=== PATIENT | female | born 1930 | race Caucasian/White ===

== ENCOUNTER → 2018-07-23 | Outpatient (CLI) | payer MEDICARE ==
--- NOTE | 2018-07-23 15:04 | Diagnostic Imaging Report ---
EXAM: Renal Ultrasound INDICATION: UTI COMPARISON: None TECHNIQUE: Transverse and longitudinal images of the kidneys and bladder were obtained. FINDINGS: Right Kidney: Length: Measures up to 10.2 cm Appearance: Normal echogenicity. Collecting system: No hydronephrosis Stones: None Cyst/Mass: None Left Kidney: Length: Measures up to 10.6 cm Appearance: Normal echogenicity. Collecting system: No hydronephrosis Stones: None Cyst/Mass: None Bladder: Unremarkable in appearance. Bilateral ureteral jets are seen. IMPRESSION: Unremarkable bilateral renal ultrasound. Signed by: Dr. Geo Albert MD on 07/23/2018 3:01 PM
--- NOTE | 2018-07-23 15:32 | Diagnostic Imaging Report ---
Exam: [facility] - Two Views Clinical History: UTI Comparison: Same day bilateral renal ultrasound. Findings: Bowel gas partially obscures visualization of the bilateral kidneys. No evidence of stone overlying the urinary system. Nonobstructive bowel gas pattern with moderate retained stool. No acute bony abnormality. 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 Impression: No acute radiographic abnormality. No radiographic evidence of urinary stone. Signed by: Dr. Geo Albert MD on 07/23/2018 3:29 PM
== END ==
LOC: US 13:53
PROVIDERS: ATTEND Urology
DX: N39.0 Urinary tract infection, site not specified (principal)
CPT/HCPCS: 74018; 76770

== ENCOUNTER 2019-01-19 15:08 | Emergency (ER) | payer MEDICARE ==
[~2019-01-19] VITALS: Ht 170.2 cm; Wt 63.5 kg
--- OUTSIDE RECORDS SUMMARY | 2019-01-19 15:12 | XMS REPORT | Continuity of Care Document ---
Author Author [facility] Interface Address Unknown Phone Unavailable Problems Problem Status Onset Date Classification Date Reported Comments Source AMS/HYPONATREMIA Active 04/01/2018 [facility] URINARY SYMPTOMS Active 04/01/2018 [facility] Auditory hallucinations 03/24/2018 03/27/2018 [facility] Acute lower UTI 03/24/2018 03/27/2018 [facility] AMS Active 03/24/2018 [facility] CHF EXACERBATION Active 04/17/2017 [facility] WEAKNESS/SOB Active 04/17/2017 [facility] CVA Active 05/30/2014 [facility] FALL Active 05/30/2014 [facility] STROKE Active 05/30/2014 [facility] Atrial fibrillation Active Problem 04/05/2018 [facility] [place] Bradycardia, severe sinus Active Problem 04/05/2018 [facility] [place] Pacemaker Active Problem 04/05/2018 [facility] CVA (<span ID="[id number]</span>) Resolved Problem 04/05/2018 [facility] Hemiparesis, right Active Problem 04/05/2018 [facility] [place] HTN (<span ID="[id number]">Confirmed</span>) Active Problem 04/05/2018 [facility] [place] Implantation of cardiac pacemaker Active Problem 04/05/2018 [facility] [place] 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 [facility] [place] SSS (<span ID="[id number]">Confirmed</span>) Active Problem 04/05/2018 [facility] [place] Temporary cardiac pacemaker procedure Active Problem 04/05/2018 [facility] [place] CVA Active [facility] HEART FAILURE, UNSPECIFIED Active [facility] ALTERED MENTAL STATUS, UNSPECIFIED Active [facility] HYPO-OSMOLALITY AND HYPONATREMIA Active [facility] Medications Medication Details Route Status Patient Instructions Ordering Provider Order Date Source Vitamin B 12 1,000 microgram, 2 tab, Route: PO, Drug form: TAB, Daily, Dosing Weight 77.273, kg, Start date: 04/03/18 14:00:00 CDT, Duration: 30 day, Stop date: 05/03/18 9:00:00 CDTNotes: (Same As: Vitamin B12) No Longer Active 04/03/2018 [facility] Levofloxacin 500 MG Oral Tablet [Levaquin] 500 mg=1 tab, PO, Q24H, X 7 day, # 7 tab, 0 Refill(s), Pharmacy: [facility] [id number] Active 04/02/2018 [facility] bumetanide 1 mg oral tablet 1 mg=1 tab, PO, Daily, # 30 tab, 0 Refill(s), other Active 04/02/2018 [facility] cyanocobalamin 1000 mcg with salcaprozate sodium oral tablet 1,000 microgram, PO, Daily, # 30 tab, 0 Refill(s), Pharmacy: [facility] [id number] Active 04/02/2018 [facility] Aspirin Enteric Coated 81 mg, 1 tab, Route: PO, Drug form: ECTAB, Daily, Dosing Weight 77.273, kg, Start date: 04/02/18 9:00:00 CDT, Duration: 30 day, Stop date: 05/01/18 9:00:00 CDTNotes: Do not crush or chew. (Same As: Ecotrin) Inactive 04/02/2018 [facility] valsartan 320 mg, Route: PO, Drug form: TAB, Bedtime, Dosing Weight 77.273, kg, Start date: 04/01/18 21:00:00 CDT, Duration: 30 day, Stop date: 04/30/18 21:00:00 CDT Inactive 04/02/2018 [facility] Amlodipine 10 mg, 2 tab, Route: PO, Drug form: TAB, Bedtime, Dosing Weight 77.273, kg, Start date: 04/01/18 21:00:00 CDT, Duration: 30 day, Stop date: 04/30/18 21:00:00 CDTNotes: (Same as: Norvasc) No Longer Active 04/02/2018 [facility] Diflucan 150 mg, 3 tab, Route: PO, Drug form: TAB, ONCE, Dosing Weight 77.273, kg, Start date: 04/01/18 20:09:00 CDT, Stop date: 04/01/18 20:09:00 CDT, ABX Indication: Other (specify in Comments)Notes: (Same as: Diflucan) Inactive 04/02/2018 [facility] cefepime 1 gm, Route: IVPB, [id number], Dosing Weight 77.273, kg, (CrCl >/=50 ml/min), Start date: 04/01/18 20:00:00 CDT, Stop date: 04/10/18 15:00:00 CDT, ABX Indication: Urinary Tract InfectionNotes: (Same As: Maxipime) MEDICATION WASTE Product Size: 1000 mg Product Wasted: ___ mg No Longer Active 04/02/2018 [facility] Hydralazine 10 mg, 0.5 mL, Route: IVP, Drug form: INJ, Q4H, Dosing Weight 77.273, kg, PRN Hypertension, Start date: 04/01/18 19:16:00 CDT, Duration: 30 day, Stop date: 05/01/18 19:15:00 CDTNotes: (Same as: Tobias cárdenas) Push over 5 minutes No Longer Active 04/02/2018 [facility] Melatonin 3 mg, 1 tab, Route: PO, Drug form: TAB, Bedtime, Dosing Weight 77.273, kg, PRN Sleep, Start date: 04/01/18 19:16:00 CDT, Duration: 30 day, Stop date: 05/01/18 19:15:00 CDTNotes: (Same as: Melatonin) No Longer Active 04/02/2018 [facility] Bumex 1 mg, BID, 0 Refill(s) No Longer Active 04/01/2018 [facility] cephalexin 500 mg oral capsule 500 mg=1 cap, PO, QID, # 20 cap, 0 Refill(s) No Longer Active 04/01/2018 [facility] Nitrofurantoin 100 MG Oral Capsule [Macrobid] 100 mg=1 cap, PO, BID, # 14 cap, 0 Refill(s) No Longer Active 04/01/2018 [facility] valsartan 320 mg oral tablet 320 mg=1 tab, PO, Bedtime, # 30 tab, 0 Refill(s) Active 04/01/2018 [facility] spironolactone 25 mg oral tablet 25 mg=1 tab, PO, Daily, # 30 tab, 3 Refill(s) Active 04/01/2018 [facility] Ondansetron 4 mg, 2 mL, Route: IVP, Drug form: INJ, Q6H, Dosing Weight 77.273, kg, PRN Nausea & Vomiting, Start date: 04/01/18 15:21:00 CDT, Duration: 30 day, Stop date: 05/01/18 15:20:00 CDTNotes: (Same as: Hanna) MEDICATION WASTE Product Size: 4 mg Product Wasted: ___ mg No Longer Active 04/01/2018 [facility] Docusate 100 mg, 1 cap, Route: PO, Drug form: CAP, BID, Dosing Weight 77.273, kg, PRN as needed for constipation, Start date: 04/01/18 15:21:00 CDT, Duration: 30 day, Stop date: 05/01/18 15:20:00 CDTNotes: (Same as: Colace) (Do Not Crush) No Longer Active 04/01/2018 [facility] Acetaminophen 325 MG / Hydrocodone Bitartrate 5 MG Oral Tablet 1 tab, Route: PO, Drug Form: TAB, Dosing Weight 77.273, kg, Q6H, PRN Pain Score 4-6, Start date: 04/01/18 15:21:00 CDT, Duration: 30 day, Stop date: 05/01/18 15:20:00 CDTNotes: (Same as: [place] 325/5) Do not exceed 4gm/day of acetaminophen. No Longer Active 04/01/2018 [facility] Acetaminophen 650 mg, 2 tab, Route: PO, Drug form: TAB, Q6H, Dosing Weight 77.273, kg, PRN Pain 1-3/Temp > 100.4 F, Start date: 04/01/18 15:21:00 CDT, Duration: 30 day, Stop date: 05/01/18 15:20:00 CDTNotes: Do not exceed 4 gm/day. (Same as: Tylenol) No Longer Active 04/01/2018 [facility] NS 1,000 mL 1,000 mL, Rate: 75 ml/hr, Infuse over: 13.3 hr, Route: IV, Dosing Weight 77.273 kg, Total Volume: 1,000, Start date: 04/01/18 14:27:00 CDT, Duration: 30 day, Stop date: 05/01/18 14:26:00 CDT, 1.94, m2 No Longer Active 04/01/2018 [facility] Sodium Chloride 0.9% (Bolus) IV 1,000 mL, 1000 ml/hr, Infuse Over: 1 hr, Route: IV, 1,000, Drug form: INJ, ONCE, Priority: STAT, Dosing Weight 77.273 kg, Start date: 04/01/18 14:25:00 CDT, Stop date: 04/01/18 14:25:00 CDT Inactive 04/01/2018 [facility] NS (Bolus) IV 250 mL, 250 ml/hr, Infuse Over: 1 hr, Route: IV, ONCE, Priority: STAT, Dosing Weight 77.273 kg, Start date: 04/01/18 13:52:00 CDT, Stop date: 04/01/18 13:52:00 CDT Inactive 04/01/2018 [facility] cephalexin 500 mg oral capsule 500 mg=1 cap, PO, QID, X 5 day, # 20 cap, 0 Refill(s), Pharmacy: [facility] [id number] Active 03/24/2018 [facility] Ceftriaxone 1 gm, Route: IVP, ONCE, Dosing Weight 78.636, kg, Priority: STAT, Start date: 03/24/18 17:05:00 CDT, Stop date: 03/24/18 17:05:00 CDT, ABX Indication: Urinary Tract InfectionNotes: (Same As: Rocephin). Use with 100 mL NS and infuse over 30 min MEDICATION WASTE Product Size: 1000 mg Product Wasted: ___ mg Inactive 03/24/2018 [facility] Saline Flush 0.9% 10 mL, Route: IVP, Drug Form: INJ, Dosing Weight 92.5, kg, PRN, PRN Line Flush, Start date: 03/24/18 14:47:00 CDT, Duration: 30 day, Stop date: 04/23/18 14:46:00 CDTNotes: (Same as: BD Posiflush) Inactive 03/24/2018 [facility] Spironolactone 25 MG Oral Tablet [Aldactone] 25 mg=1 tab, PO, Daily, # 30 tab, 0 Refill(s), Pharmacy: [facility] [id number] Active 04/21/2017 [facility] bumetanide 1 mg oral tablet 1 mg=1 tab, PO, BID, # 60 tab, 0 Refill(s), Pharmacy: [facility] [facility] [id number] Active 04/21/2017 [facility] valsartan 320 mg oral tablet 320 mg=1 tab, PO, Daily, # 30 tab, 0 Refill(s), Pharmacy: [facility] [id number] Active 04/21/2017 [facility] Bumex 2 mg, Route: IVP, Q6H, Dosing Weight 92.5, kg, Start date: 04/21/17 0:00:00 CDT, Duration: 4 doses or times, Stop date: 04/21/17 18:00:00 CDT No Longer Active 04/21/2017 [facility] Bumex 2 mg, 8 mL, Route: IVP, Drug form: INJ, Q6H, Dosing Weight 92.5, kg, Priority: NOW, Start date: 04/20/17 18:26:00 CDT, Duration: 4 doses or times, Stop date: 04/21/17 12:00:00 CDTNotes: (Same As: Bumex) No Longer Active 04/20/2017 [facility] Bumex 2 mg, 8 mL, Route: IVP, Drug form: INJ, ONCE, Dosing Weight 92.5, kg, Priority: Routine, Start date: 04/20/17 14:30:00 CDT, Stop date: 04/20/17 14:30:00 CDTNotes: (Same As: Bumex) Inactive 04/20/2017 [facility] potassium chloride 20 mEq oral tablet, extended release 20 mEq, 1 tab, Route: PO, Drug form: ERTAB, Daily, Dosing Weight 92.5, kg, Start date: 04/20/17 9:00:00 CDT, Duration: 30 day, Stop date: 05/19/17 9:00:00 CDTNotes: (Same as: K-Dur 20) "Do Not Crush" With food and full glass of water No Longer Active 04/20/2017 [facility] Bumex 2 mg, 8 mL, Route: IVP, Drug form: INJ, Q8H, Dosing Weight 92.5, kg, Priority: NOW, Start date: 04/19/17 20:38:00 CDT, Duration: 3 doses or times, Stop date: 04/20/17 12:00:00 CDTNotes: (Same As: Bumex) No Longer Active 04/20/2017 [facility] Furosemide 40 MG Oral Tablet 40 mg, 1 tab, Route: PO, Drug form: TAB, After Lunch, Dosing Weight 92.5, kg, Start date: 04/19/17 12:30:00 CDT, Duration: 30 day, Stop date: 05/18/17 12:30:00 CDTNotes: (Same as: Lasix) May cause GI upset. Give with food or milk. Inactive 04/19/2017 [facility] Bumex 2 mg, 8 mL, Route: IVP, Drug form: INJ, Q12H, Dosing Weight 92.5, kg, Start date: 04/18/17 21:00:00 CDT, Duration: 30 day, Stop date: 05/18/17 9:00:00 CDTNotes: (Same As: Bumex) No Longer Active 04/19/2017 [facility] Diovan 320 mg, 2 tab, Route: PO, Drug form: TAB, QPM, Dosing Weight 92.5, kg, Start date: 04/18/17 17:00:00 CDT, Duration: 30 day, Stop date: 05/17/17 17:00:00 CDTNotes: Same as Diovan No Longer Active 04/18/2017 [facility] potassium chloride 20 mEq oral tablet, extended release 20 mEq, 1 tab, Route: PO, Drug form: ERTAB, TID, Dosing Weight 92.5, kg, Priority: NOW, Start date: 04/18/17 12:25:00 CDT, Duration: 30 day, Stop date: 05/18/17 9:00:00 CDTNotes: (Same as: K-Dur 20) "Do Not Crush" With food and full glass of water No Longer Active 04/18/2017 [facility] Saline Flush 0.9% 10 ml, Route: IVP, Drug Form: INJ, Dosing Weight 93.636, kg, Q12H, Start date: 04/18/17 9:00:00 CDT, Duration: 30 day, Stop date: 05/17/17 21:00:00 CDTNotes: (Same as: BD Posiflush) No Longer Active 04/18/2017 [facility] Furosemide 20 mg, 2 mL, Route: IVP, Drug form: INJ, Q12H, Dosing Weight 93.636, kg, Start date: 04/18/17 9:00:00 CDT, Duration: 30 day, Stop date: 05/17/17 21:00:00 CDTNotes: (Same as: Lasix) Inactive 04/18/2017 [facility] metoprolol extended release 50 mg, 1 tab, Route: PO, Drug form: ERTAB, Daily, Start date: 04/18/17 9:00:00 CDT, Duration: 30 day, Stop date: 05/17/17 9:00:00 CDTNotes: (Same as: Toprol XL) May split tab, but do not crush. No Longer Active 04/18/2017 [facility] Amlodipine 10 mg, 2 tab, Route: PO, Drug form: TAB, Daily, Dosing Weight 93.636, kg, Start date: 04/18/17 9:00:00 CDT, Duration: 30 day, Stop date: 05/17/17 9:00:00 CDTNotes: (Same as: Norvasc) Inactive 04/18/2017 [facility] ergocalciferol 50,000 IntlUnit, 1 cap, Route: PO, Drug form: CAP, Daily, Dosing Weight 93.636, kg, Start date: 04/18/17 9:00:00 CDT, Duration: 3 day, Stop date: 04/20/17 9:00:00 CDTNotes: (Same as: Vitamin D) "Do Not Crush" No Longer Active 04/18/2017 [facility] Zofran 4 mg, 2 mL, Route: IV, Drug form: INJ, Q4H, Dosing Weight 92.5, kg, PRN as needed for nausea/vomiting, Start date: 04/18/17 5:53:00 CDT, Duration: 30 day, Stop date: 05/18/17 5:52:00 CDTNotes: (Same as: Zofran) MEDICATION WASTE Product Size: 4 mg Product Wasted: ___ mg No Longer Active 04/18/2017 [facility] Aspirin Enteric Coated 81 mg, 1 tab, Route: PO, Drug form: ECTAB, Q24H, Dosing Weight 93.636, kg, Start date: 04/18/17 0:00:00 CDT, Duration: 30 day, Stop date: 05/17/17 0:00:00 CDTNotes: Do not crush or chew. (Same As: Ecotrin) No Longer Active 04/18/2017 [facility] Calcium Gluconate 3 gm, 30 mL, Route: IVPB, Drug form: INJ, PRN, Dosing Weight 93.636, kg, PRN Abnormal Lab Result, For NON-ICU Patients Only., Start date: 04/17/17 22:08:00 CDT, Duration: 30 day, Stop date: 05/17/17 22:07:00 CDTNotes: WASTE: F/P - Sink; E - Municipal Trash Bin No Longer Active 04/18/2017 [facility] Magnesium Sulfate 2 gm, 50 mL, Route: IVPB, Drug form: INJ, PRN, Dosing Weight 93.636, kg, PRN Abnormal Lab Result, For NON-ICU Patients Only., Start date: 04/17/17 22:08:00 CDT, Duration: 30 day, Stop date: 05/17/17 22:07:00 CDTNotes: WASTE: F/P - Sink; E - Municipal Trash Bin No Longer Active 04/18/2017 [facility] Magnesium Oxide 800 mg, 2 tab, Route: PO, Drug form: TAB, PRN, Dosing Weight 93.636, kg, PRN Abnormal Lab Result, For NON-ICU Patients Only., Start date: 04/17/17 22:08:00 CDT, Duration: 30 day, Stop date: 05/17/17 22:07:00 CDTNotes: (Same as: Mag-Ox 400) Magnesium oxide [id number] elemental magnesium Dose=____mg magnesium oxide (___mg elemental magnesium) No Longer Active 04/18/2017 [facility] sodium phosphate + D5W 250 mL 30 mmol, 10 mL, Route: IVPB, PRN, Dosing Weight 93.636, kg, PRN Abnormal Lab Result, For NON-ICU Patients Only., Start date: 04/17/17 22:08:00 CDT, Duration: 30 day, Stop date: 05/17/17 22:07:00 CDT No Longer Active 04/18/2017 [facility] potassium phosphate + sodium chloride 0.9% INJ 250 mL 30 mmol, 10 mL, Route: IVPB, PRN, Dosing Weight 93.636, kg, PRN Abnormal Lab Result, For NON-ICU Patients Only., Start date: 04/17/17 22:08:00 CDT, Duration: 30 day, Stop date: 05/17/17 22:07:00 CDTNotes: (Same as: K Phosphate.) 1 mMol phoshate has 1.47 mEq potassium Infuse over 4 hours No Longer Active 04/18/2017 [facility] potassium chloride 10 mEq, 100 mL, Route: IVPB, Drug form: INJ, PRN, Dosing Weight 93.636, kg, PRN Abnormal Lab Result, For NON-ICU Patients Only, Start date: 04/17/17 22:08:00 CDT, Duration: 30 day, Stop date: 05/17/17 22:07:00 CDTNotes: Infuse at a rate of 10 mEq/hr. (Same as: KCL) No Longer Active 04/18/2017 [facility] potassium phosphate-sodium phosphate 250 mg-280 mg-160 mg oral powder for reconstitution 2 pkt, Route: PO, Drug Form: PDR/REC, Dosing Weight 93.636, kg, PRN, PRN Abnormal Lab Result, For NON-ICU Patients Only, Start date: 04/17/17 22:08:00 CDT, Duration: 30 day, Stop date: 05/17/17 22:07:00 CDTNotes: (Same as: Phos-NaK) Each 1.5 gm pkt has 250mg phosphorous. Mix w/2.5oz water and stir. No Longer Active 04/18/2017 [facility] Saline Flush 0.9% 10 ml, Route: IVP, Drug Form: INJ, Dosing Weight 93.636, kg, PRN, PRN Line Flush, Start date: 04/17/17 22:08:00 CDT, Duration: 30 day, Stop date: 05/17/17 22:07:00 CDT Inactive 04/18/2017 [facility] Enoxaparin 40 mg, 0.4 mL, Route: SUB-Q, Drug form: INJ, [id number], Dosing Weight 93.636, kg, Start date: 04/17/17 22:00:00 CDT, Duration: 30 day, Stop date: 05/16/17 22:00:00 CDTNotes: (Same as: Lovenox) No Longer Active 04/18/2017 [facility] Nitroglycerin 0.4 MG Sublingual Tablet [Nitrostat] 0.4 mg, 1 tab, Route: SL, Drug form: TAB, Q5Min, Dosing Weight 93.636, kg, PRN Chest Pain, Start date: 04/17/17 21:50:00 CDT, Duration: 3 doses or times, Stop date: Limited # of timesNotes: (Same as:Nitroquick, Nitrostat) "Do Not Crush" Sublingual tablet No Longer Active 04/18/2017 [facility] Hydralazine 10 mg, 0.5 mL, Route: IV, Drug form: INJ, Q4H, Dosing Weight 93.636, kg, PRN Hypertension, Start date: 04/17/17 21:49:00 CDT, Duration: 30 day, Stop date: 05/17/17 21:48:00 CDTNotes: (Same as: Apresoline) Push over 5 minutes No Longer Active 04/18/2017 [facility] Lopressor 2.5 mg, 2.5 mL, Route: IVP, Drug form: INJ, Q2H, Dosing Weight 93.636, kg, PRN Tachycardia, Start date: 04/17/17 21:49:00 CDT, Duration: 30 day, Stop date: 05/17/17 21:48:00 CDTNotes: (Same as: Lopressor) Push over 2 minutes No Longer Active 04/18/2017 [facility] Lorazepam 0.5 mg, 1 tab, Route: PO, Drug form: TAB, TID, Dosing Weight 93.636, kg, PRN Anxiety, Start date: 04/17/17 21:49:00 CDT, Duration: 30 day, Stop date: 05/17/17 21:48:00 CDTNotes: (Same as: Ativan) No Longer Active 04/18/2017 [facility] Furosemide 40 MG Oral Tablet 40 mg=1 tab, PO, Daily, 0 Refill(s) No Longer Active 04/18/2017 [facility] metoprolol tartrate 50 mg oral tablet 50 mg=1 tab, PO, Daily, 0 Refill(s) Active 04/18/2017 [facility] amLODIPine 10 mg oral tablet 10 mg=1 tab, PO, Daily, 0 Refill(s) Active 04/18/2017 [facility] Aspirin Enteric Coated 81 mg oral delayed release tablet 81 mg=1 tab, PO, Daily, 0 Refill(s) Active 04/18/2017 [facility] Lasix 40 mg, 4 mL, Route: IVP, Drug form: INJ, ONCE, Dosing Weight 93.636, kg, Priority: STAT, Start date: 04/17/17 19:03:00 CDT, Stop date: 04/17/17 19:03:00 CDTNotes: (Same as: Lasix) MEDICATION WASTE Product Size: 40 mg Product Wasted: ___ mg Inactive 04/18/2017 [facility] Saline Flush 0.9% 10 mL, Route: IVP, Drug Form: INJ, Dosing Weight 93.636, kg, PRN, PRN Line Flush, Start date: 04/17/17 19:03:00 CDT, Duration: 30 day, Stop date: 05/17/17 19:02:00 CDTNotes: (Same as: BD Posiflush) No Longer Active 04/18/2017 [facility] Lactulose 667 MG/ML Oral Solution 10 gm=15 mL, PO, BID, # 300 mL, 0 Refill(s) Active 07/04/2014 [facility] amLODIPine 5 mg oral tablet 5 mg=1 tab, PO, Daily, # 30 tab, 0 Refill(s) Active 07/04/2014 [facility] Potassium Chloride 20 MEQ Extended Release Tablet 20 mEq=1 tab, PO, Daily, # 30 tab, 0 Refill(s) Active 07/04/2014 [facility] Furosemide 40 MG Oral Tablet [Lasix] 40 mg=1 tab, PO, Daily, # 30 tab, 0 Refill(s) Active 07/04/2014 [facility] ergocalciferol 50,000 intl units oral capsule 50,000 IntlUnit=1 cap, PO, qWeek, # 3 cap, 0 Refill(s) Active 07/04/2014 [facility] metoprolol tartrate 25 mg oral tablet 25 mg=1 tab, PO, [id number], # 60 tab, 0 Refill(s) Active 07/04/2014 [facility] apixaban 2.5 mg oral tablet 5 mg=2 tab, PO, BID, # 60 tab, 0 Refill(s) Active 07/04/2014 [facility] Aspirin 81 MG Enteric Coated Tablet 81 mg=1 tab, PO, Daily, # 100 tab, 0 Refill(s) Active 07/04/2014 [facility] Furosemide 40 MG Oral Tablet [Lasix] 40 mg, 1 tab, Route: PO, Drug form: TAB, Daily, Dosing Weight 94.773, kg, Start date: 07/04/14 9:00:00, Duration: 30 day, Stop date: 08/02/14 9:00:00Notes: (Same as: Lasix) May cause GI upset. Give with food or milk. Inactive 07/04/2014 [facility] Potassium Chloride 20 MEQ Extended Release Tablet 20 mEq, 1 tab, Route: PO, Drug form: ERTAB, Daily, Dosing Weight 94.773, kg, Start date: 07/03/14 9:00:00, Duration: 30 day, Stop date: 08/01/14 9:00:00Notes: (Same as: K-Dur 20) "Do Not Crush" With food and full glass of water No Longer Active 07/03/2014 [facility] Potassium Chloride 40 mEq, 2 tab, Route: PO, Drug form: ERTAB, ONCE, Dosing Weight 94.773, kg, Start date: 07/02/14 10:00:00, Stop date: 07/02/14 10:00:00Notes: (Same as: K-Dur 20) "Do Not Crush" With food and full glass of water Inactive 07/02/2014 [facility] Furosemide 40 MG Oral Tablet [Lasix] 40 mg, 1 tab, Route: PO, Drug form: TAB, BID, Dosing Weight 94.773, kg, Start date: 06/30/14 17:00:00, Duration: 30 day, Stop date: 07/30/14 9:00:00Notes: (Same as: Lasix) May cause GI upset. Give with food or milk. No Longer Active 06/30/2014 [facility] boudreaus butt paste boudreaus butt paste, 1 terell, Route: TOP, Q12H, 06/29/14 9:00:00, Duration: 30 day, Stop date: 07/28/14 21:00:00 Inactive 06/29/2014 [facility] zinc oxide topical 1 appl, Route: TOP, Q12H, Drug form: OINT, Start date: 06/29/14 9:00:00, Duration: 30 day, Stop date: 07/28/14 21:00:00 No Longer Active 06/29/2014 [facility] Furosemide 40 MG Oral Tablet [Lasix] 40 mg, 1 tab, Route: PO, Drug form: TAB, Daily, Dosing Weight 94.773, kg, Start date: 06/28/14 9:00:00, Duration: 30 day, Stop date: 07/27/14 9:00:00Notes: (Same as: Lasix) May cause GI upset. Give with food or milk. No Longer Active 06/28/2014 [facility] Furosemide 40 MG Oral Tablet 40 mg, 1 tab, Route: PO, Drug form: TAB, ONCE, Dosing Weight 94.773, kg, Start date: 06/28/14 3:40:00, Stop date: 06/28/14 3:40:00Notes: (Same as: Lasix) May cause GI upset. Give with food or milk. Inactive 06/28/2014 [facility] Cipro 500 mg, 1 tab, Route: PO, Drug form: TAB, [id number], Dosing Weight 94.773, kg, Start date: 06/21/14 18:00:00, Duration: 5 day, Stop date: 06/26/14 6:00:00Notes: May interfere w/enteral feedings - Take 1 hr before or 2 hrs after antacids, dairy pdt & minerals. On empty stomach. No Longer Active 06/21/2014 [facility] Furosemide 40 MG Oral Tablet [Lasix] 20 mg, 1 tab, Route: PO, Drug form: TAB, Daily, Dosing Weight 94.773, kg, Start date: 06/21/14 9:00:00, Stop date: 07/20/14 9:00:00Notes: (Same as: Lasix) May cause GI upset. Give with food or milk. No Longer Active 06/21/2014 [facility] Furosemide 40 MG Oral Tablet [Lasix] 40 mg, 1 tab, Route: PO, Drug form: TAB, ONCE, Dosing Weight 94.773, kg, Priority: NOW, Start date: 06/20/14 19:14:00, Stop date: 06/20/14 19:14:00Notes: (Same as: Lasix) May cause GI upset. Give with food or milk. Inactive 06/21/2014 [facility] Vitamin D 50,000 IntlUnit, 1 cap, Route: PO, Drug form: CAP, qWeek, Dosing Weight 94.773, kg, Start date: 06/19/14 15:00:00, Duration: 5 doses or times, Stop date: 07/17/14 9:00:00Notes: (Same as: Vitamin D) "Do Not Crush" No Longer Active 06/19/2014 [facility] cloNIDine 0.3 mg/24 hr transdermal film, extended release 1 patch, Route: TOP, Drug Form: ERFILM, Dosing Weight 95.455, kg, Q7D, Start date: 06/19/14 9:00:00, Duration: 30 day, Stop date: 07/17/14 9:00:00Notes: Patch delivers 0.3 mg/24 hours; Patch is applied weekly. [id number]. "Remove old patch before application of new patch" No Longer Active 06/19/2014 [facility] Clonidine Hydrochloride 0.1 MG Oral Tablet 0.1 mg, 1 tab, Route: PO, Drug form: TAB, Q12H, Dosing Weight 94.773, kg, PRN Elevated BP, Start date: 06/15/14 21:00:00, Stop date: 07/15/14 9:00:00, SBP >180Notes: (Same As: Catapres) No Longer Active 06/16/2014 [facility] metoprolol tartrate 25 mg, 1 tab, Route: PO, Drug form: TAB, [id number], Dosing Weight 94.773, kg, Start date: 06/15/14 18:00:00, Duration: 30 day, Stop date: 07/15/14 6:00:00Notes: (Same as: Lopressor) No Longer Active 06/15/2014 [facility] Norvasc 5 mg, 1 tab, Route: PO, Drug form: TAB, Daily, Dosing Weight 95.455, kg, Start date: 06/13/14 9:00:00, Duration: 30 day, Stop date: 07/12/14 9:00:00Notes: (Same as: Norvasc) No Longer Active 06/13/2014 [facility] Saline Flush 0.9% 5 ml, Route: IVP, Drug Form: INJ, Dosing Weight 94.773, kg, Q12H, Start date: 06/13/14 9:00:00, Duration: 30 day, Stop date: 07/12/14 21:00:00Notes: (Same as: BD Posiflush) No Longer Active 06/13/2014 [facility] lactulose 10 g/15 mL oral syrup 10 gm, 15 mL, Route: PO, Drug Form: SYRP, Dosing Weight 95.455, kg, BID, Start date: 06/13/14 9:00:00, Duration: 30 day, Stop date: 07/12/14 17:00:00Notes: (Same as:Chronulac) No Longer Active 06/13/2014 [facility] Compression Stockings 1 ea, Route: TOP, Dosing Weight 94.773, kg, Daily, Start date: 06/13/14 9:00:00 No Longer Active 06/13/2014 [facility] aspirin 81 mg tablet, enteric coated 81 mg, 1 tab, Route: PO, Drug form: ECTAB, Daily, Dosing Weight 95.455, kg, Start date: 06/13/14 9:00:00, Duration: 30 day, Stop date: 07/12/14 9:00:00Notes: Do not crush or chew. (Same As: Ecotrin) No Longer Active 06/13/2014 [facility] Eliquis 5 mg, 2 tab, Route: PO, Drug form: TAB, BID, Dosing Weight 95.455, kg, Start date: 06/13/14 9:00:00, Duration: 30 day, Stop date: 07/12/14 17:00:00Notes: Same as: Eliquis No Longer Active 06/13/2014 [facility] Saline Flush 0.9% 5 ml, Route: IVP, Drug Form: INJ, Dosing Weight 94.773, kg, PRN, PRN Line Flush, Start date: 06/13/14 8:18:00, Duration: 30 day, Stop date: 07/13/14 8:17:00Notes: (Same as: BD Posiflush) No Longer Active 06/13/2014 [facility] Trazodone 50 mg, 1 tab, Route: PO, Drug form: TAB, Bedtime, Dosing Weight 95.455, kg, PRN Insomnia, Start date: 06/13/14 8:18:00, Duration: 30 day, Stop date: 07/13/14 8:17:00Notes: (Same As: Desyrel) No Longer Active 06/13/2014 [facility] Acetaminophen 650 mg, 2 tab, Route: PO, Drug form: TAB, Q4H, Dosing Weight 94.773, kg, PRN Pain Score 1-3, Start date: 06/13/14 8:18:00, Duration: 30 day, Stop date: 07/13/14 8:17:00Notes: Do not exceed 4 gm/day. (Same as: Tylenol) No Longer Active 06/13/2014 [facility] Cipro 500 mg, 1 tab, Route: PO, Drug form: TAB, [id number], Dosing Weight 95.455, kg, Start date: 06/13/14 4:00:00, Duration: 30 day, Stop date: 07/12/14 16:00:00Notes: May interfere w/enteral feedings - Take 1 hr before or 2 hrs after antacids, dairy pdt & minerals. On empty stomach. No Longer Active 06/13/2014 [facility] Lopressor 25 mg, 1 tab, Route: PO, Drug form: TAB, Q6H, Dosing Weight 95.455, kg, Start date: 06/13/14 0:00:00, Duration: 30 day, Stop date: 07/12/14 18:00:00Notes: (Same as: Lopressor) No Longer Active 06/13/2014 [facility] acetaminophen-hydrocodone 325 mg-5 mg oral tablet 1 tab, Route: PO, Drug Form: TAB, Dosing Weight 95.455, kg, Q4H, PRN Pain, Start date: 06/12/14 23:30:00, Duration: 30 day, Stop date: 07/12/14 23:29:00Notes: (Same as: [place] 325/5) Do not exceed 4gm/day of acetaminophen. No Longer Active 06/13/2014 [facility] Tylenol 650 mg, 2 tab, Route: PO, Drug form: TAB, Q4H, Dosing Weight 95.455, kg, PRN Pain, Start date: 06/12/14 23:28:00, Duration: 30 day, Stop date: 07/12/14 23:27:00Notes: Do not exceed 4 gm/day. (Same as: Tylenol) No Longer Active 06/13/2014 [facility] Dulcolax Laxative 10 mg, 1 supp, Route: NC, Drug form: SUPP, Daily, Dosing Weight 95.455, kg, PRN Constipation, Start date: 06/12/14 23:28:00, Duration: 30 day, Stop date: 07/12/14 23:27:00Notes: (Same As: Dulcolax, Bisco-Lax) No Longer Active 06/13/2014 [facility] Warfarin 2 mg, 1 tab, Route: PO, Drug form: TAB, QWeekday, Dosing Weight 95.455, kg, Start date: 06/12/14 17:00:00, Duration: 30 day, Stop date: 07/11/14 17:00:00Notes: Nurse to ensure documentation of patient e ducation per anticoagulation policy. Avoid large intake of vitamin-K containing foods diet. (Same As: Coumadin) Inactive 06/12/2014 [facility] Eliquis 5 mg, 2 tab, Route: PO, Drug form: TAB, BID, Dosing Weight 95.455, kg, Start date: 06/12/14 17:00:00, Duration: 30 day, Stop date: 07/12/14 9:00:00Notes: Same as: Eliquis Inactive 06/12/2014 [facility] metoprolol tartrate 25 mg oral tablet 25 mg=1 tab, PO, Q6H, # 1 tab, 0 Refill(s), given to patient On Hold 06/12/2014 [facility] Lactulose 667 MG/ML Oral Solution 10 gm=15 mL, PO, BID, # 1 mL, 0 Refill(s), given to patient On Hold 06/12/2014 [facility] 168 HR Clonidine 0.0125 MG/HR Transdermal Patch 1 patch, TOP, Q7D, # 1 patch, 0 Refill(s), given to patient On Hold 06/12/2014 [facility] ciprofloxacin 500 mg oral tablet 500 mg=1 tab, PO, [id number], # 1 tab, 0 Refill(s), given to patient On Hold 06/12/2014 [facility] bisacodyl 10 mg rectal suppository 10 mg=1 supp, NC, Daily, Constipation, # 1 supp, 0 Refill(s), given to patient On Hold 06/12/2014 [facility] Aspirin 81 MG Enteric Coated Tablet 81 mg=1 tab, PO, Daily, # 1 tab, 0 Refill(s), given to patient On Hold 06/12/2014 [facility] apixaban 2.5 mg oral tablet 5 mg=2 tab, PO, BID, # 1 tab, 0 Refill(s), given to patient On Hold 06/12/2014 [facility] Acetaminophen 325 MG Oral Tablet 650 mg=2 tab, PO, Q4H, Pain, # 1 tab, 0 Refill(s), given to patient On Hold 06/12/2014 [facility] Acetaminophen 325 MG / Hydrocodone Bitartrate 5 MG Oral Tablet [[place] 5/325] 1 tab, PO, Q4H, Pain, # 1 tab, 0 Refill(s), given to patient On Hold 06/12/2014 [facility] Warfarin 4 mg, 2 tab, Route: PO, Drug form: TAB, Q-Sa and Head, Dosing Weight 95.455, kg, Start date: 06/10/14 17:00:00, Duration: 30 day, Stop date: 07/09/14 17:00:00Notes: Nurse to ensure documentation of patient education per anticoagulation policy. Avoid large intake of vitamin-K containing foods diet. (Same As: Coumadin) No Longer Active 06/10/2014 [facility] Warfarin 4 mg, 2 tab, Route: PO, Drug form: TAB, Q5PM, Dosing Weight 95.455, kg, Start date: 06/09/14 17:00:00, Duration: 1 doses or times, Stop date: 06/09/14 17:00:00Notes: Nurse to ensure documentation of pat ient education per anticoagulation policy. Avoid large intake of vitamin-K containing foods diet. (Same As: Coumadin) Inactive 06/09/2014 [facility] metoprolol tartrate 25 mg, 1 tab, Route: PO, Drug form: TAB, Q6H, Dosing Weight 95.455, kg, Start date: 06/09/14 12:00:00, Duration: 30 day, Stop date: 07/09/14 6:00:00Notes: (Same as: Lopressor) No Longer Active 06/09/2014 [facility] Cipro 500 mg, 1 tab, Route: PO, Drug form: TAB, [id number], Dosing Weight 95.455, kg, Start date: 06/07/14 14:00:00, Stop date: 07/06/14 14:00:00Notes: May interfere w/enteral feedings - Take 1 hr before or 2 hrs after antacids, dairy pdt & minerals. On empty stomach. No Longer Active 06/07/2014 [facility] Vancomycin 1 gm, 200 mL, Route: IVPB, Drug form: INJ, ONCE, Dosing Weight 95.455, kg, Start date: 06/07/14 12:55:00, Stop date: 06/07/14 12:55:00 No Longer Active 06/07/2014 [facility] Vitamin K1 + Sodium Chloride 0.9% IV 50 mL 10 mg, 1 mL, Route: IVPB, Drug form: INJ, ONCE, Dosing Weight 95.455, kg, Priority: STAT, Start date: 06/05/14 8:44:00, Stop date: 06/05/14 8:44:00Notes: (Same as: Aqua- [place], Vitamin K) Inactive 06/05/2014 [facility] 168 HR Clonidine 0.0125 MG/HR Transdermal Patch 1 patch, Route: TOP, Drug Form: ERFILM, Dosing Weight 95.455, kg, Q7D, Start date: 06/05/14 0:00:00, Duration: 30 day, Stop date: 07/03/14 9:00:00Notes: Patch delivers 0.3 mg/24 hours; Patch is applied weekly. [id number]. "Remove old patch before application of new patch" No Longer Active 06/05/2014 [facility] Hydralazine 20 mg, 1 mL, Route: IV, Drug form: INJ, Q2H, Dosing Weight 95.455, kg, PRN See Nurse's Notes, Start date: 06/04/14 23:51:00, Duration: 30 day, Stop date: 07/04/14 23:50:00, sbp >170Notes: (Same as: A presoline) Push over 5 minutes No Longer Active 06/05/2014 [facility] Atropine 1 mg, 10 mL, Route: IVP, Drug form: INJ, Q5Min, Dosing Weight 95.455, kg, Start date: 06/04/14 19:50:00, Duration: 3 doses or times, Stop date: 06/04/14 20:00:00 Inactive 06/05/2014 [facility] Furosemide 10 mg, 1 mL, Route: IV, Drug form: INJ, ONCE, Dosing Weight 95.455, kg, Start date: 06/04/14 18:58:00, Stop date: 06/04/14 18:58:00Notes: (Same as: Lasix) No Longer Active 06/04/2014 [facility] Terbutaline 5 mg, 1 tab, Route: PO, Drug form: TAB, Q6H, Dosing Weight 95.455, kg, PRN Bradycardia, Start date: 06/04/14 17:41:00, Duration: 30 day, Stop date: 07/04/14 17:40:00Notes: DO NOT USE IN LUTE PACKER OR APPLIER AREA (Same As: Winifred) Non-Formulary Inactive 06/04/2014 [facility] Atropine 1 mg, Route: IVP, PRN, Dosing Weight 95.455, kg, PRN Bradycardia, Start date: 06/04/14 17:15:00, Stop date: 07/04/14 17:14:00 Inactive 06/04/2014 [facility] Lactulose 667 MG/ML Oral Solution 10 gm, 15 mL, Route: PO, Drug Form: SYRP, Dosing Weight 95.455, kg, BID, Start date: 06/04/14 17:00:00, Duration: 30 day, Stop date: 07/04/14 9:00:00Notes: (Same as:Chronulac) No Longer Active 06/04/2014 [facility] Warfarin 5 mg, 1 tab, Route: PO, Drug form: TAB, Q5PM, Dosing Weight 95.455, kg, Start date: 06/03/14 17:00:00, Duration: 1 doses or times, Stop date: 06/03/14 17:00:00Notes: Nurse to ensure documentation of pat ient education per anticoagulation policy. Avoid large intake of vitamin-K containing foods diet. (Same As: Coumadin) Inactive 06/03/2014 [facility] magnesium citrate 150 ml, Route: PO, Drug Form: LIQ, Dosing Weight 95.455, kg, ONCE, Start date: 06/03/14 13:07:00, Stop date: 06/03/14 13:07:00Notes: (Same as: Citrate of Magnesia) Inactive 06/03/2014 [facility] Furosemide 40 MG Oral Tablet 80 mg, 2 tab, Route: PO, Drug form: TAB, After Lunch, Dosing Weight 95.455, kg, Start date: 06/03/14 12:30:00, Duration: 30 day, Stop date: 07/02/14 12:30:00Notes: (Same as: Lasix) May cause GI upset. Give with food or milk. No Longer Active 06/03/2014 [facility] Potassium Chloride 20 MEQ Extended Release Tablet 20 mEq, 1 tab, Route: PO, Drug form: ERTAB, BID, Dosing Weight 95.455, kg, Start date: 06/03/14 9:00:00, Duration: 30 day, Stop date: 07/02/14 17:00:00Notes: (Same as: K-Dur 20) "Do Not Crush" With food and full glass of water No Longer Active 06/03/2014 [facility] Vitamin D 50,000 IntlUnit, 1 cap, Route: PO, Drug form: CAP, Daily, Dosing Weight 95.455, kg, Start date: 06/03/14 9:00:00, Duration: 7 day, Stop date: 06/09/14 9:00:00Notes: (Same as: Vitamin D) "Do Not Crush" No Longer Active 06/03/2014 [facility] heparin, porcine 5,000 unit, 1 mL, Route: SUB-Q, Drug form: INJ, Q12H, Dosing Weight 95.455, kg, Start date: 06/02/14 21:00:00, Stop date: 06/06/14 16:00:00Notes: porcine heparin No Longer Active 06/03/2014 [facility] Potassium Chloride 20 MEQ Extended Release Tablet 20 mEq, 1 tab, Route: PO, Drug form: ERTAB, Daily, Dosing Weight 95.455, kg, Start date: 06/02/14 20:00:00, Duration: 30 day, Stop date: 07/02/14 9:00:00Notes: (Same as: K-Dur 20) "Do Not Crush" With food and full glass of water Inactive 06/03/2014 [facility] Tylenol 650 mg, 2 tab, Route: PO, Drug form: TAB, Q4H, Dosing Weight 95.455, kg, PRN Pain, Start date: 06/02/14 16:21:00, Duration: 30 day, Stop date: 07/02/14 16:20:00Notes: Do not exceed 4 gm/day. (Same as: Tylenol) No Longer Active 06/02/2014 [facility] Dulcolax Laxative 10 mg, 1 supp, Route: NC, Drug form: SUPP, Daily, Dosing Weight 95.455, kg, PRN Constipation, Start date: 06/02/14 15:25:00, Duration: 30 day, Stop date: 07/02/14 15:24:00Notes: (Same As: Dulcolax, Bisco-Lax) No Longer Active 06/02/2014 [facility] Acetaminophen 325 MG / Hydrocodone Bitartrate 5 MG Oral Tablet [[place] 5/325] 1 tab, Route: PO, Drug Form: TAB, Dosing Weight 95.455, kg, Q4H, PRN Pain, Start date: 06/02/14 0:45:00, Duration: 30 day, Stop date: 07/02/14 0:44:00Notes: (Same as: [place] 325/5) Do not exceed 4gm/day of acetaminophen. No Longer Active 06/02/2014 [facility] Hydralazine Hydrochloride 50 MG Oral Tablet 50 mg, 1 tab, Route: PO, Drug form: TAB, Q6H, Dosing Weight 95.455, kg, Start date: 06/01/14 18:00:00, Duration: 30 day, Stop date: 07/01/14 12:00:00Notes: (Same as: Apresoline) May interfere w/enteral feedings Take With Food No Longer Active 06/01/2014 [facility] Warfarin 2 mg, 1 tab, Route: PO, Drug form: TAB, QWeekday, Dosing Weight 95.455, kg, Start date: 06/01/14 17:00:00, Duration: 30 day, Stop date: 06/30/14 17:00:00Notes: Nurse to ensure documentation of patient education per anticoagulation policy. Avoid large intake of vitamin-K containing foods diet. (Same As: Coumadin) No Longer Active 06/01/2014 [facility] Propafenone 150 mg, 1 tab, Route: PO, Drug form: TAB, Q8H, Dosing Weight 95.455, kg, Start date: 06/01/14 16:00:00, Duration: 30 day, Stop date: 07/01/14 8:00:00Notes: (Same as: Rythmol) No Longer Active 06/01/2014 [facility] Metoprolol Route: IV, Drug form: INJ, Q2H, Dosing Weight 95.455, kg, PRN Elevated BP, Start date: 06/01/14 9:14:00, Duration: 30 day, Stop date: 07/01/14 9:13:00, pulse >120Notes: (Same as: Lopressor) Push over 2 minutes No Longer Active 06/01/2014 [facility] Hydralazine 10 mg, 0.5 mL, Route: IV, Drug form: INJ, Q4H, Dosing Weight 95.455, kg, PRN Elevated BP, sbp>160, Start date: 06/01/14 9:07:00, Duration: 30 day, Stop date: 07/01/14 9:06:00, sbp>160Notes: (Same as: Apresoline) Push over 5 minutes No Longer Active 06/01/2014 [facility] Amlodipine 5 mg, 1 tab, Route: PO, Drug form: TAB, Daily, Dosing Weight 95.455, kg, Start date: 06/01/14 9:00:00, Duration: 30 day, Stop date: 06/30/14 9:00:00Notes: (Same as: Norvasc) No Longer Active 06/01/2014 [facility] Furosemide 80 mg, 2 tab, Route: PO, Drug form: TAB, Daily, Dosing Weight 95.455, kg, Start date: 06/01/14 9:00:00, Duration: 30 day, Stop date: 06/30/14 9:00:00Notes: (Same as: Lasix) May cause GI upset. Give with food or milk. No Longer Active 06/01/2014 [facility] Coumadin 2 mg, 1 tab, Route: PO, Drug form: TAB, Bedtime, Dosing Weight 95.455, kg, Start date: 05/31/14 21:00:00, Duration: 30 day, Stop date: 06/29/14 21:00:00Notes: Nurse to ensure documentation of patient education per anticoagulation policy. Avoid large intake of vitamin-K containing foods diet. (Same As: Coumadin) Inactive 06/01/2014 [facility] Aspirin / Calcium Carbonate 81 mg, 1 tab, Route: PO, Drug form: ECTAB, Daily, Dosing Weight 95.455, kg, Start date: 05/31/14 18:00:00, Duration: 30 day, Stop date: 06/30/14 9:00:00Notes: Do not crush or chew. (Same As: Ecotrin) No Longer Active 05/31/2014 [facility] Potassium Chloride 40 mEq, 2 tab, Route: PO, Drug form: ERTAB, ONCE, Dosing Weight 95.455, kg, Start date: 05/31/14 4:48:00, Stop date: 05/31/14 4:48:00Notes: (Same as: K-Dur 20) "Do Not Crush" With food and full glass of water Inactive 05/31/2014 [facility] enalaprilat 1.25 mg, 1 mL, Route: IV, Drug form: INJ, Q6H, Dosing Weight 95.455, kg, PRN Elevated BP, Start date: 05/30/14 23:05:00, Duration: 30 day, Stop date: 06/29/14 23:04:00, for SBP > 180Notes: (Same as: Vasotec-IV) No Longer Active 05/31/2014 [facility] Labetalol 5 mg, 1 mL, Route: IV, Drug form: INJ, Q2H, Dosing Weight 95.455, kg, PRN Elevated BP, Start date: 05/30/14 23:02:00, Duration: 30 day, Stop date: 06/29/14 23:01:00, For SBP > 180Notes: (Same as: Normodyne, Trandate) Push over 2 minutes Give bolus over 2-3 minutes. No Longer Active 05/31/2014 [facility] Ondansetron 4 mg, 2 mL, Route: IVP, Drug form: INJ, Q8H, Dosing Weight 95.455, kg, PRN Nausea & Vomiting, Start date: 05/30/14 20:38:00, Duration: 30 day, Stop date: 06/29/14 20:37:00Notes: (Same as: Zofran) No Longer Active 05/31/2014 [facility] warfarin 2 mg oral tablet 2 mg=1 tab, PO, QWeekday No Longer Active 05/30/2014 [facility] Furosemide 80 mg, PO, Daily No Longer Active 05/30/2014 [facility] warfarin 4 mg oral tablet 4 mg=1 tab, PO, Q-Sa and Head No Longer Active 05/30/2014 [facility] Amlodipine 5 mg, PO, Daily On Hold 05/30/2014 [facility] Allergies, Adverse Reactions, Alerts Substance Category Reaction Severity Reaction type Status Date Reported Comments Source sulfa drugs Assertion Drug allergy Active [facility] codeine Assertion Drug allergy Active [facility] morphine Assertion Drug allergy Active [facility] Demerol Assertion Drug allergy Active [facility] Immunizations Immunization Date Given Site Status Last Updated Comments Source Results Order Name Results Value Reference Range Date Interpretation Comments Source ANEMIA STUDY Vitamin B12 Lvl 205 pg/mL 254 - 1320 04/02/2018 [facility] CHEM PANEL eGFR 42 mL/min/1.73m2 04/02/2018 Result Comment: The eGFR is calculated using the CKD-EPI formula. In most young, healthy individuals the eGFR will be >90 mL/min/1.73m2. The eGFR declines with age. An eGFR of 60-89 may be normal in some populations, particularly the elderly, for whom the CKD-EPI formula has not been extensively validated. Use of the eGFR is not recommended in the following populations: Individuals with unstable creatinine concentrations, including patients and those with serious co-morbid conditions. Patients with extremes in muscle mass or diet. The data above are obtained from the National Kid[employer] Disease Education Program (NKDEP) which additionally recommends that when the eGFR is used in patients with extremes of body mass index for purposes of drug dosing, the eGFR should be multiplied by the estimated BMI. [facility] CHEM PANEL Bili Total 1.1 mg/dL 0.2 - 1.3 04/02/2018 [facility] CHEM PANEL Alk Phos 59 unit/L 39 - 136 04/02/2018 [facility] CHEM PANEL AST 16 unit/L 0 - 37 04/02/2018 [facility] CHEM PANEL ALT 12 unit/L 0 - 65 04/02/2018 [facility] CHEM PANEL A/G Ratio 1.0 0.7 - 1.6 04/02/2018 [facility] CHEM PANEL AGAP 15.1 meq/L 10.0 - 20.0 04/02/2018 [facility] CHEM PANEL Globulin 3.5 g/dL 2.7 - 4.2 04/02/2018 [facility] CHEM PANEL Albumin Lvl 3.4 g/dL 3.5 - 5.0 04/02/2018 [facility] CHEM PANEL Total Protein 6.9 g/dL 6.4 - 8.4 04/02/2018 [facility] CHEM PANEL B/C Ratio 14 6 - 25 04/02/2018 [facility] CHEM PANEL Calcium Lvl 8.5 mg/dL 8.5 - 10.5 04/02/2018 [facility] CHEM PANEL CO2 21 meq/L 24 - 32 04/02/2018 [facility] CHEM PANEL Potassium Lvl 4.1 meq/L 3.5 - 5.1 04/02/2018 [facility] CHEM PANEL Chloride Lvl 101 meq/L 95 - 109 04/02/2018 [facility] CHEM PANEL Sodium Lvl 133 meq/L 135 - 145 04/02/2018 [facility] CHEM PANEL Glucose Lvl 85 mg/dL 70 - 99 04/02/2018 [facility] CHEM PANEL BUN 17 mg/dL 7 - 22 04/02/2018 [facility] CHEM PANEL Creatinine Lvl 1.18 mg/dL 0.50 - 1.40 04/02/2018 [facility] CHEM PANEL Magnesium Lvl 2.1 mg/dL 1.8 - 2.4 04/02/2018 [facility] HEMATOLOGY Lymphocytes 22.1 % 20.0 - 40.0 04/02/2018 [facility] HEMATOLOGY Basophils 1.3 % 0.0 - 1.0 04/02/2018 [facility] HEMATOLOGY Monocytes 6.4 % 2.0 - 12.0 04/02/2018 [facility] HEMATOLOGY Segs-Bands # 4.2 K/CMM 1.5 - 8.1 04/02/2018 [facility] HEMATOLOGY Eosinophils 1.0 % 0.0 - 4.0 04/02/2018 [facility] HEMATOLOGY Monocytes # 0.4 K/CMM 0.0 - 0.8 04/02/[address] [facility] Lymphocytes # 1.4 K/CMM 1.0 - 5.5 04/02/[address] [facility] Basophils # 0.1 K/CMM 0.0 - 0.2 04/02/[address] [facility] Eosinophils # 0.1 K/CMM 0.0 - 0.5 04/02/[address] [facility] Segs 69.2 % 45.0 - 75.0 04/02/[address] [facility] Hct 47.1 % 36.0 - 48.0 04/02/[address] [facility] RDW 13.7 % 11.5 - 14.5 04/02/[address] [facility] MCV 93.3 fL 80.0 - 98.0 04/02/[address] [facility] MCH 32.0 pg 27.0 - 31.0 04/02/[address] [facility] MCHC 34.4 g/dL 32.0 - 36.0 04/02/[address] [facility] MPV 8.2 fL 7.4 - 10.4 04/02/[address] [facility] Platelet 199 K/CMM 133 - 450 04/02/[address] [facility] WBC 6.1 K/CMM 3.7 - 10.4 04/02/[address] [facility] RBC 5.05 M/CMM 4.20 - 5.40 04/02/[address] [facility] Hgb 16.2 g/dL 12.0 - 16.0 04/02/2018 [facility] Brain wo contrast CT Brain wo contrast CT CT HEAD WITHOUT CONTRAST: HISTORY: Altered mental status. PROCEDURE: Multiple axial images from the skull base to the skull vertex were obtained without contrast. Coronal and sagittal reconstructed images were performed. DLP: 1736.5 mGy-cm COMPARISON: 03/24/2018 FINDINGS: There is motion artifact. No acute hemorrhage, midline shift, extra- axial fluid collection, mass, or hydrocephalus is present. There is moderate atrophy. There are mild white matter hypodensities. No sulcal effacement to suggest acute infarct is present. The visualized mastoid air cells are clear. There is no air-fluid level in the visualized paranasal sinuses. Left maxillary mucous retention cyst is noted. Left sphenoid mucous retention cyst is noted. Distal internal carotid arterial calcifications are present IMPRESSION: 1. No acute intracranial abnormality. 2. Moderate atrophy and mild chronic microvascular ischemic changes. SL: [id number] 04/02/2018 - - Read by: Davey Morillo MD Dictated Date/time: 04/02/18 07:42 Electronically Signed by: Davey Morillo MD 04/02/18 07:44 FINAL [facility] URINE AND STOOL UA Urobilinogen <=1.0 mg/dL 0.1 - 1.0 04/01/2018 [facility] URINE AND STOOL UA Sq Epi None Seen 04/01/2018 [facility] URINE AND STOOL UA Spec Grav 1.015 <=1.030 04/01/2018 [facility] URINE AND STOOL UA Bili Negative *NA* (04/01/18 2:10 PM) Negative 04/01/2018 [facility] URINE AND STOOL UA Blood Small *ABN* (04/01/18 2:10 PM) Negative 04/01/2018 [facility] URINE AND STOOL UA pH 5.0 5.0 - 8.0 04/01/2018 [facility] URINE AND STOOL UA Protein Negative mg/dL Negative mg/dL 04/01/2018 [facility] URINE AND STOOL UA Nitrite Negative (04/01/18 2:10 PM) Negative 04/01/2018 [facility] URINE AND STOOL UA Leuk Est Negative (04/01/18 2:10 PM) Negative 04/01/2018 [facility] URINE AND STOOL UA Glucose Negative mg/dL Negative mg/dL 04/01/2018 [facility] URINE AND STOOL UA Ketones Trace mg/dL Negative mg/dL 04/01/2018 [facility] URINE AND STOOL UA Turbidity Clear (04/01/18 2:10 PM) Clear 04/01/2018 [facility] URINE AND STOOL UA Color Yellow *NA* (04/01/18 2:10 PM) Yellow 04/01/2018 [facility] URINE AND STOOL UA Hyal Cast 13 /LPF 0 - 2 04/01/2018 [facility] URINE AND STOOL UA Mucus Few /LPF None Seen /LPF 04/01/2018 [facility] URINE AND STOOL UA WBC 3 /HPF 0 - 5 04/01/2018 [facility] URINE AND STOOL UA RBC 3 /HPF 0 - 2 04/01/2018 [facility] URINE AND STOOL UA Bacteria Occasional /HPF None Seen /HPF 04/01/2018 [facility] CARDIAC ENZYMES CK MB Index 1.7 0.0 - 2.5 04/01/2018 [facility] CARDIAC ENZYMES Troponin-I null 0.00 - 0.40 04/01/2018 [facility] CARDIAC ENZYMES CK MB 1.9 ng/mL 0.5 - 3.6 04/01/2018 [facility] CARDIAC ENZYMES Total CK 110 unit/L 12 - 191 04/01/2018 [facility] CHEM PANEL eGFR 27 mL/min/1.73m2 04/01/2018 Result Comment: The eGFR is calculated using the CKD-EPI formula. In most young, healthy individuals the eGFR will be >90 mL/min/1.73m2. The eGFR declines with age. An eGFR of 60-89 may be normal in some populations, particularly the elderly, for whom the CKD-EPI formula has not been extensively validated. Use of the eGFR is not recommended in the following populations: Individuals with unstable creatinine concentrations, including patients and those with serious co-morbid conditions. Patients with extremes in muscle mass or diet. The data above are obtained from the National Kidney Disease Education Program (NKDEP) which additionally recommends that when the eGFR is used in patients with extremes of body mass index for purposes of drug dosing, the eGFR should be multiplied by the estimated BMI. [facility] CHEM PANEL Alk Phos 74 unit/L 39 - 136 04/01/2018 [facility] CHEM PANEL AST 26 unit/L 0 - 37 04/01/2018 [facility] CHEM PANEL AGAP 14.8 meq/L 10.0 - 20.0 04/01/2018 [facility] CHEM PANEL ALT 20 unit/L 0 - 65 04/01/2018 [facility] CHEM PANEL Albumin Lvl 4.4 g/dL 3.5 - 5.0 04/01/2018 [facility] CHEM PANEL Total Protein 8.5 g/dL 6.4 - 8.4 04/01/2018 [facility] CHEM PANEL A/G Ratio 1.1 0.7 - 1.6 04/01/2018 [facility] CHEM PANEL Globulin 4.1 g/dL 2.7 - 4.2 04/01/2018 [facility] CHEM PANEL B/C Ratio 11 6 - 25 04/01/2018 [facility] CHEM PANEL Bili Total 1.6 mg/dL 0.2 - 1.3 04/01/2018 [facility] CHEM PANEL Calcium Lvl 9.9 mg/dL 8.5 - 10.5 04/01/2018 [facility] CHEM PANEL CO2 24 meq/L 24 - 32 04/01/2018 [facility] CHEM PANEL Glucose Lvl 92 mg/dL 70 - 99 04/01/2018 [facility] CHEM PANEL Chloride Lvl 93 meq/L 95 - 109 04/01/2018 [facility] CHEM PANEL Sodium Lvl 127 meq/L 135 - 145 04/01/2018 [facility] CHEM PANEL BUN 18 mg/dL 7 - 22 04/01/2018 [facility] CHEM PANEL Potassium Lvl 4.8 meq/L 3.5 - 5.1 04/01/2018 [facility] CHEM PANEL Creatinine Lvl 1.71 mg/dL 0.50 - 1.40 04/01/2018 [facility] CHEM PANEL Lactic Acid Lvl 1.9 mMol/L 0.5 - 2.2 04/01/2018 [facility] Chest 1view DX Chest 1view DX PROCEDURE: CHEST SINGLE VIEW INDICATION: Confusion, delusions, hallucinations COMPARISON: 03/24/2018 FINDINGS: Pacemaker is stable. Cardiomegaly is stable. Tortuous aorta with prominent arch is unchanged. No acute consolidation or significant pleural fluid is present. No significant vascular congestion or interstitial edema is present. IMPRESSION: No acute cardiopulmonary process. SL: [id number] 04/01/2018 - - Read by: Davey Morillo MD Dictated Date/time: 04/01/18 13:03 Electronically Signed by: Davey Morillo MD 04/01/18 13:04 FINAL REPORT [facility] URINE AND STOOL UA WBC 25 /HPF 0 - 5 03/24/2018 [facility] URINE AND STOOL UA RBC 2 /HPF 0 - 2 03/24/2018 [facility] URINE AND STOOL UA Bacteria Occasional /HPF None Seen /HPF 03/24/2018 [facility] URINE AND STOOL UA Urobilinogen <=1.0 mg/dL 0.1 - 1.0 03/24/2018 [facility] URINE AND STOOL UA Nitrite Negative (03/24/18 4:45 PM) Negative 03/24/2018 [facility] URINE AND STOOL UA Blood Negative (03/24/18 4:45 PM) Negative 03/24/2018 [facility] URINE AND STOOL UA Sq Epi Occasional /LPF Few /LPF 03/24/2018 [facility] URINE AND STOOL UA Leuk Est Moderate *ABN* (03/24/18 4:45 PM) Negative 03/24/2018 [facility] URINE AND STOOL UA Color Yellow *NA* (03/24/18 4:45 PM) Yellow 03/24/2018 [facility] URINE AND STOOL UA Turbidity Clear (03/24/18 4:45 PM) Clear 03/24/2018 [facility] URINE AND STOOL UA Spec Grav 1.012 <=1.030 03/24/2018 [facility] URINE AND STOOL UA pH 6.0 5.0 - 8.0 03/24/2018 [facility] URINE AND STOOL UA Protein Negative mg/dL Negative mg/dL 03/24/2018 [facility] URINE AND STOOL UA Glucose Negative mg/dL Negative mg/dL 03/24/2018 [facility] URINE AND STOOL UA Ketones Negative mg/dL Negative mg/dL 03/24/2018 [facility] URINE AND STOOL UA Bili Negative *NA* (03/24/18 4:45 PM) Negative 03/24/2018 [facility] CARDIAC ENZYMES CK MB Index 1.5 0.0 - 2.5 03/24/2018 [facility] CARDIAC ENZYMES Troponin-I null 0.00 - 0.40 03/24/2018 [facility] CARDIAC ENZYMES CK MB 1.3 ng/mL 0.5 - 3.6 03/24/2018 [facility] CARDIAC ENZYMES Total CK 87 unit/L 12 - 191 03/24/2018 [facility] CHEM [facility] Ammonia 31.0 umol/L <=45.0 uMol/L 03/24/2018 [facility] CHEM [facility] eGFR 28 mL/min/1.73m2 03/24/2018 Result Comment: The eGFR is calculated using the CKD-EPI formula. In most young, healthy individuals the eGFR will be >90 mL/min/1.73m2. The eGFR declines with age. An eGFR of 60-89 may be normal in some populations, particularly the elderly, for whom the CKD-EPI formula has not been extensively validated. Use of the eGFR is not recommended in the following populations: Individuals with unstable creatinine concentrations, including patients and those with serious co-morbid conditions. Patients with extremes in muscle mass or diet. The data above are obtained from the National Kidney Disease Education Program (NKDEP) which additionally recommends that when the eGFR is used in patients with extremes of body mass index for purposes of drug dosing, the eGFR should be multiplied by the estimated BMI. [facility] CHEM PANEL BUN 23 mg/dL 7 - 22 03/24/2018 [facility] CHEM PANEL Glucose Lvl 93 mg/dL 70 - 99 03/24/2018 [facility] CHEM PANEL Potassium Lvl 4.8 meq/L 3.5 - 5.1 03/24/2018 [facility] CHEM PANEL Alk Phos 78 unit/L 39 - 136 03/24/2018 [facility] CHEM PANEL AST 20 unit/L 0 - 37 03/24/2018 [facility] CHEM PANEL Creatinine Lvl 1.66 mg/dL 0.50 - 1.40 03/24/2018 [facility] CHEM PANEL Sodium Lvl 136 meq/L 135 - 145 03/24/2018 [facility] CHEM PANEL Chloride Lvl 101 meq/L 95 - 109 03/24/2018 [facility] CHEM PANEL CO2 26 meq/L 24 - 32 03/24/2018 [facility] CHEM PANEL Bili Total 0.8 mg/dL 0.2 - 1.3 03/24/2018 [facility] CHEM PANEL AGAP 13.8 meq/L 10.0 - 20.0 03/24/2018 [facility] CHEM PANEL B/C Ratio 14 6 - 25 03/24/2018 [facility] CHEM PANEL A/G Ratio 1.0 0.7 - 1.6 03/24/2018 [facility] CHEM PANEL Globulin 4.0 g/dL 2.7 - 4.2 03/24/2018 [facility] CHEM PANEL Albumin Lvl 4.0 g/dL 3.5 - 5.0 03/24/2018 [facility] CHEM PANEL Total Protein 8.0 g/dL 6.4 - 8.4 03/24/2018 [facility] CHEM PANEL Calcium Lvl 9.2 mg/dL 8.5 - 10.5 03/24/2018 [facility] CHEM PANEL ALT 17 unit/L 0 - 65 03/24/2018 [facility] HEMATOLOGY Basophils # 0.1 K/CMM 0.0 - 0.2 03/24/2018 [facility] HEMATOLOGY Eosinophils 0.8 % 0.0 - 4.0 03/24/2018 [facility] HEMATOLOGY Monocytes 7.2 % 2.0 - 12.0 03/24/2018 [facility] HEMATOLOGY Basophils 1.3 % 0.0 - 1.0 03/24/2018 [facility] HEMATOLOGY Segs 65.2 % 45.0 - 75.0 03/24/2018 [facility] HEMATOLOGY Lymphocytes 25.5 % 20.0 - 40.0 03/24/2018 [facility] HEMATOLOGY Eosinophils # 0.1 K/CMM 0.0 - 0.5 03/24/2018 [facility] HEMATOLOGY Segs-Bands # 4.9 K/CMM 1.5 - 8.1 03/24/2018 [facility] HEMATOLOGY Monocytes # 0.5 K/CMM 0.0 - 0.8 03/24/[address] [facility] Lymphocytes # 1.9 K/CMM 1.0 - 5.5 03/24/[address] [facility] MPV 8.0 fL 7.4 - 10.4 03/24/[address] [facility] RDW 13.7 % 11.5 - 14.5 03/24/[address] [facility] Platelet 226 K/CMM 133 - 450 03/24/[address] [facility] Hgb 16.5 g/dL 12.0 - 16.0 03/24/[address] [facility] RBC 5.23 M/CMM 4.20 - 5.40 03/24/[address] [facility] WBC 7.5 K/CMM 3.7 - 10.4 03/24/[address] [facility] MCH 31.6 pg 27.0 - 31.0 03/24/[address] [facility] MCHC 33.9 g/dL 32.0 - 36.0 03/24/[address] [facility] Hct 48.7 % 36.0 - 48.0 03/24/[address] [facility] MCV 93.3 fL 80.0 - 98.0 03/24/2018 [facility] Brain wo contrast CT Brain wo contrast CT Study: Brain wo contrast CT 03/24/2018 2:47 PM CDT Ordering Physician: Eliceo Cross Clinical Indication: - AMS, hx CVA. 87-year-old with urinary tract infection. Comparison: June 02, 2014 TECHNIQUE: CT images are obtained from the foramen magnum to the vertex on a multidetector CT. Sagittal and coronal reformats are acquired. CT radiation dose DLP: 1434 mGy-cm. FINDINGS: Ventricles, sulci and basal cisterns are within normal limits for age. The shaver- white junction is intact. Mild patchy decreased density is present in the white matter of the cerebral hemispheres, likely reflecting chronic small vessel ischemic disease. Small cortical-based area of encephalomalacia is present in the left posterior, lateral, inferior parieto-occipital region, associated with ex vacuo dilatation of the left occipital horn. Old lacunar infarcts are present in the left caudate head and left caudate body. Another is present in the anterior limb right internal capsule. Heavy bilateral cavernous ICA and intradural vertebral artery calcifications are seen. There is no evidence for intracranial mass, mass effect or extra-axial fluid collection. There is no evidence for intracranial hemorrhage. The skull is intact. A 1.5 cm retention cyst is present in the left maxillary antrum. A 1 cm retention cyst is present in the left sphenoid sinus. Mastoid air cells are clear. The patient has undergone previous right cataract surgery. There are lucencies at the apices of multiple maxillary teeth, compatible with advanced dental caries. IMPRESSION: Chronic ischemic changes are present as described, stable as compared to the study from 2013. No acute intracranial pathology is seen. Dental caries. Mild chronic left maxillary sinusitis. SL: [id number] 03/24/2018 - - Read by: Ángela Cesar MD Dictated Date/time: 03/24/18 15:28 Electronically Signed by: Ángela Cesar MD 03/24/18 15:33 FINAL REPORT [facility] 1view DX Chest 1view DX Patient Name: GRAZYNA WREN : 1930 Age: 87 years, Female MR: [id number] Study: Chest 1view DX 03/24/2018 2:47 PM CDT Examination: Chest, portable. Indication: Altered mental status Clinical information: - AMS. Comparison: Portable chest 04/17/2017 Findings: Lines/tubes: Left chest cardiac device with lead projecting over the expected region of the right ventricle. Heart: Normal cardiac silhouette. Vessels: The pulmonary vasculature is within normal limits. Atherosclerotic calcifications of the aortic arch. Mediastinum: No mediastinal or hilar mass or lymphadenopathy. Lungs: No parenchymal mass. No focal consolidation. Pleura: No pleural effusion. No pneumothorax. Soft tissues: Normal. No axillary mass or lymphadenopathy. Bones: No acute osseous abnormality. Degenerative changes of the thoracic spine. IMPRESSION: No acute radiographic abnormality. SL: [id number] 03/24/2018 - - Read by: Meir Arrieta MD Dictated Date/time: 03/24/18 15:41 Electronically Signed by: Meir Arrieta MD 03/24/18 15:[address] [facility] Hgb 16.4 g/dL 12.0 - 16.0 04/21/[address] [facility] Hct 48.1 % 36.0 - 48.0 04/21/[address] [facility] MCV 93.8 fL 80.0 - 98.0 04/21/[address] [facility] MCH 32.0 pg 27.0 - 31.0 04/21/2017 [facility] HEMATOLOGY MCHC 34.1 g/dL 32.0 - 36.0 04/21/2017 [facility] HEMATOLOGY Platelet 189 K/CMM 133 - 450 04/21/2017 [facility] HEMATOLOGY RDW 14.1 % 11.5 - 14.5 04/21/2017 [facility] HEMATOLOGY MPV 8.6 fL 7.4 - 10.4 04/21/2017 [facility] HEMATOLOGY WBC 6.3 K/CMM 3.7 - 10.4 04/21/2017 [facility] HEMATOLOGY RBC 5.13 M/CMM 4.20 - 5.40 04/21/2017 [facility] CHEM PANEL Glucose Lvl 102 mg/dL 70 - 99 04/20/2017 [facility] CHEM PANEL BUN 21 mg/dL 7 - 22 04/20/2017 [facility] CHEM PANEL Creatinine Lvl 1.20 mg/dL 0.50 - 1.40 04/20/2017 [facility] CHEM PANEL Sodium Lvl 137 meq/L 135 - 145 04/20/2017 [facility] CHEM PANEL Calcium Lvl 8.6 mg/dL 8.5 - 10.5 04/20/2017 [facility] CHEM PANEL AGAP 14.2 meq/L 10.0 - 20.0 04/20/2017 [facility] CHEM PANEL Potassium Lvl 4.2 meq/L 3.5 - 5.1 04/20/2017 [facility] CHEM PANEL Chloride Lvl 96 meq/L 95 - 109 04/20/2017 [facility] CHEM PANEL CO2 31 meq/L 24 - 32 04/20/2017 [facility] CHEM PANEL eGFR 42 mL/min/1.73m2 04/20/2017 Result Comment: The eGFR is calculated using the CKD-EPI formula. In most young, healthy individuals the eGFR will be >90 mL/min/1.73m2. The eGFR declines with age. An eGFR of 60-89 may be normal in some populations, particularly the elderly, for whom the CKD-EPI formula has not been extensively validated. Use of the eGFR is not recommended in the following populations: Individuals with unstable creatinine concentrations, including patients and those with serious co-morbid conditions. Patients with extremes in muscle mass or diet. The data above are obtained from the National Kidney Disease Education Program (NKDEP) which additionally recommends that when the eGFR is used in patients with extremes of body mass index for purposes of drug dosing, the eGFR should be multiplied by the estimated BMI. [facility] CHEM PANEL Phosphorus 2.3 mg/dL 2.5 - 4.5 04/19/2017 [facility] CHEM PANEL Calcium Lvl 8.6 mg/dL 8.5 - 10.5 04/19/2017 [facility] CHEM PANEL Albumin Lvl 3.0 g/dL 3.5 - 5.0 04/19/2017 [facility] CHEM PANEL AGAP 11.1 meq/L 10.0 - 20.0 04/19/2017 [facility] CHEM PANEL eGFR 42 mL/min/1.73m2 04/19/2017 Result Comment: The eGFR is calculated using the CKD-EPI formula. In most young, healthy individuals the eGFR will be >90 mL/min/1.73m2. The eGFR declines with age. An eGFR of 60-89 may be normal in some populations, particularly the elderly, for whom the CKD-EPI formula has not been extensively validated. Use of the eGFR is not recommended in the following populations: Individuals with unstable creatinine concentrations, including patients and those with serious co-morbid conditions. Patients with extremes in muscle mass or diet. The data above are obtained from the National Kidney Disease Education Program (NKDEP) which additionally recommends that when the eGFR is used in patients with extremes of body mass index for purposes of drug dosing, the eGFR should be multiplied by the estimated BMI. [facility] CHEM PANEL Creatinine Lvl 1.20 mg/dL 0.50 - 1.40 04/19/2017 [facility] CHEM PANEL Potassium Lvl 4.1 meq/L 3.5 - 5.1 04/19/2017 [facility] CHEM PANEL Sodium Lvl 137 meq/L 135 - 145 04/19/2017 [facility] CHEM PANEL CO2 29 meq/L 24 - 32 04/19/2017 [facility] CHEM PANEL Chloride Lvl 101 meq/L 95 - 109 04/19/2017 [facility] CHEM PANEL BUN 21 mg/dL 7 - 22 04/19/2017 [facility] CHEM PANEL Glucose Lvl 94 mg/dL 70 - 99 04/19/2017 [facility] ELECTROLYTES AGAP 11.1 meq/L 10.0 - 20.0 04/19/2017 [facility] ELECTROLYTES Chloride Lvl 101 meq/L 95 - 109 04/19/2017 [facility] ELECTROLYTES CO2 29 meq/L 24 - 32 04/19/2017 [facility] ELECTROLYTES Calcium Lvl 8.6 mg/dL 8.5 - 10.5 04/19/2017 [facility] ELECTROLYTES Glucose Lvl 94 mg/dL 70 - 99 04/19/2017 [facility] ELECTROLYTES BUN 21 mg/dL 7 - 22 04/19/2017 [facility] ELECTROLYTES Creatinine Lvl 1.20 mg/dL 0.50 - 1.40 04/19/2017 [facility] ELECTROLYTES Sodium Lvl 137 meq/L 135 - 145 04/19/2017 [facility] ELECTROLYTES Potassium Lvl 4.1 meq/L 3.5 - 5.1 04/19/2017 [facility] ELECTROLYTES eGFR 42 mL/min/1.73m2 04/19/2017 Result Comment: The eGFR is calculated using the CKD-EPI formula. In most young, healthy individuals the eGFR will be >90 mL/min/1.73m2. The eGFR declines with age. An eGFR of 60-89 may be normal in some populations, particularly the elderly, for whom the CKD-EPI formula has not been extensively validated. Use of the eGFR is not recommended in the following populations: Individuals with unstable creatinine concentrations, including patients and those with serious co-morbid conditions. Patients with extremes in muscle mass or diet. The data above are obtained from the National Kidney Disease Education Program (NKDEP) which additionally recommends that when the eGFR is used in patients with extremes of body mass index for purposes of drug dosing, the eGFR should be multiplied by the estimated BMI. [facility] CHEM PANEL Bili Total 2.3 mg/dL 0.2 - 1.3 04/18/2017 [facility] CHEM PANEL Bili Direct 0.3 mg/dL 0.0 - 0.3 04/18/2017 [facility] CHEM PANEL Globulin 4.3 g/dL 2.7 - 4.2 04/18/2017 [facility] CHEM PANEL Alk Phos 79 unit/L 39 - 136 04/18/2017 [facility] CHEM PANEL Albumin Lvl 3.8 g/dL 3.5 - 5.0 04/18/2017 [facility] CHEM PANEL AST 30 unit/L 0 - 37 04/18/2017 [facility] CHEM PANEL Total Protein 8.1 g/dL 6.4 - 8.4 04/18/2017 [facility] CHEM PANEL Bili Indirect 2.0 mg/dL 0.0 - 1.0 04/18/2017 [facility] CHEM PANEL A/G Ratio 0.9 0.7 - 1.6 04/18/2017 [facility] CHEM PANEL ALT 45 unit/L 0 - 65 04/18/2017 [facility] CARDIAC ENZYMES Troponin-I 0.04 ng/mL 0.00 - 0.40 04/18/2017 [facility] CARDIAC ENZYMES Troponin-I 0.03 ng/mL 0.00 - 0.40 04/18/2017 [facility] CARDIAC ENZYMES Total CK 112 unit/L 12 - 191 04/18/2017 [facility] CARDIAC ENZYMES Total CK 110 unit/L 12 - 191 04/18/2017 [facility] CARDIAC ENZYMES CK MB Index 2.6 0.0 - 2.5 04/18/2017 [facility] CARDIAC ENZYMES CK MB 2.9 ng/mL 0.5 - 3.6 04/18/2017 [facility] CARDIAC ENZYMES CK MB Index 2.8 0.0 - 2.5 04/18/2017 [facility] CARDIAC ENZYMES CK MB 3.1 ng/mL 0.5 - 3.6 04/18/2017 [facility] CHEM PANEL Uric Acid 6.0 mg/dL 2.5 - 7.0 04/18/2017 [facility] CHEM PANEL Vitamin D, 25-OH, Total 10.7 ng/mL 30.0 - 100.0 04/18/2017 [facility] CHEM PANEL Phosphorus 3.1 mg/dL 2.5 - 4.5 04/18/2017 [facility] CHEM PANEL Magnesium Lvl 2.1 mg/dL 1.8 - 2.4 04/18/2017 [facility] IMMUNOLOGY Prealbumin 19.6 mg/dL 18.0 - 45.0 04/18/2017 [facility] LIPIDS VLDL 12 04/18/2017 [facility] LIPIDS LDL (Calculated) 55 mg/dL <=99 mg/dL 04/18/2017 [facility] LIPIDS Trig 59 mg/dL <=149 mg/dL 04/18/2017 [facility] LIPIDS Chol 129 mg/dL <=199 mg/dL 04/18/2017 [facility] LIPIDS HDL 62 mg/dL >=61 mg/dL 04/18/2017 [facility] LIPIDS CHD Risk 2.08 3.90 - 5.80 04/18/2017 [facility] SPECIAL CHEMISTRY Hgb A1C 5.6 % <=5.6 % 04/18/2017 [facility] URINE AND STOOL UA Color Ltyellow 04/18/2017 [facility] URINE AND STOOL UA Urobilinogen <=1.0 mg/dL 0.1 - 1.0 04/18/2017 [facility] URINE AND STOOL UA RBC 5 /HPF 0 - 2 04/18/2017 [facility] URINE AND STOOL UA Bacteria Occasional /HPF None Seen /HPF 04/18/2017 [facility] URINE AND STOOL UA Leuk Est Moderate *ABN* (04/17/17 8:28 PM) Negative 04/18/2017 [facility] URINE AND STOOL UA Sq Epi Occasional /LPF Few /LPF 04/18/2017 [facility] URINE AND STOOL UA WBC 22 /HPF 0 - 5 04/18/2017 [facility] URINE AND STOOL UA Blood Small *ABN* (04/17/17 8:28 PM) Negative 04/18/2017 [facility] URINE AND STOOL UA Nitrite Negative (04/17/17 8:28 PM) Negative 04/18/2017 [facility] URINE AND STOOL UA Ketones Negative mg/dL Negative mg/dL 04/18/2017 [facility] URINE AND STOOL UA Bili Negative *NA* (04/17/17 8:28 PM) Negative 04/18/2017 [facility] URINE AND STOOL UA pH 7.0 5.0 - 8.0 04/18/2017 [facility] URINE AND STOOL UA Protein 30 mg/dL Negative mg/dL 04/18/2017 [facility] URINE AND STOOL UA Glucose Negative mg/dL Negative mg/dL 04/18/2017 [facility] URINE AND STOOL UA Turbidity Clear (04/17/17 8:28 PM) Clear 04/18/2017 [facility] URINE AND STOOL UA Spec Grav 1.008 <=1.030 04/18/2017 [facility] CARDIAC ENZYMES Troponin-I 0.03 ng/mL 0.00 - 0.40 04/18/2017 [facility] CARDIAC ENZYMES CK MB 2.4 ng/mL 0.5 - 3.6 04/18/2017 [facility] CARDIAC ENZYMES BNP 1325 pg/mL <=100 pg/mL 04/18/2017 [facility] CARDIAC ENZYMES Total CK 162 unit/L 12 - 191 04/18/2017 [facility] CARDIAC ENZYMES CK MB Index 1.5 0.0 - 2.5 04/18/2017 [facility] CHEM PANEL B/C Ratio 15 6 - 25 04/18/2017 [facility] CHEM PANEL Total Protein 8.7 g/dL 6.4 - 8.4 04/18/2017 [facility] CHEM PANEL Albumin Lvl 3.9 g/dL 3.5 - 5.0 04/18/2017 [facility] CHEM PANEL Globulin 4.8 g/dL 2.7 - 4.2 04/18/2017 [facility] CHEM PANEL A/G Ratio 0.8 0.7 - 1.6 04/18/2017 [facility] CHEM PANEL AST 57 unit/L 0 - 37 04/18/2017 [facility] CHEM PANEL ALT 59 unit/L 0 - 65 04/18/2017 [facility] CHEM PANEL Bili Total 1.9 mg/dL 0.2 - 1.3 04/18/2017 [facility] CHEM PANEL Alk Phos 88 unit/L 39 - 136 04/18/2017 [facility] HEMATOLOGY PTT 30.7 s 22.9 - 35.8 04/18/2017 [facility] HEMATOLOGY PT 14.9 s 12.0 - 14.7 04/18/2017 [facility] HEMATOLOGY INR 1.15 0.85 - 1.17 04/18/[address] [facility] Platelet 195 K/CMM 133 - 450 04/18/[address] [facility] RDW 14.4 % 11.5 - 14.5 04/18/[address] [facility] MCHC 33.4 g/dL 32.0 - 36.0 04/18/[address] [facility] MCH 31.5 pg 27.0 - 31.0 04/18/[address] [facility] MPV 9.1 fL 7.4 - 10.4 04/18/[address] [facility] RBC 5.22 M/CMM 4.20 - 5.40 04/18/[address] [facility] WBC 11.4 K/CMM 3.7 - 10.4 04/18/[address] [facility] Hgb 16.5 g/dL 12.0 - 16.0 04/18/[address] [facility] MCV 94.5 fL 80.0 - 98.0 04/18/[address] [facility] Hct 49.3 % 36.0 - 48.0 04/18/[address] [facility] Monocytes # 0.5 K/CMM 0.0 - 0.8 04/18/[address] [facility] Segs 85.3 % 45.0 - 75.0 04/18/[address] [facility] Lymphocytes 10.0 % 20.0 - 40.0 04/18/[address] [facility] Monocytes 4.2 % 2.0 - 12.0 04/18/[address] [facility] Basophils 0.4 % 0.0 - 1.0 04/18/[address] [facility] Lymphocytes # 1.1 K/CMM 1.0 - 5.5 04/18/[address] [facility] Segs-Bands # 9.7 K/CMM 1.5 - 8.1 04/18/2017 [facility] HEMATOLOGY Eosinophils 0.1 % 0.0 - 4.0 04/18/2017 [facility] Chest Pulmonary Embolism CTA Chest Pulmonary Embolism CTA CTA PULMONARY ARTERIES AND ROUTINE CT CHEST HISTORY: ; CT DLP: 963.39mGycm, -- 100CC OMNI 350 - SOB---from home, started with sob at 0400 and increased work of breathing. pt states sob while sitting. PMHX pacemaker, CHF, CVA; TECHNIQUE: Thin collimation axial images of the pulmonary arteries and routine CT chest with IV contrast. Coronal and sagittal reformatted images were utilized. 3-D reconstructions were obtained. COMPARISON: Chest radiography dated 04/17/2017 FINDINGS: No pulmonary embolism. Mild patchy groundglass opacity throughout the lungs suggestive of mild pulmonary edema. Pneumonia considered less likely. Small bilateral layering pleural effusions. No suspicious pulmonary nodule. No pneumothorax. No mediastinal mass or fluid collection. Mild AP window mediastinal adenopathy measuring 10 x 16 mm axial cross section. Moderate subcarinal adenopathy measuring 23 x 33 mm in axial cross section. No hilar adenopathy. Heart size within normal limits. Single lead transvenous cardiac pacemaker in place in expected positioning. No pericardial effusion. Visualized portion of the upper abdominal contents demonstrates reflux of contrast into the hepatic veins compatible with right heart dysfunction. No acute osseous abnormality is seen. Chronic compression fracture of a lower thoracic vertebral body is noted. IMPRESSION: 1. No pulmonary embolism. 2. Mild diffuse patchy ground glass opacity throughout the lungs most suggestive of mild pulmonary edema. Pneumonia considered less likely. 3. Small bilateral layering pleural effusions. 4. Heart size within normal limits but there is a transvenous cardiac pacemaker and there is reflux of contrast in the hepatic veins compatible with right heart dysfunction. 5. Moderate subcarinal mediastinal adenopathy, nonspecific. SL: [id number] 04/17/2017 - - Read by: Bao Edwards MD Dictated Date/time: 04/17/17 21:38 Electronically Signed by: Bao Edwards MD 04/17/17 21:43 FINAL REPORT [facility] Chest 1view DX Chest 1view DX Study: Chest 1view DX 04/17/2017 7:03 PM CDT Patient Name: GRAZYNA WREN MR: [id number] : 1930; Age: 86 years y/o Female Ordering Physician: Ginette Castillo MD Clinical Indication: Shortness of breath. Comparison: 06/28/2014. FINDINGS LUNGS: The lungs remain hyperinflated. Increasing prominence of the central pulmonary vascularity and pulmonary interstitium is seen greater than expected for artifact from image technique suggesting findings are related to mild congestive heart failure. Additionally, small bilateral pleural effusions are noted. No pneumothorax. HEART AND MEDIASTINUM: Stable mildly enlarged heart with a single lead left pacemaker. LINES: None. OSSEOUS STRUCTURES: No fracture, dislocation, or suspicious focal osseous lesion. OTHER: None. IMPRESSION: 1. Mild cardiomegaly status post pacemaker with interval mild congestive heart failure suspected. SL: SAUL- 04/17/2017 - - Read by: Maximilian Hernandez MD Dictated Date/time: 04/17/17 19:33 Electronically Signed by: Maximilian Hernandez MD 04/17/17 19:34 FINAL REPORT [facility] Spine lumbar series DX Spine lumbar series DX EXAMINATION: Lumbar spine series 07/21/2016 DISCUSSION: The right to left direction appears to be switched between the 4th and 5th image as there is a surgical clip in the right upper quadrant in one and in the left upper quadrant in the other. There is generalized osteopenia. Moderate S-shaped rotoscoliosis of the lumbar spine spine is noted with approximately 16 degrees curvature centered at L3-L4 with possible lateral subluxation of L4 on L5. There is approximately 3 mm, grade 1 anterior listhesis of L4-L5. There is a moderate compression deformity of T11 which is partially visualized. Moderate degenerative changes are most notable in the lower lumbar spine. No evidence of pars defect on the oblique views. The pedicles and transverse processes are intact. There are moderate vascular calcifications. If clinical concern persists, consider further evaluation with CT or MRI of the lumbar spine. IMPRESSION: 1. Moderate compression deformity of the T11 vertebral body is partially visualized. This is a time indeterminate fracture. Correlate for tenderness in this region. 2. Moderate rotatory scoliosis and degenerative changes with grade 1, L4-L5 anterior listhesis. 07/21/2016 - - Read by: Clifton Lott MD Dictated Date/time: 07/21/16 16:09 Electronically Signed by: Clifton Lott MD 07/21/16 16:20 FINAL REPORT [facility] CARDIAC ENZYMES BNP 393 pg/mL <=100 pg/mL 07/03/2014 8Interpretive Data: Elevated results are in line with increasing severity of congestive heart failure. Minor elevations between 100 and 300 may be seen with Myocardial Ischemia, Sodium retaining drugs, and compensated/treated heart failure. [facility] ELECTROLYTES AGAP 11.3 meq/L 10.0 - 20.0 07/03/2014 [facility] ELECTROLYTES eGFR 47 mL/min/1.73m2 07/03/2014 1Result Comment: The eGFR is calculated using the CKD-EPI formula. In most young, healthy individuals the eGFR will be >90 mL/min/1.73m2. The eGFR declines with age. An eGFR of 60-89 may be normal in some populations, particularly the elderly, for whom the CKD-EPI formula has not been extensively validated. Use of the eGFR is not recommended in the following populations: Individuals with unstable creatinine concentrations, including patients and those with serious co-morbid conditions. Patients with extremes in muscle mass or diet. The data above are obtained from the National Kidney Disease Education Program (NKDEP) which additionally recommends that when the eGFR is used in patients with extremes of body mass index for purposes of drug dosing, the eGFR should be multiplied by the estimated BMI. [facility] ELECTROLYTES Glucose Lvl 100 mg/dL 70 - 99 07/03/2014 4Interpretive Data: Adult reference range values reflect the clinical guidelines of the [place] [employer]. [facility] ELECTROLYTES BUN 15 mg/dL 7 - 22 07/03/2014 [facility] ELECTROLYTES Creatinine Lvl 1.1 mg/dL 0.5 - 1.4 07/03/2014 [facility] ELECTROLYTES Calcium Lvl 9.3 mg/dL 8.5 - 10.5 07/03/2014 [facility] ELECTROLYTES Sodium Lvl 140 meq/L 135 - 145 07/03/2014 [facility] ELECTROLYTES Potassium Lvl 3.3 meq/L 3.5 - 5.1 07/03/2014 [facility] ELECTROLYTES CO2 32 meq/L 24 - 32 07/03/2014 [facility] ELECTROLYTES Chloride Lvl 100 meq/L 95 - 109 07/03/2014 [facility] ELECTROLYTES Sodium Lvl 139 meq/L 135 - 145 07/02/2014 [facility] ELECTROLYTES Creatinine Lvl 1.1 mg/dL 0.5 - 1.4 07/02/2014 [facility] ELECTROLYTES BUN 16 mg/dL 7 - 22 07/02/2014 [facility] ELECTROLYTES Glucose Lvl 97 mg/dL 70 - 99 07/02/2014 5Interpretive Data: Adult reference range values reflect the clinical guidelines of the [place] [employer]. [facility] ELECTROLYTES Calcium Lvl 9.2 mg/dL 8.5 - 10.5 07/02/2014 [facility] ELECTROLYTES Potassium Lvl 3.3 meq/L 3.5 - 5.1 07/02/2014 [facility] ELECTROLYTES CO2 30 meq/L 24 - 32 07/02/2014 [facility] ELECTROLYTES Chloride Lvl 102 meq/L 95 - 109 07/02/2014 [facility] ELECTROLYTES AGAP 10.3 meq/L 10.0 - 20.0 07/02/2014 [facility] ELECTROLYTES eGFR 47 mL/min/1.73m2 07/02/2014 2Result Comment: The eGFR is calculated using the CKD-EPI formula. In most young, healthy individuals the eGFR will be >90 mL/min/1.73m2. The eGFR declines with age. An eGFR of 60-89 may be normal in some populations, particularly the elderly, for whom the CKD-EPI formula has not been extensively validated. Use of the eGFR is not recommended in the following populations: Individuals with unstable creatinine concentrations, including patients and those with serious co-morbid conditions. Patients with extremes in muscle mass or diet. The data above are obtained from the National Kidney Disease Education Program (NKDEP) which additionally recommends that when the eGFR is used in patients with extremes of body mass index for purposes of drug dosing, the eGFR should be multiplied by the estimated BMI. [facility] CARDIAC ENZYMES BNP 427 pg/mL <=100 pg/mL 06/29/2014 9Interpretive Data: Elevated results are in line with increasing severity of congestive heart failure. Minor elevations between 100 and 300 may be seen with Myocardial Ischemia, Sodium retaining drugs, and compensated/treated heart failure. [facility] ELECTROLYTES AGAP 10.9 meq/L 10.0 - 20.0 06/29/2014 [facility] ELECTROLYTES eGFR 53 mL/min/1.73m2 06/29/2014 3Result Comment: The eGFR is calculated using the CKD-EPI formula. In most young, healthy individuals the eGFR will be >90 mL/min/1.73m2. The eGFR declines with age. An eGFR of 60-89 may be normal in some populations, particularly the elderly, for whom the CKD-EPI formula has not been extensively validated. Use of the eGFR is not recommended in the following populations: Individuals with unstable creatinine concentrations, including patients and those with serious co-morbid conditions. Patients with extremes in muscle mass or diet. The data above are obtained from the National Kidney Disease Education Program (NKDEP) which additionally recommends that when the eGFR is used in patients with extremes of body mass index for purposes of drug dosing, the eGFR should be multiplied by the estimated BMI. [facility] ELECTROLYTES Potassium Lvl 3.9 meq/L 3.5 - 5.1 06/29/2014 [facility] ELECTROLYTES Calcium Lvl 9.2 mg/dL 8.5 - 10.5 06/29/2014 [facility] ELECTROLYTES Chloride Lvl 102 meq/L 95 - 109 06/29/2014 [facility] ELECTROLYTES CO2 33 meq/L 24 - 32 06/29/2014 [facility] ELECTROLYTES Sodium Lvl 142 meq/L 135 - 145 06/29/2014 [facility] ELECTROLYTES Creatinine Lvl 1.0 mg/dL 0.5 - 1.4 06/29/2014 [facility] ELECTROLYTES BUN 14 mg/dL 7 - 22 06/29/2014 [facility] ELECTROLYTES Glucose Lvl 96 mg/dL 70 - 99 06/29/2014 6Interpretive Data: Adult reference range values reflect the clinical guidelines of the [place] [employer]. [facility] HEMATOLOGY Segs 55.3 % 45.0 - 75.0 06/29/2014 [facility] HEMATOLOGY Basophils 1.2 % 0.0 - 1.0 06/29/[address] [facility] Lymphocytes 33.2 % 20.0 - 40.0 06/29/2014 [facility] HEMATOLOGY Eosinophils 4.6 % 0.0 - 4.0 06/29/2014 [facility] HEMATOLOGY Monocytes 5.7 % 2.0 - 12.0 06/29/2014 [facility] HEMATOLOGY Monocytes # 0.3 K/CMM 0.0 - 0.8 06/29/2014 [facility] HEMATOLOGY Segs-Bands # 2.9 K/CMM 1.5 - 8.1 06/29/2014 [facility] HEMATOLOGY Lymphocytes # 1.7 K/CMM 1.0 - 5.5 06/29/2014 [facility] HEMATOLOGY Basophils # 0.1 K/CMM 0.0 - 0.2 06/29/2014 [facility] HEMATOLOGY Eosinophils # 0.2 K/CMM 0.0 - 0.5 06/29/[address] [facility] RDW 15.4 % 11.5 - 14.5 06/29/[address] [facility] Platelet 219 K/CMM 133 - 450 06/29/[address] [facility] MCH 30.1 pg 27.0 - 31.0 06/29/[address] [facility] MCHC 33.0 g/dL 32.0 - 36.0 06/29/[address] [facility] MPV 8.5 fL 7.4 - 10.4 06/29/[address] [facility] Hct 44.0 % 36.0 - 48.0 06/29/[address] [facility] RBC 4.82 M/CMM 4.20 - 5.40 06/29/[address] [facility] Hgb 14.5 g/dL 12.0 - 16.0 06/29/[address] [facility] WBC 5.3 K/CMM 3.7 - 10.4 06/29/[address] [facility] MCV 91.3 fL 80.0 - 98.0 06/29/2014 [facility] IMMUNOLOGY Prealbumin 18.3 mg/dL 18.0 - 45.0 06/29/2014 [facility] Chest 1view Chest 1view Examination: Chest x-ray, single view History: Abnormal chest sounds Comparison: 06/20/2014 Findings: Left-sided pacemaking device is stable. Cardiac silhouette is normal in size. Small left pleural effusion is noted and decreased since prior exam. There is no pneumothorax. The osseous structures are without focal abnormality. IMPRESSION: Small left pleural effusion. SL: 13 06/28/2014 - - Read by: Jenaro Carvajal MD Dictated Date/time: 06/28/14 11:40 Electronically Signed by: Jenaro Carvajal MD 06/28/14 11:[address] [facility] MPV 8.3 fL 7.4 - 10.4 06/27/[address] [facility] Platelet 212 K/CMM 133 - 450 06/27/[address] [facility] RDW 15.1 % 11.5 - 14.5 06/27/[address] [facility] MCHC 33.3 g/dL 32.0 - 36.0 06/27/[address] [facility] MCH 30.5 pg 27.0 - 31.0 06/27/[address] [facility] MCV 91.5 fL 80.0 - 98.0 06/27/2014 [facility] HEMATOLOGY Hct 44.0 % 36.0 - 48.0 06/27/[address] [facility] Hgb 14.6 g/dL 12.0 - 16.0 06/27/[address] [facility] RBC 4.80 M/CMM 4.20 - 5.40 06/27/[address] [facility] WBC 5.1 K/CMM 3.7 - 10.4 06/27/2014 [facility] HEMATOLOGY Segs-Bands # 2.9 K/CMM 1.5 - 8.1 06/27/2014 [facility] HEMATOLOGY Basophils 1.1 % 0.0 - 1.0 06/27/2014 [facility] HEMATOLOGY Monocytes 6.4 % 2.0 - 12.0 06/27/2014 [facility] HEMATOLOGY Eosinophils 4.7 % 0.0 - 4.0 06/27/[address] [facility] Lymphocytes 30.3 % 20.0 - 40.0 06/27/[address] [facility] Segs 57.5 % 45.0 - 75.0 06/27/[address] [facility] Basophils # 0.1 K/CMM 0.0 - 0.2 06/27/2014 [facility] HEMATOLOGY Eosinophils # 0.2 K/CMM 0.0 - 0.5 06/27/[address] [facility] Lymphocytes # 1.5 K/CMM 1.0 - 5.5 06/27/[address] [facility] Monocytes # 0.3 K/CMM 0.0 - 0.8 06/27/[address] [facility] Platelet 228 K/CMM 133 - 450 06/24/[address] [facility] Hct 44.3 % 36.0 - 48.0 06/24/[address] [facility] Hgb 14.9 g/dL 12.0 - 16.0 06/24/[address] [facility] MCHC 33.6 g/dL 32.0 - 36.0 06/24/[address] [facility] MCH 30.8 pg 27.0 - 31.0 06/24/[address] [facility] MCV 91.5 fL 80.0 - 98.0 06/24/[address] [facility] RDW 14.9 % 11.5 - 14.5 06/24/[address] [facility] MPV 8.2 fL 7.4 - 10.4 06/24/[address] [facility] RBC 4.85 M/CMM 4.20 - 5.40 06/24/2014 [facility] HEMATOLOGY WBC 5.5 K/CMM 3.7 - 10.4 06/24/2014 [facility] HEMATOLOGY Lymphocytes # 1.6 K/CMM 1.0 - 5.5 06/24/2014 [facility] HEMATOLOGY Eosinophils # 0.2 K/CMM 0.0 - 0.5 06/24/2014 [facility] HEMATOLOGY Monocytes # 0.4 K/CMM 0.0 - 0.8 06/24/2014 [facility] HEMATOLOGY Basophils # 0.1 K/CMM 0.0 - 0.2 06/24/[address] [facility] Eosinophils 4.1 % 0.0 - 4.0 06/24/[address] [facility] Monocytes 6.4 % 2.0 - 12.0 06/24/[address] [facility] Lymphocytes 29.7 % 20.0 - 40.0 06/24/[address] [facility] Segs 58.5 % 45.0 - 75.0 06/24/[address] [facility] Basophils 1.3 % 0.0 - 1.0 06/24/[address] [facility] Segs-Bands # 3.2 K/CMM 1.5 - 8.1 06/24/2014 [facility] IMMUNOLOGY Prealbumin 17.1 mg/dL 18.0 - 45.0 06/24/2014 [facility] Chest 1view Chest 1view PROCEDURE: Chest 1view REASON FOR EXAM: See Clinic Indication CLINICAL INFORMATION Abnormal chest sounds COMPARISON: 05/2014 multiple x-rays. 04/2014. Increased left lower lobe infiltrate and pleural effusion when compared to 06/08/2014. Intact pacemaker wire. Enlarged cardiac silhouette. Increased right lower lobe infiltrate with probable small effusion. No pneumothorax. SL: 13 06/20/2014 - - Read by: Bryan Preston MD Dictated Date/time: 06/20/14 16:03 Electronically Signed by: Bryan Preston MD 06/20/14 16:[address] [facility] INR 1.86 0.85 - 1.17 06/16/2014 10Interpretive Data: RECOMMENDED RANGES FOR PROTIME INR: 2.0-3.0 for most medical and surgical thromboembolic states. 2.5-3.5 for artificial heart valves and recurrent embolism. INR SHOULD BE USED ONLY FOR PATIENTS ON STABLE ANTICOAGULANT THERAPY. [facility] PT 21.9 s 12.0 - 14.7 06/16/[address] [facility] INR 1.94 0.85 - 1.17 06/15/2014 11Interpretive Data: RECOMMENDED RANGES FOR PROTIME INR: 2.0-3.0 for most medical and surgical thromboembolic states. 2.5-3.5 for artificial heart valves and recurrent embolism. INR SHOULD BE USED ONLY FOR PATIENTS ON STABLE ANTICOAGULANT THERAPY. [facility] PT 22.6 s 12.0 - 14.7 06/15/2014 [facility] Wrist complete ( min.3 views) Wrist complete ( min.3 views) RIGHT WRIST, 3 views HISTORY: Right wrist pain and swelling. TECHNIQUE: Frontal, lateral, and oblique radiographs of the right wrist were obtained. FINDINGS: The joint spaces are well maintained. There is no evidence of fracture, dislocation, or other osteoarticular abnormality. There are no significant degenerative changes. There is a small triangular shaped dystrophic calcification adjacent to the distal ulna. CONCLUSION: 1. Negative right wrist. 2. Small dystrophic calcification adjacent to the distal ulna. SL: 13 Candido Dawn M.D. 06/14/2014 - - Read by: Candido Dawn MD Dictated Date/time: 06/14/14 15:18 Electronically Signed by: Candido Dawn MD 06/14/14 15:20 FINAL REPORT [facility] CHEM PANEL Vitamin D, 25-OH, Total 17 ng/mL 30 - 100 06/14/2014 7Interpretive Data: Reference range is based on recommendations in the Endocrine Society Clinical Practice Guideline (J Clin Endocrinol Metab 2011;96:0132-0529) [facility] CHEM PANEL Albumin Lvl 2.7 g/dL 3.5 - 5.0 06/14/2014 [facility] CHEM PANEL Phosphorus 4.0 mg/dL 2.5 - 4.5 06/14/2014 [facility] CHEM PANEL Magnesium Lvl 2.4 mg/dL 1.8 - 2.4 06/14/[address] [facility] PTT 32.5 s 22.9 - 35.8 06/14/2014 13Interpretive Data: Heparin Therapeutic Range: 57 - [address] [facility] PT 20.9 s 12.0 - 14.7 06/14/[address] [facility] INR 1.76 0.85 - 1.17 06/14/2014 12Interpretive Data: RECOMMENDED RANGES FOR PROTIME INR: 2.0-3.0 for most medical and surgical thromboembolic states. 2.5-3.5 for artificial heart valves and recurrent embolism. INR SHOULD BE USED ONLY FOR PATIENTS ON STABLE ANTICOAGULANT THERAPY. [facility] IMMUNOLOGY Prealbumin 11.1 mg/dL 18.0 - 45.0 06/14/2014 [facility] SPECIAL CHEMISTRY Hgb A1C 6.0 % <=5.6 % 06/14/2014 [facility] THYROID PANEL TSH 1.550 uIU/mL 0.360 - 3.740 06/14/2014 [facility] THYROID PANEL T4 Free 1.30 ng/dL 0.76 - 1.46 06/14/2014 [facility] HEMATOLOGY INR 1.33 0.85 - 1.17 06/12/2014 10Interpretive Data: RECOMMENDED RANGES FOR PROTIME INR: 2.0-3.0 for most medical and surgical thromboembolic states. 2.5-3.5 for artificial heart valves and recurrent embolism. INR SHOULD BE USED ONLY FOR PATIENTS ON STABLE ANTICOAGULANT THERAPY. [facility] HEMATOLOGY PT 16.3 s 12.0 - 14.7 06/12/2014 [facility] HEMATOLOGY INR 1.22 0.85 - 1.17 06/11/2014 11Interpretive Data: RECOMMENDED RANGES FOR PROTIME INR: 2.0-3.0 for most medical and surgical thromboembolic states. 2.5-3.5 for artificial heart valves and recurrent embolism. INR SHOULD BE USED ONLY FOR PATIENTS ON STABLE ANTICOAGULANT THERAPY. [facility] HEMATOLOGY PT 15.3 s 12.0 - 14.7 06/11/2014 [facility] HEMATOLOGY PT 14.2 s 12.0 - 14.7 06/10/2014 [facility] HEMATOLOGY INR 1.11 0.85 - 1.17 06/10/2014 12Interpretive Data: RECOMMENDED RANGES FOR PROTIME INR: 2.0-3.0 for most medical and surgical thromboembolic states. 2.5-3.5 for artificial heart valves and recurrent embolism. INR SHOULD BE USED ONLY FOR PATIENTS ON STABLE ANTICOAGULANT THERAPY. [facility] CHEM PANEL Magnesium Lvl 2.5 mg/dL 1.8 - 2.4 06/08/2014 [facility] CHEM PANEL Phosphorus 3.6 mg/dL 2.5 - 4.5 06/08/2014 [facility] ELECTROLYTES AGAP 10.3 meq/L 10.0 - 20.0 06/08/2014 [facility] ELECTROLYTES Calcium Lvl 9.3 mg/dL 8.5 - 10.5 06/08/2014 [facility] ELECTROLYTES eGFR 39 mL/min/1.73m2 06/08/2014 1Result Comment: The eGFR is calculated using the CKD-EPI formula. In most young, healthy individuals the eGFR will be >90 mL/min/1.73m2. The eGFR declines with age. An eGFR of 60-89 may be normal in some populations, particularly the elderly, for whom the CKD-EPI formula has not been extensively validated. Use of the eGFR is not recommended in the following populations: Individuals with unstable creatinine concentrations, including patients and those with serious co-morbid conditions. Patients with extremes in muscle mass or diet. The data above are obtained from the National Kidney Disease Education Program (NKDEP) which additionally recommends that when the eGFR is used in patients with extremes of body mass index for purposes of drug dosing, the eGFR should be multiplied by the estimated BMI. [facility] ELECTROLYTES Sodium Lvl 135 meq/L 135 - 145 06/08/2014 [facility] ELECTROLYTES Creatinine Lvl 1.3 mg/dL 0.5 - 1.4 06/08/2014 [facility] ELECTROLYTES BUN 33 mg/dL 7 - 22 06/08/2014 [facility] ELECTROLYTES Glucose Lvl 96 mg/dL 70 - 99 06/08/2014 4Interpretive Data: Adult reference range values reflect the clinical guidelines of the [place] [employer]. [facility] ELECTROLYTES CO2 30 meq/L 24 - 32 06/08/2014 [facility] ELECTROLYTES Chloride Lvl 99 meq/L 95 - 109 06/08/2014 [facility] ELECTROLYTES Potassium Lvl 4.3 meq/L 3.5 - 5.1 06/08/2014 [facility] HEMATOLOGY Basophils # 0.1 K/CMM 0.0 - 0.2 06/08/2014 [facility] HEMATOLOGY Segs-Bands # 4.1 K/CMM 1.5 - 8.1 06/08/2014 [facility] HEMATOLOGY Lymphocytes # 1.4 K/CMM 1.0 - 5.5 06/08/2014 [facility] HEMATOLOGY Monocytes # 0.5 K/CMM 0.0 - 0.8 06/08/2014 [facility] HEMATOLOGY Basophils 0.9 % 0.0 - 1.0 06/08/2014 [facility] HEMATOLOGY Eosinophils # 0.2 K/CMM 0.0 - 0.5 06/08/2014 [facility] HEMATOLOGY Lymphocytes 22.6 % 20.0 - 40.0 06/08/2014 [facility] HEMATOLOGY Monocytes 7.7 % 2.0 - 12.0 06/08/2014 [facility] HEMATOLOGY Segs 65.4 % 45.0 - 75.0 06/08/2014 [facility] HEMATOLOGY Eosinophils 3.4 % 0.0 - 4.0 06/08/2014 [facility] HEMATOLOGY RDW 14.2 % 11.5 - 14.5 06/08/[address] [facility] MPV 8.8 fL 7.4 - 10.4 06/08/[address] [facility] Platelet 184 K/CMM 133 - 450 06/08/[address] [facility] MCHC 32.5 g/dL 32.0 - 36.0 06/08/[address] [facility] MCH 30.1 pg 27.0 - 31.0 06/08/[address] [facility] WBC 6.2 K/CMM 3.7 - 10.4 06/08/[address] [facility] RBC 4.82 M/CMM 4.20 - 5.40 06/08/[address] [facility] Hct 44.6 % 36.0 - 48.0 06/08/[address] [facility] Hgb 14.5 g/dL 12.0 - 16.0 06/08/[address] [facility] MCV 92.6 fL 80.0 - 98.0 06/08/2014 [facility] CARDIAC ENZYMES BNP 317 pg/mL <=100 pg/mL 06/08/2014 8Interpretive Data: Elevated results are in line with increasing severity of congestive heart failure. Minor elevations between 100 and 300 may be seen with Myocardial Ischemia, Sodium retaining drugs, and compensated/treated heart failure. [facility] CHEM PANEL eGFR 32 mL/min/1.73m2 06/08/2014 2Result Comment: The eGFR is calculated using the CKD-EPI formula. In most young, healthy individuals the eGFR will be >90 mL/min/1.73m2. The eGFR declines with age. An eGFR of 60-89 may be normal in some populations, particularly the elderly, for whom the CKD-EPI formula has not been extensively validated. Use of the eGFR is not recommended in the following populations: Individuals with unstable creatinine concentrations, including patients and those with serious co-morbid conditions. Patients with extremes in muscle mass or diet. The data above are obtained from the National Kidney Disease Education Program (NKDEP) which additionally recommends that when the eGFR is used in patients with extremes of body mass index for purposes of drug dosing, the eGFR should be multiplied by the estimated BMI. [facility] CHEM PANEL CO2 30 meq/L 24 - 32 06/08/2014 [facility] CHEM PANEL Potassium Lvl 4.1 meq/L 3.5 - 5.1 06/08/2014 [facility] CHEM PANEL Chloride Lvl 100 meq/L 95 - 109 06/08/2014 [facility] CHEM PANEL BUN 33 mg/dL 7 - 22 06/08/2014 [facility] CHEM PANEL Creatinine Lvl 1.5 mg/dL 0.5 - 1.4 06/08/2014 [facility] CHEM PANEL Sodium Lvl 138 meq/L 135 - 145 06/08/2014 [facility] CHEM PANEL Calcium Lvl 9.0 mg/dL 8.5 - 10.5 06/08/2014 [facility] CHEM PANEL Glucose Lvl 102 mg/dL 70 - 99 06/08/2014 5Interpretive Data: Adult reference range values reflect the clinical guidelines of the [place] [employer]. [facility] CHEM PANEL Bili Total 0.6 mg/dL 0.2 - 1.3 06/08/2014 [facility] CHEM PANEL Alk Phos 85 unit/L 39 - 136 06/08/2014 [facility] CHEM PANEL ALT 19 unit/L 0 - 65 06/08/2014 [facility] CHEM PANEL AST 16 unit/L 0 - 37 06/08/2014 [facility] CHEM PANEL Total Protein 5.8 g/dL 6.4 - 8.4 06/08/2014 [facility] CHEM PANEL Albumin Lvl 2.7 g/dL 3.5 - 5.0 06/08/2014 [facility] CHEM PANEL Globulin 3.1 g/dL 2.0 - 4.0 06/08/2014 [facility] CHEM PANEL A/G Ratio 0.9 0.7 - 1.6 06/08/2014 [facility] CHEM PANEL AGAP 12.1 meq/L 10.0 - 20.0 06/08/2014 [facility] CHEM PANEL B/C Ratio 22 6 - 25 06/08/2014 [facility] CHEM PANEL Phosphorus 3.8 mg/dL 2.5 - 4.5 06/08/2014 [facility] CHEM PANEL Magnesium Lvl 2.5 mg/dL 1.8 - 2.4 06/08/2014 [facility] HEMATOLOGY WBC 6.6 K/CMM 3.7 - 10.4 06/08/2014 [facility] HEMATOLOGY RBC 4.53 M/CMM 4.20 - 5.40 06/08/[address] [facility] Hgb 13.6 g/dL 12.0 - 16.0 06/08/[address] [facility] MCHC 32.9 g/dL 32.0 - 36.0 06/08/[address] [facility] RDW 14.3 % 11.5 - 14.5 06/08/[address] [facility] MCH 30.1 pg 27.0 - 31.0 06/08/[address] [facility] Hct 41.5 % 36.0 - 48.0 06/08/[address] [facility] MCV 91.6 fL 80.0 - 98.0 06/08/[address] [facility] MPV 8.6 fL 7.4 - 10.4 06/08/[address] [facility] Platelet 172 K/CMM 133 - 450 06/08/[address] [facility] Segs 69.6 % 45.0 - 75.0 06/08/[address] [facility] Eosinophils # 0.2 K/CMM 0.0 - 0.5 06/08/[address] [facility] Monocytes # 0.5 K/CMM 0.0 - 0.8 06/08/[address] [facility] Basophils # 0.1 K/CMM 0.0 - 0.2 06/08/[address] [facility] Lymphocytes # 1.3 K/CMM 1.0 - 5.5 06/08/[address] [facility] Lymphocytes 19.1 % 20.0 - 40.0 06/08/[address] [facility] Eosinophils 2.8 % 0.0 - 4.0 06/08/[address] [facility] Monocytes 7.5 % 2.0 - 12.0 06/08/[address] [facility] Basophils 1.0 % 0.0 - 1.0 06/08/[address] [facility] Segs-Bands # 4.6 K/CMM 1.5 - 8.1 06/08/[address] [facility] PTT 25.1 s 22.9 - 35.8 06/06/2014 13Interpretive Data: Heparin Therapeutic Range: 57 - 92 Seconds [facility] CHEM PANEL eGFR 23 mL/min/1.73m2 06/04/2014 3Result Comment: The eGFR is calculated using the CKD-EPI formula. In most young, healthy individuals the eGFR will be >90 mL/min/1.73m2. The eGFR declines with age. An eGFR of 60-89 may be normal in some populations, particularly the elderly, for whom the CKD-EPI formula has not been extensively validated. Use of the eGFR is not recommended in the following populations: Individuals with unstable creatinine concentrations, including patients and those with serious co-morbid conditions. Patients with extremes in muscle mass or diet. The data above are obtained from the National Kidney Disease Education Program (NKDEP) which additionally recommends that when the eGFR is used in patients with extremes of body mass index for purposes of drug dosing, the eGFR should be multiplied by the estimated BMI. [facility] CHEM PANEL Sodium Lvl 135 meq/L 135 - 145 06/04/2014 [facility] CHEM PANEL Calcium Lvl 9.4 mg/dL 8.5 - 10.5 06/04/2014 [facility] CHEM PANEL CO2 28 meq/L 24 - 32 06/04/2014 [facility] CHEM PANEL Potassium Lvl 5.1 meq/L 3.5 - 5.1 06/04/2014 [facility] CHEM PANEL Creatinine Lvl 2.0 mg/dL 0.5 - 1.4 06/04/2014 [facility] CHEM PANEL Chloride Lvl 98 meq/L 95 - 109 06/04/2014 [facility] CHEM PANEL Bili Total 0.6 mg/dL 0.2 - 1.3 06/04/2014 [facility] CHEM PANEL ALT 30 unit/L 0 - 65 06/04/2014 [facility] CHEM PANEL Albumin Lvl 3.4 g/dL 3.5 - 5.0 06/04/2014 [facility] CHEM PANEL Alk Phos 112 unit/L 39 - 136 06/04/2014 [facility] CHEM PANEL AST 35 unit/L 0 - 37 06/04/2014 [facility] CHEM PANEL Total Protein 7.3 g/dL 6.4 - 8.4 06/04/2014 [facility] CHEM PANEL Glucose Lvl 162 mg/dL 70 - 99 06/04/2014 6Interpretive Data: Adult reference range values reflect the clinical guidelines of the [place] [employer]. [facility] CHEM PANEL BUN 32 mg/dL 7 - 22 06/04/2014 [facility] CHEM PANEL B/C Ratio 16 6 - 25 06/04/2014 [facility] CHEM PANEL AGAP 14.1 meq/L 10.0 - 20.0 06/04/2014 [facility] CHEM PANEL Globulin 3.9 g/dL 2.0 - 4.0 06/04/2014 [facility] CHEM PANEL A/G Ratio 0.9 0.7 - 1.6 06/04/2014 [facility] CHEM PANEL Phosphorus 3.7 mg/dL 2.5 - 4.5 06/04/2014 [facility] CHEM PANEL Magnesium Lvl 3.0 mg/dL 1.8 - 2.4 06/04/[address] [facility] MCH 30.5 pg 27.0 - 31.0 06/04/[address] [facility] MPV 9.0 fL 7.4 - 10.4 06/04/[address] [facility] Platelet 240 K/CMM 133 - 450 06/04/[address] [facility] MCHC 33.2 g/dL 32.0 - 36.0 06/04/[address] [facility] RDW 14.7 % 11.5 - 14.5 06/04/[address] [facility] MCV 91.8 fL 81.0 - 99.0 06/04/[address] [facility] Hgb 16.0 g/dL 12.0 - 16.0 06/04/[address] [facility] Hct 48.2 % 36.0 - 48.0 06/04/[address] [facility] WBC 10.4 K/CMM 3.7 - 10.4 06/04/[address] [facility] RBC 5.25 M/CMM 4.20 - 5.40 06/04/2014 [facility] HEMATOLOGY Eosinophils # 0.2 K/CMM 0.0 - 0.5 06/04/2014 [facility] HEMATOLOGY Basophils # 0.1 K/CMM 0.0 - 0.2 06/04/[address] [facility] Monocytes # 0.9 K/CMM 0.0 - 0.8 06/04/[address] [facility] Lymphocytes 19.9 % 20.0 - 40.0 06/04/2014 [facility] HEMATOLOGY Segs 67.9 % 45.0 - 75.0 06/04/[address] [facility] Lymphocytes # 2.1 K/CMM 1.0 - 5.5 06/04/2014 [facility] HEMATOLOGY Segs-Bands # 7.1 K/CMM 1.5 - 8.1 06/04/[address] [facility] Monocytes 8.8 % 2.0 - 12.0 06/04/[address] [facility] Basophils 1.0 % 0.0 - 1.0 06/04/2014 [facility] HEMATOLOGY Eosinophils 2.4 % 0.0 - 4.0 06/04/2014 [facility] CHEM PANEL Vitamin D, 25-OH, Total 24 ng/mL 30 - 100 06/01/2014 7Interpretive Data: Reference range is based on recommendations in the Endocrine Society Clinical Practice Guideline (J Clin Endocrinol Metab 2011;96:5511-0227) [facility] CARDIAC ENZYMES CK MB Index 2.6 0.0 - 2.5 05/31/2014 [facility] CARDIAC ENZYMES Troponin-I 0.05 ng/mL 0.00 - 0.40 05/31/2014 [facility] CARDIAC ENZYMES Total CK 80 unit/L 12 - 191 05/31/2014 [facility] CARDIAC ENZYMES CK MB 2.1 ng/mL 0.5 - 3.6 05/31/2014 [facility] LIPIDS HDL 37 mg/dL >=61 mg/dL 05/31/2014 [facility] LIPIDS Trig 102 mg/dL <=149 mg/dL 05/31/2014 [facility] LIPIDS Chol 141 mg/dL <=199 mg/dL 05/31/2014 [facility] LIPIDS VLDL 20 05/31/2014 [facility] LIPIDS LDL (Calculated) 84 mg/dL <=99 mg/dL 05/31/2014 [facility] LIPIDS CHD Risk 3.81 3.90 - 5.80 05/31/2014 [facility] SPECIAL CHEMISTRY Hgb A1C 5.6 % <=5.6 % 05/31/2014 [facility] CARDIAC ENZYMES CK MB Index 2.5 0.0 - 2.5 05/31/2014 [facility] CARDIAC ENZYMES CK MB 2.0 ng/mL 0.5 - 3.6 05/31/2014 [facility] CARDIAC ENZYMES Troponin-I 0.05 ng/mL 0.00 - 0.40 05/31/2014 [facility] CARDIAC ENZYMES Total CK 79 unit/L 12 - 191 05/31/2014 [facility] CHEM PANEL A/G Ratio 0.9 0.7 - 1.6 05/31/2014 [facility] CHEM PANEL ALT 20 unit/L 0 - 65 05/31/2014 [facility] CHEM PANEL AST 17 unit/L 0 - 37 05/31/2014 [facility] CHEM PANEL Albumin Lvl 3.4 g/dL 3.5 - 5.0 05/31/2014 [facility] CHEM PANEL Total Protein 7.1 g/dL 6.4 - 8.4 05/31/2014 [facility] CHEM PANEL Globulin 3.7 g/dL 2.0 - 4.0 05/31/2014 [facility] CHEM PANEL Bili Total 0.8 mg/dL 0.2 - 1.3 05/31/2014 [facility] CHEM PANEL Alk Phos 105 unit/L 39 - 136 05/31/2014 [facility] CHEM PANEL B/C Ratio 11 6 - 25 05/31/2014 [facility] CARDIAC ENZYMES Troponin-I 0.05 ng/mL 0.00 - 0.40 05/31/2014 [facility] CARDIAC ENZYMES CK MB 2.1 ng/mL 0.5 - 3.6 05/31/2014 [facility] CARDIAC ENZYMES Total CK 74 unit/L 12 - 191 05/31/2014 [facility] CARDIAC ENZYMES CK MB Index 2.8 0.0 - 2.5 05/31/2014 [facility] CARDIAC ENZYMES BNP 480 pg/mL <=100 pg/mL 05/30/2014 9Interpretive Data: Elevated results are in line with increasing severity of congestive heart failure. Minor elevations between 100 and 300 may be seen with Myocardial Ischemia, Sodium retaining drugs, and compensated/treated heart failure. [facility] HEMATOLOGY PTT 22.8 s 22.9 - 35.8 05/30/2014 14Interpretive Data: Heparin Therapeutic Range: 57 - 92 Seconds [facility] Vital Signs Vital Sign Value Date Comments Source Temperature Oral (F) 98.5 F 04/02/2018 [facility] Heart Rate 63 04/02/2018 [facility] Systolic (mm Hg) 145 04/02/2018 [facility] Diastolic (mm Hg) 77 04/02/2018 [facility] Systolic (mm Hg) 150 04/02/2018 [facility] Diastolic (mm Hg) 84 04/02/2018 [facility] Heart Rate 64 04/02/2018 [facility] Temperature Oral (F) 98.7 F 04/02/2018 [facility] Temperature Oral (F) 98.3 F 04/02/2018 [facility] Systolic (mm Hg) 145 04/02/2018 [facility] Diastolic (mm Hg) 84 04/02/2018 [facility] Heart Rate 63 04/02/2018 [facility] Respitory Rate 16 04/01/2018 [facility] Respitory Rate 20 04/01/2018 [facility] Respitory Rate 21 04/01/2018 [facility] Weight 77.273 04/01/2018 [facility] Height 172.72 cm 04/01/2018 [facility] BMI Calculated 25.9 04/01/2018 [facility] Systolic (mm Hg) 152 03/24/2018 [facility] Diastolic (mm Hg) 99 03/24/2018 [facility] Respitory Rate 20 03/24/2018 [facility] Respitory Rate 20 03/24/2018 [facility] Respitory Rate 16 03/24/2018 [facility] Height 172.72 cm 03/24/2018 [facility] Weight 78.636 03/24/2018 [facility] BMI Calculated 26.36 03/24/2018 [facility] Systolic (mm Hg) 137 03/24/2018 [facility] Diastolic (mm Hg) 85 03/24/2018 [facility] Heart Rate 64 03/24/2018 [facility] Temperature Oral (F) 98.4 F 03/24/2018 [facility] Respitory Rate 18 04/21/2017 [facility] Heart Rate 64 04/21/2017 [facility] Systolic (mm Hg) 115 04/21/2017 [facility] Diastolic (mm Hg) 74 04/21/2017 [facility] Temperature Oral (F) 98.1 F 04/21/2017 [facility] Systolic (mm Hg) 127 04/21/2017 [facility] Diastolic (mm Hg) 80 04/21/2017 [facility] Respitory Rate 18 04/21/2017 [facility] Heart Rate 62 04/21/2017 [facility] Temperature Oral (F) 98.0 F 04/21/2017 [facility] Respitory Rate 16 04/21/2017 [facility] Temperature Oral (F) 98.3 F 04/21/2017 [facility] Heart Rate 64 04/21/2017 [facility] Systolic (mm Hg) 143 04/21/2017 [facility] Diastolic (mm Hg) 94 04/21/2017 [facility] Weight 92.5 04/18/2017 [facility] Height 172.72 cm 04/18/2017 [facility] BMI Calculated 31.01 04/18/2017 [facility] BMI Calculated 31.39 04/17/2017 [facility] Weight 93.636 04/17/2017 [facility] Height 172.72 cm 04/17/2017 [facility] Temperature Oral (F) 98.4 F 07/04/2014 [facility] Respitory Rate 18 07/04/2014 [facility] Systolic (mm Hg) 117 07/04/2014 [facility] Heart Rate 66 07/04/2014 [facility] Diastolic (mm Hg) 79 07/04/2014 [facility] Heart Rate 69 07/04/2014 [facility] Systolic (mm Hg) 131 07/04/2014 [facility] Diastolic (mm Hg) 91 07/04/2014 [facility] Heart Rate 69 07/04/2014 [facility] Systolic (mm Hg) 129 07/04/2014 [facility] Respitory Rate 16 07/04/2014 [facility] Diastolic (mm Hg) 83 07/04/2014 [facility] Temperature Oral (F) 97.8 F 07/04/2014 [facility] Temperature Oral (F) 98 F 07/03/2014 [facility] Respitory Rate 18 07/03/2014 [facility] Weight 94.773 06/13/2014 [facility] Height 172.72 cm 06/13/2014 [facility] BMI Calculated 31.77 06/13/2014 [facility] Diastolic (mm Hg) 74 06/13/2014 [facility] Systolic (mm Hg) 116 06/13/2014 [facility] Heart Rate 64 06/13/2014 [facility] Temperature Oral (F) 98.8 F 06/13/2014 [facility] Respitory Rate 18 06/13/2014 [facility] Heart Rate 64 06/13/2014 [facility] Respitory Rate 18 06/13/2014 [facility] Temperature Oral (F) 98.8 F 06/13/2014 [facility] Diastolic (mm Hg) 74 06/13/2014 [facility] Systolic (mm Hg) 116 06/13/2014 [facility] Heart Rate 79 06/12/2014 [facility] Temperature Oral (F) 98.1 F 06/12/2014 [facility] Respitory Rate 16 06/12/2014 [facility] Systolic (mm Hg) 134 06/12/2014 [facility] Diastolic (mm Hg) 90 06/12/2014 [facility] Weight 95.455 05/31/2014 [facility] BMI Calculated 32 05/31/2014 [facility] Height 172.72 cm 05/31/2014 [facility] BMI Calculated 32 05/30/2014 [facility] Height 172.72 cm 05/30/2014 [facility] Weight 95.455 05/30/2014 [facility] Encounters Location Location Details Encounter Type Encounter Number Reason For Visit Attending Provider ADM Date DC Date Status Source [facility] - [place] [facility] [id number] Vishnu Lew 05/01/2014 05/02/2014 [facility] Inpatient [id number] Oscar Wyman 05/30/2014 06/13/2014 [facility] Inpatient [facility]hab [id number] Earnest Pollack Jr 06/13/2014 07/04/2014 [facility] Outpatient Imaging - [place] Outpt Diag Services [id number] Vishnu Lew 07/21/2016 07/22/2016 [facility] Inpatient [id number] Marcin Perez 04/17/2017 04/22/2017 [facility] Emergency [id number] Richie Richard 03/24/2018 03/24/2018 [facility] Observation [id number] Marcin Mcneil 04/01/2018 04/02/2018 [facility] Procedures Procedure Code Date Perfomer Comments Source Cardiac pacemaker procedure [id number] [facility] Tonsillectomy [id number] [facility]
--- OUTSIDE RECORDS SUMMARY | 2019-01-19 15:13 | XMS REPORT | Summary of Care ---
Author Author [facility] Organization [facility] Address Unknown Phone Unavailable Encounter [facility](DEEPA) [id number] Date(s): 04/01/18 - 04/02/18 [facility] [address] [place] [address]- [phone] Discharge Disposition: Home or Self Care Attending Physician: Marcin Perez MD Admitting Physician: Marcin Perez MD Vital Signs 1 2 3 Most recent to oldest [Reference Range]: 172.72 cm (04/01/18 11:37 AM) Height 98.5 DegF (04/02/18 3:08 AM) 98.7 DegF (04/01/18 11:10 PM) 98.3 DegF (04/01/18 7:18 PM) Temperature Oral [96.4-99.1 DegF] 145/77 mmHg *HI* (04/02/18 3:08 AM) 150/84 mmHg *HI* (04/01/18 11:10 PM) 145/84 mmHg *HI* (04/01/18 7:18 PM) Blood Pressure [90-140/60-90 mmHg] 16 BRMIN (04/01/18 4:05 PM) 20 BRMIN (04/01/18 3:00 PM) 21 BRMIN *HI* (04/01/18 2:11 PM) Respiratory Rate [14-20 BRMIN] 63 bpm (04/02/18 3:08 AM) 64 bpm (04/01/18 11:10 PM) 63 bpm (04/01/18 7:18 PM) Peripheral Pulse Rate [60-100 bpm] 77.273 kg (04/01/18 11:37 AM) Weight 25.9 m2 (04/01/18 11:37 AM) Body Mass Index Problem List Condition Effective Dates Status Health Status Informant Atrial Active fibrillation(Confirm ed) Bradycardia, severe Active sinus(Confirmed) Pacemaker(Confirmed) Active CVA (cerebral Resolved vascular accident)(Confirmed) Hemiparesis, Active right(Confirmed) HTN Active (hypertension)(Confi rmed) 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) SSS (sick sinus Active syndrome)(Confirmed) Temporary cardiac Active pacemaker procedure(Confirmed) Allergies, Adverse Reactions, Alerts Substance Reaction Severity Status sulfa drugs Active codeine Active morphine Active Demerol Active Medications acetaminophen 650 mg, 2 tab, Route: PO, Drug form: TAB, Q6H, Dosing Weight 77.273, kg, PRN Dyana n 1-3/Temp > 100.4 F, Start date: 04/01/18 15:21:00 CDT, Duration: 30 day, Stop date: 05/01/18 15:20:00 CDT Notes: Do not exceed 4 gm/day. (Same as: Tylenol) Start Date: 04/01/18 Stop Date: 04/02/18 Status: Discontinued acetaminophen-hydrocodone 325 mg-5 mg oral tablet 1 tab, Route: PO, Drug Form: TAB, Dosing Weight 77.273, kg, Q6H, PRN Pain Score 4-6, Start date: 04/01/18 15:21:00 CDT, Duration: 30 day, Stop date: 05/01/18 15 :20:00 CDT Notes: (Same as: [place] 325/5) Do not exceed 4gm/day of acetaminophen. Start Date: 04/01/18 Stop Date: 04/02/18 Status: Discontinued amLODIPine 10 mg, 2 tab, Route: PO, Drug form: TAB, Bedtime, Dosing Weight 77.273, kg, Star t date: 04/01/18 21:00:00 CDT, Duration: 30 day, Stop date: 04/30/18 21:00:00 CD T Notes: (Same as: Norvasc) Start Date: 04/01/18 Stop Date: 04/02/18 Status: Discontinued Aspirin Enteric Coated 81 mg, 1 tab, Route: PO, Drug form: ECTAB, Daily, Dosing Weight 77.273, kg, Star t date: 04/02/18 9:00:00 CDT, Duration: 30 day, Stop date: 05/01/18 9:00:00 CDT Notes: Do not crush or chew.(Same As: Ecotrin) Start Date: 04/02/18 Stop Date: 04/02/18 Status: Discontinued bumetanide 1 mg oral tablet 1 mg=1 tab, PO, Daily, # 30 tab, 0 Refill(s), other Start Date: 04/02/18 Status: Ordered Bumex 1 mg, BID, 0 Refill(s) Start Date: 04/01/18 Stop Date: 04/02/18 Status: Discontinued cefepime + Sodium Chloride 0.9% IV 100 mL 1 gm, Route: IVPB, [id number], Dosing Weight 77.273, kg, (CrCl >/=50 ml/min), Start date: 04/01/18 20:00:00 CDT, Stop date: 04/10/18 15:00:00 CDT, ABX Indication: Urinary Tract Infection Notes: (Same As: Maxipime) MEDICATION WASTE Product Size: 1000 mgProduc t Wasted: ___ mg Start Date: 04/01/18 Stop Date: 04/02/18 Status: Discontinued cephalexin 500 mg oral capsule 500 mg=1 cap, PO, QID, # 20 cap, 0 Refill(s) Start Date: 04/01/18 Stop Date: 04/02/18 Status: Discontinued cyanocobalamin 1,000 microgram, 2 tab, Route: PO, Drug form: TAB, Daily, Dosing Weight 77.273, kg, Start date: 04/03/18 14:00:00 CDT, Duration: 30 day, Stop date: 05/03/18 9:0 0:00 CDT Notes: (Same As: Vitamin B12) Start Date: 04/03/18 Stop Date: 04/02/18 Status: Canceled cyanocobalamin 1000 mcg with salcaprozate sodium oral tablet 1,000 microgram, PO, Daily, # 30 tab, 0 Refill(s), Pharmacy: [facility] [id number] Start Date: 04/02/18 Stop Date: 05/02/18 Status: Ordered Diflucan 150 mg, 3 tab, Route: PO, Drug form: TAB, ONCE, Dosing Weight 77.273, kg, Start date: 04/01/18 20:09:00 CDT, Stop date: 04/01/18 20:09:00 CDT, ABX Indication: O ther (specify in Comments) Notes: (Same as: Diflucan) Start Date: 04/01/18 Stop Date: 04/01/18 Status: Completed docusate 100 mg, 1 cap, Route: PO, Drug form: CAP, BID, Dosing Weight 77.273, kg, PRN as needed for constipation, Start date: 04/01/18 15:21:00 CDT, Duration: 30 day, St op date: 05/01/18 15:20:00 CDT Notes: (Same as: Colace) (Do Not Crush) Start Date: 04/01/18 Stop Date: 04/02/18 Status: Discontinued hydrALAZINE 10 mg, 0.5 mL, Route: IVP, Drug form: INJ, Q4H, Dosing Weight 77.273, kg, PRN Hy pertension, Start date: 04/01/18 19:16:00 CDT, Duration: 30 day, Stop date: 04/18 02/03 19:15:00 CDT Notes: (Same as: Apresoline)Push over 5 minutes Start Date: 04/01/18 Stop Date: 04/02/18 Status: Discontinued Levaquin 500 mg oral tablet 500 mg=1 tab, PO, Q24H, X 7 day, # 7 tab, 0 Refill(s), Pharmacy: [facility] [id number] Start Date: 04/02/18 Stop Date: 04/09/18 Status: Ordered Macrobid 100 mg oral capsule 100 mg=1 cap, PO, BID, # 14 cap, 0 Refill(s) Start Date: 04/01/18 Stop Date: 04/02/18 Status: Discontinued melatonin 3 mg, 1 tab, Route: PO, Drug form: TAB, Bedtime, Dosing Weight 77.273, kg, PRN S leep, Start date: 04/01/18 19:16:00 CDT, Duration: 30 day, Stop date: 05/01/18 1 9:15:00 CDT Notes: (Same as: Melatonin) Start Date: 04/01/18 Stop Date: 04/02/18 Status: Discontinued NS (Bolus) IV 250 mL, 250 ml/hr, Infuse Over: 1 hr, Route: IV, ONCE, Priority: STAT, Dosing We ight 77.273 kg, Start date: 04/01/18 13:52:00 CDT, Stop date: 04/01/18 13:52:00 CDT Start Date: 04/01/18 Stop Date: 04/01/18 Status: Completed NS 1,000 mL 1,000 mL, Rate: 75 ml/hr, Infuse over: 13.3 hr, Route: IV, Dosing Weight 77.273 kg, Total Volume: 1,000, Start date: 04/01/18 14:27:00 CDT, Duration: 30 day, St op date: 05/01/18 14:26:00 CDT, 1.94, m2 Start Date: 04/01/18 Stop Date: 04/02/18 Status: Discontinued ondansetron 4 mg, 2 mL, Route: IVP, Drug form: INJ, Q6H, Dosing Weight 77.273, kg, PRN Nause a & Vomiting, Start date: 04/01/18 15:21:00 CDT, Duration: 30 day, Stop date: 05/01/18 15:20:00 CDT Notes: (Same as: Zofran) MEDICATION WASTE Product Size: 4 mgProduct Was iván: ___ mg Start Date: 04/01/18 Stop Date: 04/02/18 Status: Discontinued Sodium Chloride 0.9% (Bolus) IV 1,000 mL, 1000 ml/hr, Infuse Over: 1 hr, Route: IV, 1,000, Drug form: INJ, ONCE, Priority: STAT, Dosing Weight 77.273 kg, Start date: 04/01/18 14:25:00 CDT, Stop date: 04/01/18 14:25:00 CDT Start Date: 04/01/18 Stop Date: 04/01/18 Status: Completed spironolactone 25 mg oral tablet 25 mg=1 tab, PO, Daily, # 30 tab, 3 Refill(s) Start Date: 04/01/18 Stop Date: 05/01/18 Status: Ordered valsartan 320 mg, Route: PO, Drug form: TAB, Bedtime, Dosing Weight 77.273, kg, Start date : 04/01/18 21:00:00 CDT, Duration: 30 day, Stop date: 04/30/18 21:00:00 CDT Start Date: 04/01/18 Stop Date: 04/01/18 Status: Canceled valsartan 320 mg oral tablet 320 mg=1 tab, PO, Bedtime, # 30 tab, 0 Refill(s) Start Date: 04/01/18 Status: Ordered Results ELECTROLYTES Most recent to 1 2 oldest [Reference Range]: Sodium Lvl [135-145 133 mEq/L 127 mEq/L mEq/L] *LOW* *LOW* (04/02/18 5:49 AM) (04/01/18 12:59 PM) Potassium Lvl 4.1 mEq/L 4.8 mEq/L [3.5-5.1 mEq/L] (04/02/18 5:49 AM) (04/01/18 12:59 PM) Chloride Lvl [95-109 101 mEq/L 93 mEq/L mEq/L] (04/02/18 5:49 AM) *LOW* (04/01/18 12:59 PM) CO2 [24-32 mEq/L] 21 mEq/L 24 mEq/L *LOW* (04/01/18 12:59 PM) (04/02/18 5:49 AM) AGAP [10.0-20.0 15.1 mEq/L 14.8 mEq/L mEq/L] (04/02/18 5:49 AM) (04/01/18 12:59 PM) CHEM PANEL Most recent to 1 2 oldest [Reference Range]: Creatinine Lvl 1.18 mg/dL 1.71 mg/dL [0.50-1.40 mg/dL] (04/02/18 5:49 AM) *HI* (04/01/18 12:59 PM) eGFR 42 mL/min/1.73m2 1 27 mL/min/1.73m2 2 *NA* *NA* (04/02/18 5:49 AM) (04/01/18 12:59 PM) BUN [7-22 mg/dL] 17 mg/dL 18 mg/dL (04/02/18 5:49 AM) (04/01/18 12:59 PM) B/C Ratio [6-25] 14 11 (04/02/18 5:49 AM) (04/01/18 12:59 PM) Glucose Lvl [70-99 85 mg/dL 92 mg/dL mg/dL] (04/02/18 5:49 AM) (04/01/18 12:59 PM) Total Protein 6.9 g/dL 8.5 g/dL [6.4-8.4 g/dL] (04/02/18 5:49 AM) *HI* (04/01/18 12:59 PM) Albumin Lvl [3.5-5.0 3.4 g/dL 4.4 g/dL g/dL] *LOW* (04/01/18 12:59 PM) (04/02/18 5:49 AM) Globulin [2.7-4.2 3.5 g/dL 4.1 g/dL g/dL] (04/02/18 5:49 AM) (04/01/18 12:59 PM) A/G Ratio [0.7-1.6] 1.0 1.1 (04/02/18 5:49 AM) (04/01/18 12:59 PM) Calcium Lvl 8.5 mg/dL 9.9 mg/dL [8.5-10.5 mg/dL] (04/02/18 5:49 AM) (04/01/18 12:59 PM) Magnesium Lvl 2.1 mg/dL [1.8-2.4 mg/dL] (04/02/18 5:49 AM) ALT [0-65 unit/L] 12 unit/L 20 unit/L (04/02/18 5:49 AM) (04/01/18 12:59 PM) AST [0-37 unit/L] 16 unit/L 26 unit/L (04/02/18 5:49 AM) (04/01/18 12:59 PM) Alk Phos [39-136 59 unit/L 74 unit/L unit/L] (04/02/18 5:49 AM) (04/01/18 12:59 PM) Bili Total [0.2-1.3 1.1 mg/dL 1.6 mg/dL mg/dL] (04/02/18 5:49 AM) *HI* (04/01/18 12:59 PM) Lactic Acid Lvl 1.9 mMol/L [0.5-2.2 mMol/L] (04/01/18 12:59 PM) 1Result Comment: The eGFR is calculated using [...] from the National Kidney Disease Education Program ( NKDEP) which additionally recommends that when the eGFR is used in patients with extremes of body mass index for purposes of drug dosing, the eGFR should be mul tiplied by the estimated BMI. 2Result Comment: The eGFR is calculated using [...] from the National Kidney Disease Education Program ( NKDEP) which additionally recommends that when the eGFR is used in patients with extremes of body mass index for purposes of drug dosing, the eGFR should be mul tiplied by the estimated BMI. CARDIAC ENZYMES Most recent to 1 2 oldest [Reference Range]: Total CK [12-191 110 unit/L unit/L] (04/01/18 12:59 PM) CK MB [0.5-3.6 1.9 ng/mL ng/mL] (04/01/18 12:59 PM) CK MB Index 1.7 [0.0-2.5] (04/01/18 12:59 PM) Troponin-I <0.02 ng/mL [0.00-0.40 ng/mL] (04/01/18 12:59 PM) ANEMIA STUDY Most recent to 1 2 oldest [Reference Range]: Vitamin B12 Lvl 205 pg/mL [254-1320 pg/mL] *LOW* (04/02/18 5:49 AM) URINE AND STOOL Most recent to 1 2 oldest [Reference Range]: UA Turbidity [Clear] Clear (04/01/18 2:10 PM) UA Color [Yellow] Yellow *NA* (04/01/18 2:10 PM) UA pH [5.0-8.0] 5.0 (04/01/18 2:10 PM) UA Spec Grav 1.015 [<=1.030] (04/01/18 2:10 PM) UA Glucose [Negative Negative mg/dL mg/dL] *NA* (04/01/18 2:10 PM) UA Blood [Negative] Small *ABN* (04/01/18 2:10 PM) UA Ketones [Negative Trace mg/dL mg/dL] *ABN* (04/01/18 2:10 PM) UA Protein [Negative Negative mg/dL mg/dL] (04/01/18 2:10 PM) UA Urobilinogen <=1.0 mg/dL [0.1-1.0 mg/dL] *NA* (04/01/18 2:10 PM) UA Bili [Negative] Negative *NA* (04/01/18 2:10 PM) UA Leuk Est Negative [Negative] (04/01/18 2:10 PM) UA Nitrite Negative [Negative] (04/01/18 2:10 PM) UA WBC [0-5 /HPF] 3 /HPF (04/01/18 2:10 PM) UA RBC [0-2 /HPF] 3 /HPF *HI* (04/01/18 2:10 PM) UA Bacteria [None Occasional /HPF Seen /HPF] *NA* (04/01/18 2:10 PM) UA Sq Epi None Seen *NA* (04/01/18 2:10 PM) UA Hyal Cast [0-2 13 /LPF /LPF] *HI* (04/01/18 2:10 PM) UA Mucus [None Seen Few /LPF /LPF] *NA* (04/01/18 2:10 PM) HEMATOLOGY Most recent to 1 2 oldest [Reference Range]: WBC [3.7-10.4 K/CMM] 6.1 K/CMM (04/02/18 5:49 AM) RBC [4.20-5.40 5.05 M/CMM M/CMM] (04/02/18 5:49 AM) Hgb [12.0-16.0 g/dL] 16.2 g/dL *HI* (04/02/18 5:49 AM) Hct [36.0-48.0 %] 47.1 % (04/02/18 5:49 AM) MCV [80.0-98.0 fL] 93.3 fL (04/02/18 5:49 AM) MCH [27.0-31.0 pg] 32.0 pg *HI* (04/02/18 5:49 AM) MCHC [32.0-36.0 34.4 g/dL g/dL] (04/02/18 5:49 AM) RDW [11.5-14.5 %] 13.7 % (04/02/18 5:49 AM) MPV [7.4-10.4 fL] 8.2 fL (04/02/18 5:49 AM) Platelet [133-450 199 K/CMM K/CMM] (04/02/18 5:49 AM) Segs [45.0-75.0 %] 69.2 % (04/02/18 5:49 AM) Lymphocytes 22.1 % [20.0-40.0 %] (04/02/18 5:49 AM) Monocytes [2.0-12.0 6.4 % %] (04/02/18 5:49 AM) Eosinophils [0.0-4.0 1.0 % %] (04/02/18 5:49 AM) Basophils [0.0-1.0 1.3 % %] *HI* (04/02/18 5:49 AM) Segs-Bands # 4.2 K/CMM [1.5-8.1 K/CMM] (04/02/18 5:49 AM) Lymphocytes # 1.4 K/CMM [1.0-5.5 K/CMM] (04/02/18 5:49 AM) Monocytes # [0.0-0.8 0.4 K/CMM K/CMM] (04/02/18 5:49 AM) Eosinophils # 0.1 K/CMM [0.0-0.5 K/CMM] (04/02/18 5:49 AM) Basophils # [0.0-0.2 0.1 K/CMM K/CMM] (04/02/18 5:49 AM) Immunizations No data available for this section Procedures Procedure Date Related Diagnosis Body Site Status Cardiac pacemaker procedure Completed Tonsillectomy Completed Social History Social History Type Response Alcohol Never, 0 Drinks/Episode average. 0.00 Drinks/Episode maximum. Alcohol use interferes with work or home: No. Drinks more than intended: No. Others hurt by drinking: No. Ready to change: No. Household alcohol concerns: No. Smoking Status Never smoker; Previous treatment: None; Ready to change: No; Concerns about tobacco use in household: No; Exposure to Tobacco Smoke None; Cigarette Smoking Last 365 Days No; Reg Smoking Cessation Counseling No; Tobacco use per day: 0; Number of years: 0; Total pack years: 0; Started at age: 2.0; Stopped at age: 2; entered on: 04/01/18 Assessment and Plan Extracted from: Title: Discharge Summary * Author: Marcin Perez MD Date: 04/02/18 Discharge Information Disposition to home Condition stable Medications: See med reconciliation form Diet: Heart healthy Discharge Plan In the event of any worsening symptom patient was to come back to the ED for further evaluation Discharge summary to greater than 35 minutes Extracted from: Title: General Admission H&P * Author: Marcin Perez MD Date: 04/01/18 Impression and Plan 1. Acute metabolic encephalopathy could be due to hyponatremia, CT brain, TSH, vitamin B12, patient was alert and oriented 2 during my examination 2. Hyponatremia likely due to diuretics sodium 127, IV fluids 3. Acute kidney injury secondary to prerenal azotemia from dehydration IV fluids, a.m. labs 4. Probable UTI urine culture pending, IV cefepime 5. Hypertension stable, continue same home medication 6. Prophylaxis Lovenox 7. Fluid electrolytes nutrients IV fluids, heart healthy diet 8. Disposition inpatient
--- OUTSIDE RECORDS SUMMARY | 2019-01-19 15:13 | XMS REPORT | Summary of Care ---
Author Organization Unknown Address Unknown Phone Unavailable Encounter [facility]) [id number] Date(s): 05/01/14 - 05/01/14 [facility] Outpatient Imaging - [address] [address] [place] Discharge Disposition: Home Physician Attending: Vishnu Lew MD Reason for Visit 428.0 - CHF NOS 427.31 - ATRIAL [facility] Problem List No data available for this section Allergies, Adverse Reactions, Alerts Substance Reaction Severity Status codeine Active Demerol Active morphine Active Medications No data available for this section Medications Administered During Your Visit No data available for this section Immunizations No data available for this section
--- OUTSIDE RECORDS SUMMARY | 2019-01-19 15:13 | XMS REPORT | Summary of Care ---
Author Author [facility] Organization [facility] Address Unknown Phone Unavailable Encounter CK Waddell(DEEPA) [id number] Date(s): 04/17/17 - 04/21/17 [facility] [id number] [place] [address]- Discharge Disposition: Home or Self Care Attending Physician: Marcin Perez MD Admitting Physician: Marcin Perez MD Vital Signs 1 2 3 Most recent to oldest [Reference Range]: 172.72 cm (04/18/17 5:15 AM) 172.72 cm (04/17/17 6:38 PM) Height 91.409 kg (04/19/17 10:07 AM) Current Weight 98.1 DegF (04/21/17 3:00 PM) 98.0 DegF (04/21/17 11:00 AM) 98.3 DegF (04/21/17 7:52 AM) Temperature Oral [96.4-99.1 DegF] 115/74 mmHg (04/21/17 3:00 PM) 127/80 mmHg (04/21/17 11:00 AM) 143/94 mmHg *HI* (04/21/17 7:52 AM) Blood Pressure [90-140/60-90 mmHg] 18 BRMIN (04/21/17 3:00 PM) 18 BRMIN (04/21/17 11:00 AM) 16 BRMIN (04/21/17 8:55 AM) Respiratory Rate [14-20 BRMIN] 64 bpm (04/21/17 3:00 PM) 62 bpm (04/21/17 11:00 AM) 64 bpm (04/21/17 7:52 AM) Peripheral Pulse Rate [60-100 bpm] 92.5 kg (04/18/17 5:15 AM) 93.636 kg (04/17/17 6:38 PM) Weight 31.01 m2 (04/18/17 5:15 AM) 31.39 m2 (04/17/17 6:38 PM) Body Mass Index Problem List Condition Effective [...] Status codeine Active Demerol Active morphine Active sulfa drugs Active Medications Aldactone 25 mg oral tablet 25 mg=1 tab, PO, Daily, # 30 tab, 0 Refill(s), Pharmacy: [facility] [id number] Start Date: 04/21/17 Status: Ordered amLODIPine 10 mg, 2 tab, Route: PO, Drug form: TAB, Daily, Dosing Weight 93.636, kg, Start date: 04/18/17 9:00:00 CDT, Duration: 30 day, Stop date: 05/17/17 9:00:00 CDT Notes: (Same as: Norvasc) Start Date: 04/18/17 Stop Date: 04/18/17 Status: Discontinued amLODIPine 10 mg oral tablet 10 mg=1 tab, PO, Daily, 0 Refill(s) Start Date: 04/17/17 Status: Ordered Aspirin Enteric Coated 81 mg, 1 tab, Route: PO, Drug form: ECTAB, Q24H, Dosing Weight 93.636, kg, Start date: 04/18/17 0:00:00 CDT, Duration: 30 day, Stop date: 05/17/17 0:00:00 CDT Notes: Do not crush or chew.(Same As: Ecotrin) Start Date: 04/18/17 Stop Date: 04/21/17 Status: Discontinued Aspirin Enteric Coated 81 mg oral delayed release tablet 81 mg=1 tab, PO, Daily, 0 Refill(s) Start Date: 04/17/17 Status: Ordered bumetanide 1 mg oral tablet 1 mg=1 tab, PO, BID, # 60 tab, 0 Refill(s), Pharmacy: [facility] [id number] Start Date: 04/21/17 Status: Ordered Bumex 2 mg, 8 mL, Route: IVP, Drug form: INJ, Q12H, Dosing Weight 92.5, kg, Start date : 04/18/17 21:00:00 CDT, Duration: 30 day, Stop date: 05/18/17 9:00:00 CDT Notes: (Same As: Bumex) Start Date: 04/18/17 Stop Date: 04/19/17 Status: Discontinued Bumex 2 mg, 8 mL, Route: IVP, Drug form: INJ, ONCE, Dosing Weight 92.5, kg, Priority: Routine, Start date: 04/20/17 14:30:00 CDT, Stop date: 04/20/17 14:30:00 CDT Notes: (Same As: Bumex) Start Date: 04/20/17 Stop Date: 04/20/17 Status: Completed Bumex 2 mg, 8 mL, Route: IVP, Drug form: INJ, Q8H, Dosing Weight 92.5, kg, Priority: N OW, Start date: 04/19/17 20:38:00 CDT, Duration: 3 doses or times, Stop date: 12:00:00 CDT Notes: (Same As: Bumex) Start Date: 04/19/17 Stop Date: 04/20/17 Status: Completed Bumex 2 mg, Route: IVP, Q6H, Dosing Weight 92.5, kg, Start date: 04/21/17 0:00:00 CDT, Duration: 4 doses or times, Stop date: 04/21/17 18:00:00 CDT Start Date: 04/21/17 Stop Date: 04/20/17 Status: Canceled Bumex 2 mg, 8 mL, Route: IVP, Drug form: INJ, Q6H, Dosing Weight 92.5, kg, Priority: N OW, Start date: 04/20/17 18:26:00 CDT, Duration: 4 doses or times, Stop date: 12:00:00 CDT Notes: (Same As: Bumex) Start Date: 04/20/17 Stop Date: 04/21/17 Status: Completed calcium gluconate + sodium chloride 0.9% INJ 100 mL 2 gm, 20 mL, Route: IVPB, PRN, Dosing Weight 93.636, kg, PRN Abnormal Lab Result , For NON-ICU Patients Only., Start date: 04/17/17 22:08:00 CDT, Duration: 30 da y, Stop date: 05/17/17 22:07:00 CDT Notes: WASTE: F/P - Sink; E - Municipal Trash Bin Start Date: 04/17/17 Stop Date: 04/21/17 Status: Discontinued calcium gluconate + sodium chloride 0.9% INJ 150 mL 3 gm, 30 mL, Route: IVPB, Drug form: INJ, PRN, Dosing Weight 93.636, kg, PRN Abn ormal Lab Result, For NON-ICU Patients Only., Start date: 04/17/17 22:08:00 CDT, Duration: 30 day, Stop date: 05/17/17 22:07:00 CDT Notes: WASTE: F/P - Sink; E - Municipal Trash Bin Start Date: 04/17/17 Stop Date: 04/21/17 Status: Discontinued Diovan 320 mg, 2 tab, Route: PO, Drug form: TAB, QPM, Dosing Weight 92.5, kg, Start manoj e: 04/18/17 17:00:00 CDT, Duration: 30 day, Stop date: 05/17/17 17:00:00 CDT Notes: Same as Diovan Start Date: 04/18/17 Stop Date: 04/21/17 Status: Discontinued enoxaparin 40 mg, 0.4 mL, Route: SUB-Q, Drug form: INJ, [id number], Dosing Weight 93.636, kg, Start date: 04/17/17 22:00:00 CDT, Duration: 30 day, Stop date: 05/16/17 22:00: 00 CDT Notes: (Same as: Lovenox) Start Date: 04/17/17 Stop Date: 04/21/17 Status: Discontinued ergocalciferol 50,000 IntlUnit, 1 cap, Route: PO, Drug form: CAP, Daily, Dosing Weight 93.636, kg, Start date: 04/18/17 9:00:00 CDT, Duration: 3 day, Stop date: 04/20/17 9:00: 00 CDT Notes: (Same as: Vitamin D) "Do Not Crush" Start Date: 04/18/17 Stop Date: 04/20/17 Status: Completed furosemide 20 mg, 2 mL, Route: IVP, Drug form: INJ, Q12H, Dosing Weight 93.636, kg, Start d ate: 04/18/17 9:00:00 CDT, Duration: 30 day, Stop date: 05/17/17 21:00:00 CDT Notes: (Same as: Lasix) Start Date: 04/18/17 Stop Date: 04/18/17 Status: Discontinued furosemide 40 mg oral tablet 40 mg=1 tab, PO, Daily, 0 Refill(s) Start Date: 04/17/17 Stop Date: 04/21/17 Status: Discontinued furosemide 40 mg oral tablet 40 mg, 1 tab, Route: PO, Drug form: TAB, After Lunch, Dosing Weight 92.5, kg, St art date: 04/19/17 12:30:00 CDT, Duration: 30 day, Stop date: 05/18/17 12:30:00 CDT Notes: (Same as: Lasix) May cause GI upset. Give with food or milk. Start Date: 04/19/17 Stop Date: 04/19/17 Status: Discontinued hydrALAZINE 10 mg, 0.5 mL, Route: IV, Drug form: INJ, Q4H, Dosing Weight 93.636, kg, PRN Hyp ertension, Start date: 04/17/17 21:49:00 CDT, Duration: 30 day, Stop date: 05/17 21:48:00 CDT Notes: (Same as: Apresoline)Push over 5 minutes Start Date: 04/17/17 Stop Date: 04/21/17 Status: Discontinued Lasix 40 mg, 4 mL, Route: IVP, Drug form: INJ, ONCE, Dosing Weight 93.636, kg, Priorit y: STAT, Start date: 04/17/17 19:03:00 CDT, Stop date: 04/17/17 19:03:00 CDT Notes: (Same as: Lasix) MEDICATION WASTE Product Size: 40 mgProduct Was iván: ___ mg Start Date: 04/17/17 Stop Date: 04/17/17 Status: Completed Lopressor 2.5 mg, 2.5 mL, Route: IVP, Drug form: INJ, Q2H, Dosing Weight 93.636, kg, PRN T achycardia, Start date: 04/17/17 21:49:00 CDT, Duration: 30 day, Stop date: 04/20 21:48:00 CDT Notes: (Same as: Lopressor)Push over 2 minutes Start Date: 04/17/17 Stop Date: 04/21/17 Status: Discontinued LORazepam 0.5 mg, 1 tab, Route: PO, Drug form: TAB, TID, Dosing Weight 93.636, kg, PRN Anx iety, Start date: 04/17/17 21:49:00 CDT, Duration: 30 day, Stop date: 05/17/17 2 1:48:00 CDT Notes: (Same as: Ativan) Start Date: 04/17/17 Stop Date: 04/21/17 Status: Discontinued magnesium oxide 800 mg, 2 tab, Route: PO, Drug form: TAB, PRN, Dosing Weight 93.636, kg, PRN Abn ormal Lab Result, For NON-ICU Patients Only., Start date: 04/17/17 22:08:00 CDT, Duration: 30 day, Stop date: 05/17/17 22:07:00 CDT Notes: (Same as: Mag-Ox 400)Magnesium oxide [id number] elemental magnesiumDose= ____mg magnesium oxide (___mg elemental magnesium) Start Date: 04/17/17 Stop Date: 04/21/17 Status: Discontinued magnesium sulfate 2 gm, 50 mL, Route: IVPB, Drug form: INJ, PRN, Dosing Weight 93.636, kg, PRN Abn ormal Lab Result, For NON-ICU Patients Only., Start date: 04/17/17 22:08:00 CDT, Duration: 30 day, Stop date: 05/17/17 22:07:00 CDT Notes: WASTE: F/P - Sink; E - Municipal Trash Bin Start Date: 04/17/17 Stop Date: 04/21/17 Status: Discontinued magnesium sulfate 1 gm, 100 mL, Route: IVPB, Drug form: INJ, PRN, Dosing Weight 93.636, kg, PRN Ab normal Lab Result, For NON-ICU Patients Only., Start date: 04/17/17 22:08:00 CDT , Duration: 30 day, Stop date: 05/17/17 22:07:00 CDT Notes: WASTE: F/P - Sink; E - Municipal Trash Bin Start Date: 04/17/17 Stop Date: 04/21/17 Status: Discontinued metoprolol extended release 50 mg, 1 tab, Route: PO, Drug form: ERTAB, Daily, Start date: 04/18/17 9:00:00 C DT, Duration: 30 day, Stop date: 05/17/17 9:00:00 CDT Notes: (Same as: Toprol XL) May split tab, but do not crush. Start Date: 04/18/17 Stop Date: 04/21/17 Status: Discontinued metoprolol tartrate 50 mg oral tablet 50 mg=1 tab, PO, Daily, 0 Refill(s) Start Date: 04/17/17 Status: Ordered Nitrostat 0.4 mg sublingual tablet 0.4 mg, 1 tab, Route: SL, Drug form: TAB, Q5Min, Dosing Weight 93.636, kg, PRN C hest Pain, Start date: 04/17/17 21:50:00 CDT, Duration: 3 doses or times, Stop d ate: Limited # of times Notes: (Same as:Nitroquick, Nitrostat)"Do Not Crush" Sublingual tablet Start Date: 04/17/17 Stop Date: 04/21/17 Status: Discontinued potassium chloride 10 mEq, 100 mL, Route: IVPB, Drug form: INJ, PRN, Dosing Weight 93.636, kg, PRN Abnormal Lab Result, For NON-ICU Patients Only, Start date: 04/17/17 22:08:00 CD T, Duration: 30 day, Stop date: 05/17/17 22:07:00 CDT Notes: Infuse at a rate of 10 mEq/hr.(Same as: KCL) Start Date: 04/17/17 Stop Date: 04/21/17 Status: Discontinued potassium chloride 20 mEq, 1 tab, Route: PO, Drug form: ERTAB, PRN, Dosing Weight 93.636, kg, PRN A bnormal Lab Result, For NON-ICU Patients Only, Start date: 04/17/17 22:08:00 CDT , Duration: 30 day, Stop date: 05/17/17 22:07:00 CDT Notes: (Same as: K-Dur 20)"Do Not Crush" With food and full glass of water Start Date: 04/17/17 Stop Date: 04/21/17 Status: Discontinued potassium chloride 20 mEq, 15 mL, Route: NJ, Drug form: LIQ, PRN, Dosing Weight 93.636, kg, PRN Abn ormal Lab Result, For NON-ICU Patients Only, Start date: 04/17/17 22:08:00 CDT, Duration: 30 day, Stop date: 05/17/17 22:07:00 CDT Notes: (Same as: Potassium Chloride) Start Date: 04/17/17 Stop Date: 04/21/17 Status: Discontinued potassium chloride 20 mEq oral tablet, extended release 20 mEq, 1 tab, Route: PO, Drug form: ERTAB, TID, Dosing Weight 92.5, kg, Priorit y: NOW, Start date: 04/18/17 12:25:00 CDT, Duration: 30 day, Stop date: 05/18/17 9:00:00 CDT Notes: (Same as: K-Dur 20)"Do Not Crush" With food and full glass of water Start Date: 04/18/17 Stop Date: 04/19/17 Status: Discontinued potassium chloride 20 mEq oral tablet, extended release 20 mEq, 1 tab, Route: PO, Drug form: ERTAB, Daily, Dosing Weight 92.5, kg, Start date: 04/20/17 9:00:00 CDT, Duration: 30 day, Stop date: 05/19/17 9:00:00 CDT Notes: (Same as: K-Dur 20)"Do Not Crush" With food and full glass of water Start Date: 04/20/17 Stop Date: 04/21/17 Status: Discontinued potassium phosphate + sodium chloride 0.9% INJ 250 mL 30 mmol, 10 mL, Route: IVPB, PRN, Dosing Weight 93.636, kg, PRN Abnormal Lab Res ult, For NON-ICU Patients Only., Start date: 04/17/17 22:08:00 CDT, Duration: 30 day, Stop date: 05/17/17 22:07:00 CDT Notes: (Same as: K Phosphate.) 1 mMol phoshate has 1.47 mEq potassium Infuse o eleazar 4 hours Start Date: 04/17/17 Stop Date: 04/21/17 Status: Discontinued potassium phosphate + sodium chloride 0.9% INJ 250 mL 15 mmol, 5 mL, Route: IVPB, PRN, Dosing Weight 93.636, kg, PRN Abnormal Lab Resu lt, For NON-ICU Patients Only., Start date: 04/17/17 22:08:00 CDT, Duration: 30 day, Stop date: 05/17/17 22:07:00 CDT Notes: (Same as: K Phosphate.) 1 mMol phoshate has 1.47 mEq potassium Infuse o eleazar 4 hours Start Date: 04/17/17 Stop Date: 04/21/17 Status: Discontinued potassium phosphate-sodium phosphate 250 mg-280 mg-160 mg oral powder for recons titution 2 pkt, Route: PO, Drug Form: PDR/REC, Dosing Weight 93.636, kg, PRN, PRN Abnorma l Lab Result, For NON-ICU Patients Only, Start date: 04/17/17 22:08:00 CDT, Dura tion: 30 day, Stop date: 05/17/17 22:07:00 CDT Notes: (Same as: Phos-NaK) Each 1.5 gm pkt has 250mg phosphorous. Mix w/2.5oz w ater and stir. Start Date: 04/17/17 Stop Date: 04/21/17 Status: Discontinued Saline Flush 0.9% 10 ml, Route: IVP, Drug Form: INJ, Dosing Weight 93.636, kg, Q12H, Start date: 0 04/18/17 9:00:00 CDT, Duration: 30 day, Stop date: 05/17/17 21:00:00 CDT Notes: (Same as: BD Posiflush) Start Date: 04/18/17 Stop Date: 04/21/17 Status: Discontinued Saline Flush 0.9% 10 ml, Route: IVP, Drug Form: INJ, Dosing Weight 93.636, kg, PRN, PRN Line Flush , Start date: 04/17/17 22:08:00 CDT, Duration: 30 day, Stop date: 05/17/17 22:07 :00 CDT Start Date: 04/17/17 Stop Date: 04/17/17 Status: Deleted Saline Flush 0.9% 10 mL, Route: IVP, Drug Form: INJ, Dosing Weight 93.636, kg, PRN, PRN Line Flush , Start date: 04/17/17 19:03:00 CDT, Duration: 30 day, Stop date: 05/17/17 19:02 :00 CDT Notes: (Same as: BD Posiflush) Start Date: 04/17/17 Stop Date: 04/21/17 Status: Discontinued sodium phosphate + D5W 250 mL 30 mmol, 10 mL, Route: IVPB, PRN, Dosing Weight 93.636, kg, PRN Abnormal Lab Res ult, For NON-ICU Patients Only., Start date: 04/17/17 22:08:00 CDT, Duration: 30 day, Stop date: 05/17/17 22:07:00 CDT Start Date: 04/17/17 Stop Date: 04/21/17 Status: Discontinued sodium phosphate + D5W 250 mL 15 mmol, 5 mL, Route: IVPB, PRN, Dosing Weight 93.636, kg, PRN Abnormal Lab Resu lt, For NON-ICU Patients Only., Start date: 04/17/17 22:08:00 CDT, Duration: 30 day, Stop date: 05/17/17 22:07:00 CDT Start Date: 04/17/17 Stop Date: 04/21/17 Status: Discontinued valsartan 320 mg oral tablet 320 mg=1 tab, PO, Daily, # 30 tab, 0 Refill(s), Pharmacy: [facility] [id number] Start Date: 04/21/17 Status: Ordered Zofran 4 mg, 2 mL, Route: IV, Drug form: INJ, Q4H, Dosing Weight 92.5, kg, PRN as neede d for nausea/vomiting, Start date: 04/18/17 5:53:00 CDT, Duration: 30 day, Stop date: 05/18/17 5:52:00 CDT Notes: (Same as: Zofran) MEDICATION WASTE Product Size: 4 mgProduct Was iván: ___ mg Start Date: 04/18/17 Stop Date: 04/21/17 Status: Discontinued Results ELECTROLYTES 1 2 3 Most recent to oldest [Reference Range]: 137 mEq/L (04/20/17 9:15 AM) 137 mEq/L (04/19/17 6:12 AM) 137 mEq/L (04/19/17 6:12 AM) Sodium Lvl [135-145 mEq/L] 4.2 mEq/L (04/20/17 9:15 AM) 4.1 mEq/L (04/19/17 6:12 AM) 4.1 mEq/L (04/19/17 6:12 AM) Potassium Lvl [3.5-5.1 mEq/L] 96 mEq/L (04/20/17 9:15 AM) 101 mEq/L (04/19/17 6:12 AM) 101 mEq/L (04/19/17 6:12 AM) Chloride Lvl [95-109 mEq/L] 31 mEq/L (04/20/17 9:15 AM) 29 mEq/L (04/19/17 6:12 AM) 29 mEq/L (04/19/17 6:12 AM) CO2 [24-32 mEq/L] 14.2 mEq/L (04/20/17 9:15 AM) 11.1 mEq/L (04/19/17 6:12 AM) 11.1 mEq/L (04/19/17 6:12 AM) AGAP [10.0-20.0 mEq/L] CHEM PANEL 1 2 3 Most recent to oldest [Reference Range]: 1.20 mg/dL (04/20/17 9:15 AM) 1.20 mg/dL (04/19/17 6:12 AM) 1.20 mg/dL (04/19/17 6:12 AM) Creatinine Lvl [0.50-1.40 mg/dL] 42 mL/min/1.73m2 1 *NA* (04/20/17 9:15 AM) 42 mL/min/1.73m2 2 *NA* (04/19/17 6:12 AM) 42 mL/min/1.73m2 3 *NA* (04/19/17 6:12 AM) eGFR 21 mg/dL (04/20/17 9:15 AM) 21 mg/dL (04/19/17 6:12 AM) 21 mg/dL (04/19/17 6:12 AM) BUN [7-22 mg/dL] 15 (04/17/17 7:37 PM) B/C Ratio [6-25] 102 mg/dL *HI* (04/20/17 9:15 AM) 94 mg/dL (04/19/17 6:12 AM) 94 mg/dL (04/19/17 6:12 AM) Glucose Lvl [70-99 mg/dL] 6.0 mg/dL (04/17/17 11:20 PM) Uric Acid [2.5-7.0 mg/dL] 8.1 g/dL (04/18/17 7:03 AM) 8.7 g/dL *HI* (04/17/17 7:37 PM) Total Protein [6.4-8.4 g/dL] 3.0 g/dL *LOW* (04/19/17 6:12 AM) 3.8 g/dL (04/18/17 7:03 AM) 3.9 g/dL (04/17/17 7:37 PM) Albumin Lvl [3.5-5.0 g/dL] 4.3 g/dL *HI* (04/18/17 7:03 AM) 4.8 g/dL *HI* (04/17/17 7:37 PM) Globulin [2.7-4.2 g/dL] 0.9 (04/18/17 7:03 AM) 0.8 (04/17/17 7:37 PM) A/G Ratio [0.7-1.6] 8.6 mg/dL (04/20/17 9:15 AM) 8.6 mg/dL (04/19/17 6:12 AM) 8.6 mg/dL (04/19/17 6:12 AM) Calcium Lvl [8.5-10.5 mg/dL] 2.3 mg/dL *LOW* (04/19/17 6:12 AM) 3.1 mg/dL (04/17/17 11:20 PM) Phosphorus [2.5-4.5 mg/dL] 2.1 mg/dL (04/17/17 11:20 PM) Magnesium Lvl [1.8-2.4 mg/dL] 45 unit/L (04/18/17 7:03 AM) 59 unit/L (04/17/17 7:37 PM) ALT [0-65 unit/L] 30 unit/L (04/18/17 7:03 AM) 57 unit/L *HI* (04/17/17 7:37 PM) AST [0-37 unit/L] 79 unit/L (04/18/17 7:03 AM) 88 unit/L (04/17/17 7:37 PM) Alk Phos [39-136 unit/L] 2.3 mg/dL *HI* (04/18/17 7:03 AM) 1.9 mg/dL *HI* (04/17/17 7:37 PM) Bili Total [0.2-1.3 mg/dL] 0.3 mg/dL (04/18/17 7:03 AM) Bili Direct [0.0-0.3 mg/dL] 2.0 mg/dL *HI* (04/18/17 7:03 AM) Bili Indirect [0.0-1.0 mg/dL] 10.7 ng/mL *LOW* (04/17/17 11:20 PM) Vitamin D, 25-OH, Total [30.0-100.0 ng/mL] 1Result Comment: The eGFR is calculated using [...] be mul tiplied by the estimated BMI. 3Result Comment: The eGFR is calculated using [...] tiplied by the estimated BMI. CARDIAC ENZYMES 1 2 3 Most recent to oldest [Reference Range]: 112 unit/L (04/17/17 11:20 PM) 110 unit/L (04/17/17 11:20 PM) 162 unit/L (04/17/17 7:37 PM) Total CK [12-191 unit/L] 2.9 ng/mL (04/17/17 11:20 PM) 3.1 ng/mL (04/17/17 11:20 PM) 2.4 ng/mL (04/17/17 7:37 PM) CK MB [0.5-3.6 ng/mL] 2.6 *HI* (04/17/17 11:20 PM) 2.8 *HI* (04/17/17 11:20 PM) 1.5 (04/17/17 7:37 PM) CK MB Index [0.0-2.5] 0.04 ng/mL (04/17/17 11:20 PM) 0.03 ng/mL (04/17/17 11:20 PM) 0.03 ng/mL (04/17/17 7:37 PM) Troponin-I [0.00-0.40 ng/mL] 1325 pg/mL *HI* (04/17/17 7:37 PM) BNP [<=100 pg/mL] LIPIDS 1 2 3 Most recent to oldest [Reference Range]: 2.08 *LOW* (04/17/17 11:20 PM) CHD Risk [3.90-5.80] 129 mg/dL (04/17/17 11:20 PM) Chol [<=199 mg/dL] 59 mg/dL (04/17/17 11:20 PM) Trig [<=149 mg/dL] 62 mg/dL (04/17/17 11:20 PM) HDL [>=61 mg/dL] 55 mg/dL (04/17/17 11:20 PM) LDL (Calculated) [<=99 mg/dL] 12 *NA* (04/17/17 11:20 PM) VLDL SPECIAL CHEMISTRY 1 2 3 Most recent to oldest [Reference Range]: 5.6 % (04/17/17 11:20 PM) Hgb A1C [<=5.6 %] URINE AND STOOL 1 2 3 Most recent to oldest [Reference Range]: Clear (04/17/17 8:28 PM) UA Turbidity [Clear] Ltyellow *NA* (04/17/17 8:28 PM) UA Color 7.0 (04/17/17 8:28 PM) UA pH [5.0-8.0] 1.008 (04/17/17 8:28 PM) UA Spec Grav [<=1.030] Negative mg/dL *NA* (04/17/17 8:28 PM) UA Glucose [Negative mg/dL] Small *ABN* (04/17/17 8:28 PM) UA Blood [Negative] Negative mg/dL *NA* (04/17/17 8:28 PM) UA Ketones [Negative mg/dL] 30 mg/dL *ABN* (04/17/17 8:28 PM) UA Protein [Negative mg/dL] <=1.0 mg/dL *NA* (04/17/17 8:28 PM) UA Urobilinogen [0.1-1.0 mg/dL] Negative *NA* (04/17/17 8:28 PM) UA Bili [Negative] Moderate *ABN* (04/17/17 8:28 PM) UA Leuk Est [Negative] Negative (04/17/17 8:28 PM) UA Nitrite [Negative] 22 /HPF *HI* (04/17/17 8:28 PM) UA WBC [0-5 /HPF] 5 /HPF *HI* (04/17/17 8:28 PM) UA RBC [0-2 /HPF] Occasional /HPF *NA* (04/17/17 8:28 PM) UA Bacteria [None Seen /HPF] Occasional /LPF *NA* (04/17/17 8:28 PM) UA Sq Epi [Few /LPF] IMMUNOLOGY 1 2 3 Most recent to oldest [Reference Range]: 19.6 mg/dL (04/17/17 11:20 PM) Prealbumin [18.0-45.0 mg/dL] HEMATOLOGY 1 2 3 Most recent to oldest [Reference Range]: 6.3 K/CMM (04/21/17 7:44 AM) 11.4 K/CMM *HI* (04/17/17 7:37 PM) WBC [3.7-10.4 K/CMM] 5.13 M/CMM (04/21/17 7:44 AM) 5.22 M/CMM (04/17/17 7:37 PM) RBC [4.20-5.40 M/CMM] 16.4 g/dL *HI* (04/21/17 7:44 AM) 16.5 g/dL *HI* (04/17/17 7:37 PM) Hgb [12.0-16.0 g/dL] 48.1 % *HI* (04/21/17 7:44 AM) 49.3 % *HI* (04/17/17 7:37 PM) Hct [36.0-48.0 %] 93.8 fL (04/21/17 7:44 AM) 94.5 fL (04/17/17 7:37 PM) MCV [80.0-98.0 fL] 32.0 pg *HI* (04/21/17 7:44 AM) 31.5 pg *HI* (04/17/17 7:37 PM) MCH [27.0-31.0 pg] 34.1 g/dL (04/21/17 7:44 AM) 33.4 g/dL (04/17/17 7:37 PM) MCHC [32.0-36.0 g/dL] 14.1 % (04/21/17 7:44 AM) 14.4 % (04/17/17 7:37 PM) RDW [11.5-14.5 %] 189 K/CMM (04/21/17 7:44 AM) 195 K/CMM (04/17/17 7:37 PM) Platelet [133-450 K/CMM] 8.6 fL (04/21/17 7:44 AM) 9.1 fL (04/17/17 7:37 PM) MPV [7.4-10.4 fL] 85.3 % *HI* (04/17/17 7:37 PM) Segs [45.0-75.0 %] 10.0 % *LOW* (04/17/17 7:37 PM) Lymphocytes [20.0-40.0 %] 4.2 % (04/17/17 7:37 PM) Monocytes [2.0-12.0 %] 0.1 % (04/17/17 7:37 PM) Eosinophils [0.0-4.0 %] 0.4 % (04/17/17 7:37 PM) Basophils [0.0-1.0 %] 9.7 K/CMM *HI* (04/17/17 7:37 PM) Segs-Bands # [1.5-8.1 K/CMM] 1.1 K/CMM (04/17/17 7:37 PM) Lymphocytes # [1.0-5.5 K/CMM] 0.5 K/CMM (04/17/17 7:37 PM) Monocytes # [0.0-0.8 K/CMM] 14.9 seconds *HI* (04/17/17 7:37 PM) PT [12.0-14.7 seconds] 1.15 (04/17/17 7:37 PM) INR [0.85-1.17] 30.7 seconds (04/17/17 7:37 PM) PTT [22.9-35.8 seconds] Immunizations No data available for this section Procedures Procedure Date Related Diagnosis Body Site Cardiac pacemaker procedure Tonsillectomy Social History Social History Type Response Alcohol Never, 0 Drinks/Episode average. 0.00 Drinks/Episode maximum. Alcohol use interferes with work or home: No. Drinks more than intended: No. Others hurt by drinking: No. Ready to change: No. Household alcohol concerns: No. Smoking Status Never smoker; Tobacco use per day: 0; Number of years: 0; Total pack years: 0; Started at age: 2.0; Stopped at age: 2; Previous treatment: None; Ready to change: No; Concerns about tobacco use in household: No; Exposure to Tobacco Smoke None; Cigarette Smoking Last 365 Days No; Reg Smoking Cessation Counseling No Assessment and Plan Extracted from: Title: Discharge Summary * Author: Marcin Perez MD Date: 04/21/17 Discharge Information Disposition to home Condition stable Medications: See med reconciliation form Diet: Low-sodium diet Discharge Plan Follow-up with your primary care physician 1 week, art consultant in 2 weeks In the event of any worsening symptoms patient was a come back to the ED for further evaluation Discharge summary took greater than 35 minutes Extracted from: Title: Clinical Document Author: Marcin Perez MD Date: 04/20/17 Progress Note SUBJECTIVE: Patient is doing much better today with no other complaints. Still on nasal cannula trying to wean off of O2 Patient seen and evaluated at bedside. No overnight events. Denies chest pain, nausea, vomiting, diarrhea, headache, lightheadness, abdomen pain or dizziness. OBJECTIVE: VitalsTmp(F)[id number] 04/20 15:[id number]--- 04/20 11:[id number]--- 04/20 08:31 1496 2.5L/m 04/20 07:[id number]--- 04/20 04:[id number]/[id number]--- 24 Hr Tmax: 98.9F (37.17c) at 04/19 20:00Vital Signs are the last 5 in the past 48 hours. I&ORecordInOutBal 04/324hr Tot 978 900 78 04/224hr Tot 874 [id number] Labs (Last four charted values) WBC H 11.4(APR 17) Hgb H 16.5(APR 17) Hct H 49.3(APR 17) Plt 195(APR 17) Na 137(APR 20)137(APR 19)137(APR 19)L 134(APR 18) K 4.2(APR 20)4.1(APR 19)4.1(APR 19)L 3.4(APR 18) CO2 31(APR 20)29(APR 19)29(APR 19)27(APR 18) Cl 96(APR 20)101(APR 19)101(APR 19)L 94(APR 18) Cr 1.20(APR 20)1.20(APR 19)1.20(APR 19)1.10(APR 18) BUN 21(APR 20)21(APR 19)21(APR 19)17(APR 18) Glucose Random H 102(APR 20)94(APR 19)94(APR 19)H 106(APR 18) Mg 2.1(APR 17) Phos L 2.3(APR 19)3.1(APR 17) Ca 8.6(APR 20)8.6(APR 19)8.6(APR 19)9.0(APR 18) PT H 14.9(APR 17) INR 1.15(APR 17) PTT 30.7(APR 17) Troponin 0.04(APR 17)0.03(APR 17)0.03(APR 17) CK MB 3.1(APR 17)2.9(APR 17)2.4(APR 17) Total CK 112(APR 17)110(APR 17)162(APR 17) Medications (26) Active Scheduled: (7) aspirin 81 mg ECT 81 mg 1 tab, PO, Q24H bumetanide 2 mg, IVP, Q6H enoxaparin 40 mg/0.4 ml INJ 40 mg 0.4 mL, SUB-Q, [id number] metoprolol succinate 50 mg ERT 50 mg 1 tab, PO, Daily potassium chloride 20 mEq ERT 20 mEq 1 tab, PO, Daily sodium chloride 0.9% 10 ml flush syr BD 10 ml, IVP, Q12H valsartan 160 mg tab 320 mg 2 tab, PO, QPM Continuous: (0) PRN: (19) calcium gluconate 100mg/ml 10ml VL + sodium chloride 0.9% INJ 100 mL 2 gm 20 mL, IVPB, PRN calcium gluconate 100mg/ml 10ml VL + sodium chloride 0.9% INJ 150 mL 3 gm 30 mL, IVPB, PRN hydrALAZINE 20 mg/1 ml VL 10 mg 0.5 mL, IV, Q4H LORazepam 0.5 mg TAB 0.5 mg 1 tab, PO, TID magnesium oxide (242 mg elemental) tab 800 mg 2 tab, PO, PRN magnesium sulfate 1gm/100ml D5W premix 1 gm 100 mL, IVPB, PRN magnesium sulfate 2 gm/H20 50ml soln 2 gm 50 mL, IVPB, PRN metoprolol 5 mg/5 ml INJ 2.5 mg 2.5 mL, IVP, Q2H nitroglycerin 0.4 mg TAB 25's btl 0.4 mg 1 tab, SL, Q5Min ondansetron 4 mg/2ml INJ VL 4 mg 2 mL, IV, Q4H potassium chloride 10 mEq/100 ml PB 10 mEq 100 mL, IVPB, PRN potassium chloride 20 mEq ERT 20 mEq 1 tab, PO, PRN potassium chloride 20mEq/15ml LIQ ud 20 mEq 15 mL, NJ, PRN potassium phosphate 3mmol/1ml 15ml VL + sodium chloride 0.9% INJ 250 mL 15 mmol 5 mL, IVPB, PRN potassium phosphate 3mmol/1ml 15ml VL + sodium chloride 0.9% INJ 250 mL 30 mmol 10 mL, IVPB, PRN potassium phosphate-sodium phosphate 1.5 gm pkt 2 pkt, PO, PRN sodium chloride 0.9% 10 ml flush syr BD 10 mL, IVP, PRN sodium phosphate 3 mmol/1 ml 15 ml vial + D5W 250 mL 15 mmol 5 mL, IVPB, PRN sodium phosphate 3 mmol/1 ml 15 ml vial + D5W 250 mL 30 mmol 10 mL, IVPB, PRN PHYSICAL EXAM: General: NAD, alert and oriented x3 HEENT: normacephalic, atraumatic, PERRLA, EOMI, supple w/ good ROM, normal pharynx Pulm: CTA B/L no w/r/r/c, on nasal cannula CV: +S1, +S2 no m/r/g, RRR, good cap refill, No JVD, no carotid bruits Abd: ND, NTTP, no rebound or guarding, BS+ Skin: intact, warm and dry, no rashes, 3+ pedal edema bilateral lower extremities Musculoskeletal: 5/5 strength, normal range of motion, no swollen joints Neuro: alert and oriented x3, CN 2-12 intact Psychiatry: good judgment and insight Extremities: no edema, cyanosis or clubbing : has cassandra 2D echo: Conclusions 1) MILD LV DIASTOLIC DYSFUNCTION WITH MILD LVH 2) NORMAL LV SYSTOLIC FUNCTION WITH NORMAL WALL MOTION 3) EJECTION FRACTION 54% 4) ALL FOUR CARDIAC CHAMBERS NORMAL SIZE 5) MILDLY CALCIFIED AORTIC VALVE AND ANNULUS WITH TRACE INSUFFICIENCY 6) MILD MITRAL VALVE INSUFFICIENCY 7) MILD TRICUSPID VALVE INSUFFICIENCY 8) NO VALVULAR STENOSIS 9) MILD PA SYSTOLIC PRESSURE ELEVATION PASP 48.23 MMHG 10) DEVICE LEAD IN RIGHT HEART 11) NO PERICARDIAL EFFUSION, THROMBI, OR VEGETATIONS 12) NO SEPTAL DEFECTS. CT angios the chest: IMPRESSION: 1. No pulmonary embolism. 2. Mild [...] dysfunction. 5. Moderate subcarinal mediastinal adenopathy, nonspecific. ASSESSMENT AND PLAN: 1. Acute exacerbation of CHF with diastolic dysfunction Bumex 2 mg IV every 8 hours 3 doses, cardiology consulted clear to discharge home, monitor electrolytes, 2D echo: Report above 04/21: Increase Bumex 2 mg IV every 6 hours 4 doses, wean off of nasal cannula 2. Hypertension stable, continue same home medications 3. Acute respiratory failure/hypoxemia weaned off of high flow now on nasal cannula, continue IV diuresis 04/21: Currently on nasal cannula, weaned to off 4. Prophylaxis: Lovenox, Pepcid 5. Fluid electrolytes nutrients low-sodium diet, no IV fluids 6. PT/OT- eval and treat Deposition: Inpatient, cardiology consulted Likely discharge home tomorrow if patient is breathing well off of nasal cannula and edema is improved Extracted from: Title: Clinical Document Author: Cassandra Olea Date: 04/18/17 [facility] Cardiology Consultation Report PCP DR ALINE MCMAHAN [employer] DR NAWAF GEORGES DO1930 - 86 YRS OLD Reason for consult: DYSPNEA - POSSIBLE CHF Evaluation: HPI: 86 YR OLD PATIENT OF DR NAWAF GEORGES - LAST SEEN IN OFFICE FOR PACER ,[facility], 03/18/2017 - RECORD BROUGHT & IN CHART WAS ADMITTED FOR SOB ONSET ABOUT 4 AM DID ADMITT TO FREQUENT URINATION BUT NO FEVER, CHILLS OR BACK PAIN PSHX [facility] PACER CHECKED 03/18/17 TONSILS SOCIAL NON SMOKER NON DRINKER FMLY HX NO CAD NO DIABETES ALLERGIES MORPHINE Vital signs: HR=59 , IP=568 / 95 , RR=24 PEXAM VS NOTED GENERAL: in no apparent distress at this time. HEENT: EOMI NECK: supple, no jugular venous distention, no masses, no bruits CARDIOVASCULAR: RRR s1 and s2 present, no murmurs, rubs or gallops LUNGS: poor inspiratory effort, few rales, tachypneic GASTROINTESTINAL: soft, non-tender, non-distended positive bowel sounds in all four quadrants, no fluid wave appreciated EXTREMITIES: bilateral stable 4+ LE pitting edema. symmetric, pulses intact. NEUROLOGICAL: intact, no gross deficits noted SKIN: warm, no erythema, ecchymoses, purpura or petechiae, no jaundice, no diaphoresis CARDIAC Lab Data: LDL=55 , TroponinT=, CPK-MB=2.9 , QFC=7306 EKG: VENTRICULAR PACED 63 BPM Current Echocardiogram: PENDING A/P ACUTE CHF EXACERBATION HYPOXEMIC RESPIRATORY FAILURE AFIB H/O CVA HTN SINUS BRADYCARDIA Recommended Plan of Care: ECHO CARDIOGM NO NEED TO CHECK PACER DONE IN OFFICE 03/18/2017 (2) Therapies Recommended: DIURESE CONTINUE XARELTO FOR AFIB FLUID RESTRICT OBJECTIVE ECHO VitalsTmp(F)Tmp(C)XsagfMHPIFFjlqzIXIfU2NND5MDTQ7 04/18 09:16 66 04/18 08:0698.536.06xyav257/77---[id number]------ 04/18 04:0098.536.35geyc000/93---62--99------ 04/18 02:34 95 65%--- 04/18 00:0098.536.71gxcs395/86---65--93------ 24 Hr Tmax: 98.5F (36.94c) at 04/18 08:06Vital Signs are the last 5 in the past 48 hours. 24 Hr Tmin: 98.1F (36.72c) at 04/17 18:38Weights are the last 5 in 60 days, plus initial. DateWt(kg)Wt(lb)Ht(cm)Ht(in)MethodBMI 04/18 92.50 203.68543.72 68.00Measured 31.0 04/17 (initial) 93.64 206.00Measured 31.4 72.72 68.00Stated Most Recent Scores: 04/18/17Pain Intensity NRS (0-10)0 04/18/17Glasgow Coma Score15 04/17/17Johns Rahman Fall Score13 04/17/17Braden Score20 Lines, Tubes, and Drains: 04/17/2017 18:54 Peripheral Lines: Hand Left 20 gauge Over the needle catheter 04/17/2017 18:54 Peripheral Lines: Antecubital Right 18 gauge Over the needle catheter (no surgical procedures documented) I&ORecordInOutBal 04/124hr Tot 2 0 2 03/3024hr Tot 242 5912-5654 24hr Labs 04/18 0703 Glucose Vgd342 H BUN17 Creatinine Lvl1.10 Sodium Qbv384 L Potassium Lvl3.4 L Chloride Lvl94 L CO227 AGAP16.4 Calcium Lvl9.0 eGFR46 Total Protein8.1 Albumin Lvl3.8 Bili Total2.3 H Bili Direct0.3 Bili Indirect2.0 H Alk Phos79 AST30 ALT45 Globulin4.3 H A/G Ratio0.9 04/17 2320 Hgb A1C5.6 Total CK112 Troponin-I0.04 Total CK110 Zmxv185 Trig59 HDL62 LDL (Calculated)55 VLDL12 CHD Risk2.08 L Magnesium Lvl2.1 Phosphorus3.1 Troponin-I0.03 Uric Acid6.0 CK MB3.1 CK MB Index2.8 H CK MB2.9 CK MB Index2.6 H TSH0.821 T3 Hcmmhp35 T410.2 FTI3.7 Fkxjyntdns03.6 04/17 2028 UA ColorLtyellow UA TurbidityClear UA Spec Grav1.008 UA pH7.0 UA Otukqap83 UA GlucoseNegative UA KetonesNegative UA BiliNegative UA BloodSmall UA Urobilinogen<=1.0 UA NitriteNegative UA Leuk EstModerate UA RBC5 H UA WBC22 H UA BacteriaOccasional UA Sq EpiOccasional 04/17 193 Sodium Rkh791 L Potassium Lvl4.4 Chloride Lvl96 CO227 AGAP14.4 Glucose Ftt558 H Creatinine Lvl1.20 BUN18 B/C Ratio15 Total Protein8.7 H Albumin Lvl3.9 Globulin4.8 H A/G Ratio0.8 Calcium Lvl8.9 ALT59 AST57 H Alk Phos88 Bili Total1.9 H eGFR42 Total CK162 Troponin-I0.03 CK MB2.4 CK MB Index1.5 SPE1413 H WBC11.4 H RBC5.22 Hgb16.5 H Hct49.3 H MCV94.5 MCH31.5 H MCHC33.4 RDW14.4 Syolodcr578 MPV9.1 Segs85.3 H Monocytes4.2 Giggusnogti98.0 L Eosinophils0.1 Basophils0.4 Segs-Bands #9.7 H Lymphocytes #1.1 Monocytes #0.5 PT14.9 H INR1.15 PTT30.7 Scheduled Meds (7): amLODIPine 10 mg PO Daily [eMAR Schedule: (04/18/17) 09:00] [Future Dose: 04/19/17 09:00] aspirin (Aspirin Enteric Coated) 81 mg PO Q24H [Last Rescheduled Dt/Tm: 04/18/17 0:00:00 CDT] [eMAR Schedule: (04/18/17) 00:00] [Future Dose: 04/19/17 00:00] enoxaparin 40 mg SUB-Q [id number] [Future Dose: 04/18/17 22:00] ergocalciferol 50,000 IntlUnit PO Daily [eMAR Schedule: (04/18/17) 09:00] [Future Dose: 04/19/17 09:00] furosemide 20 mg IVP Q12H [eMAR Schedule: (04/18/17) 09:00] [Future Dose: 04/18/17 21:00] metoprolol (metoprolol extended release) 50 mg PO Daily [eMAR Schedule: (04/18/17) 09:00] [Future Dose: 04/19/17 09:00] sodium chloride (Saline Flush 0.9%) 10 ml IVP Q12H [eMAR Schedule: (04/18/17) 09:00] [Future Dose: 04/18/17 21:00] Unscheduled Meds: None PRN Meds (19): LORazepam 0.5 mg PO TID calcium gluconate + sodium chloride 0.9% INJ 100 mL 2 gm IVPB PRN 240 ml/hr calcium gluconate + sodium chloride 0.9% INJ 150 mL 3 gm IVPB PRN 360 ml/hr hydrALAZINE 10 mg IV Q4H magnesium oxide 800 mg PO PRN magnesium sulfate 1 gm IVPB PRN 100 ml/hr magnesium sulfate 2 gm IVPB PRN 25 ml/hr metoprolol (Lopressor) 2.5 mg IVP Q2H nitroglycerin (Nitrostat 0.4 mg sublingual tablet) 0.4 mg SL Q5Min ondansetron (Zofran) 4 mg IV Q4H potassium chloride 20 mEq PO PRN potassium chloride 20 mEq NJ PRN potassium chloride 10 mEq IVPB PRN 100 ml/hr potassium phosphate + sodium chloride 0.9% INJ 250 mL 15 mmol IVPB PRN 63.75 ml/hr potassium phosphate + sodium chloride 0.9% INJ 250 mL 30 mmol IVPB PRN 65 ml/hr potassium phosphate-sodium phosphate (potassium phosphate-sodium phosphate 250 mg-280 mg-160 mg oral powder for reconstitution) 2 pkt PO PRN sodium chloride (Saline Flush 0.9%) 10 mL IVP PRN sodium phosphate + D5W 250 mL 15 mmol IVPB PRN 63.75 ml/hr sodium phosphate + D5W 250 mL 30 mmol IVPB PRN 65 ml/hr One Time Meds (1): (Completed) furosemide (Lasix) 40 mg IVP ONCE Continuous Infusions: None Type of Bladder Control: Voluntary Type of Urinary Elimination: Continent
--- OUTSIDE RECORDS SUMMARY | 2019-01-19 15:14 | XMS REPORT ---
Author Author [facility] Address Unknown Phone Unavailable Care Team Providers Care Wood Grinder Name Role Phone QUINTON UY Unavailable Unavailable Problems This patient has no known problems. Allergies, Adverse Reactions, Alerts This patient has no known allergies or adverse reactions. Medications This patient has no known medications. Results Test Description Test Time Test Comments Text Results Atomic Results Result Comments ABDOMEN-1VIEW (KUB) 2018-07-23 15:26:00 [place] [address] Patient Name: GRAZYNA WREN MR #: [id number] : 1930 Age/Sex: 87/F Req #: [id number] Adm Physician: Ordered by: QUINTON YU MD Report #: [id number] Location: US Room/Bed: Procedure: [id number] DX/ABDOMEN-1VIEW (KUB) Exam Date: 07/23/18 Exam Time: 1500 REPORT STATUS: Signed Exam: KUB - Two Views Clinical History: UTI Comparison: Same day bilateral renal ultrasound. Findings: Bowel gas partially obscures visualization of the bilateral kidneys. No evidence of stone overlying the urinary system. Nonobstructive bowel gas pattern with moderate retained stool. No acute bony abnormality. 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 Impression: No acute radiographic abnormality. No radiographic evidence of urinary stone. Signed by: Dr. Maldonado Monahan MD on 07/23/2018 3:29 PM Dictated By: MALDONADO MONAHAN MD [id number] Transcribed By: SUE on 07/23/18 152 COPY TO: QUINTON YU MD RENAL RETROPERITONEAL COMP 2018-07-23 14:59:00 [place] [address] Patient Name: GRAZYNA WREN MR #: [id number] : 1930 Age/Sex: 87/F Req #: [id number] Adm Physician: Ordered by: QUINTON YU MD Report #: [id number] Location: Room/Bed: Procedure: [id number] US/US RENAL RETROPERITONEAL COMP Exam Date: Exam Time: REPORT STATUS: Signed EXAM: Renal Ultrasound INDICATION: UTI COMPARISON: None TECHNIQUE: Transverse and longitudinal images of the kidneys and bladder were obtained. FINDINGS: Right Kidney: Length: Measures up to 10.2 cm Appearance: Normal echogenicity. Collecting system: No hydronephrosis Stones: None Cyst/Mass: None Left Kidney: Length: Measures up to 10.6 cm Appearance: Normal echogenicity. Collecting system: No hydronephrosis Stones: None Cyst/Mass: None Bladder: Unremarkable in appearance. Bilateral ureteral jets are seen. IMPRESSION: Unremarkable bilateral renal ultrasound. Signed by: Dr. Maldonado Monahan MD on 07/23/2018 3:01 PM Dictated By: MALDONADO MONAHAN MD 1501 Transcribed By: SUE on 07/23/18 150 COPY TO: QUINTON YU MD
--- OUTSIDE RECORDS SUMMARY | 2019-01-19 15:14 | XMS REPORT | Summary of Care ---
Author Organization Unknown Address Unknown Phone Unavailable Encounter [facility](DEEPA) [id number] Date(s): 06/12/14 - 07/04/14 [facility] Discharge Disposition: Home Physician Attending: Earnest Azul MD Physician Admitting: Earnest Azul MD Reason for Visit STROKE Vital Signs 1 2 3 Most recent to oldest [Reference Range]: 172.72 cm (06/12/14 11:18 PM) Height 98.4 DegF (07/04/14 8:53 AM) 97.8 DegF (07/03/14 7:31 PM) 98 DegF (07/03/14 5:00 PM) Temperature Oral [96.4-99.1 DegF] 117 mmHg (07/04/14 8:53 AM) 131 mmHg (07/04/14 5:41 AM) 129 mmHg (07/03/14 7:31 PM) Systolic Blood Pressure [90-140 mmHg] 79 mmHg (07/04/14 8:53 AM) 91 mmHg *HI* (07/04/14 5:41 AM) 83 mmHg (07/03/14 7:31 PM) Diastolic Blood Pressure [60-90 mmHg] 18 BRMIN (07/04/14 8:53 AM) 16 BRMIN (07/03/14 7:31 PM) 18 BRMIN (07/03/14 5:00 PM) Respiratory Rate [14-20 BRMIN] 66 bpm (07/04/14 8:53 AM) 69 bpm (07/04/14 5:41 AM) 69 bpm (07/03/14 7:31 PM) Peripheral Pulse Rate [60-100 bpm] 94.773 kg (06/12/14 11:18 PM) Weight 31.77 m2 (06/12/14 11:18 PM) Body Mass Index Problem List Condition Effective Dates Status Health Status Informant Atrial Active fibrillation(Confirm ed) Bradycardia, severe Active sinus(Confirmed) Hemiparesis, Active right(Confirmed) HTN Active (hypertension)(Confi rmed) 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 (Same as: Tylenol) Start Date: 06/13/14 Stop Date: 07/04/14 Status: Discontinued acetaminophen-hydrocodone 325 mg-5 mg oral tablet 1 tab, Route: PO, Drug Form: TAB, Dosing Weight 95.455, kg, Q4H, PRN Pain, Start date: 06/12/14 23:30:00, Duration: 30 day, Stop date: 07/12/14 23:29:00 Notes: (Same as: [place] 325/5) Do not exceed 4gm/day of acetaminophen. Start Date: 06/12/14 Stop Date: 06/19/14 Status: Discontinued amLODIPine 5 mg oral tablet 5 mg=1 tab, PO, Daily, # 30 tab, 0 Refill(s) Start Date: 07/04/14 Status: Ordered apixaban 2.5 mg oral tablet 5 mg=2 tab, PO, BID, # 60 tab, 0 Refill(s) Start Date: 07/04/14 Status: Ordered aspirin 81 mg tablet, enteric coated 81 mg, 1 tab, Route: PO, Drug form: ECTAB, Daily, Dosing Weight 95.455, kg, Star t date: 06/13/14 9:00:00, Duration: 30 day, Stop date: 07/12/14 9:00:00 Notes: Do not crush or chew.(Same As: Ecotrin) Start Date: 06/13/14 Stop Date: 07/04/14 Status: Discontinued aspirin 81 mg tablet, enteric coated 81 mg=1 tab, PO, Daily, # 100 tab, 0 Refill(s) Start Date: 07/04/14 Status: Ordered boudreaus butt paste boudreaus butt paste, 1 terell, Route: TOP, Q12H, 06/29/14 9:00:00, Duration: 30 da y, Stop date: 07/28/14 21:00:00 Start Date: 06/29/14 Stop Date: 06/29/14 Status: Deleted Cipro 500 mg, 1 tab, Route: PO, Drug form: TAB, [id number], Dosing Weight 94.773, kg, Sta rt date: 06/21/14 18:00:00, Duration: 5 day, Stop date: 06/26/14 6:00:00 Notes: May interfere w/enteral feedings - Take 1 hr before or 2 hrs after anta cids, dairy pdt & minerals. On empty stomach. Start Date: 06/21/14 Stop Date: 06/26/14 Status: Completed Cipro 500 mg, 1 tab, Route: PO, Drug form: TAB, [id number], Dosing Weight 95.455, kg, Sta rt date: 06/13/14 4:00:00, Duration: 30 day, Stop date: 07/12/14 16:00:00 Notes: May interfere w/enteral feedings - Take 1 hr before or 2 hrs after anta cids, dairy pdt & minerals. On empty stomach. Start Date: 06/13/14 Stop Date: 06/15/14 Status: Discontinued cloNIDine 0.1 mg oral tablet 0.1 mg, 1 tab, Route: PO, Drug form: TAB, Q12H, Dosing Weight 94.773, kg, PRN El evated BP, Start date: 06/15/14 21:00:00, Stop date: 07/15/14 9:00:00, SBP >180 Notes: (Same As: Catapres) Start Date: 06/15/14 Stop Date: 06/24/14 Status: Discontinued cloNIDine 0.3 mg/24 hr transdermal film, extended release 1 patch, Route: TOP, Drug Form: ERFILM, Dosing Weight 95.455, kg, Q7D, Start manoj e: 06/19/14 9:00:00, Duration: 30 day, Stop date: 07/17/14 9:00:00 Notes: Patch delivers 0.3 mg/24 hours; Patch is applied weekly. [id number]. "Remove old patch before application of new patch" Start Date: 06/19/14 Stop Date: 06/15/14 Status: Canceled Compression Stockings 1 ea, Route: TOP, Dosing Weight 94.773, kg, Daily, Start date: 06/13/14 9:00:00 Start Date: 06/13/14 Stop Date: 06/17/14 Status: Discontinued Dulcolax Laxative 10 mg, 1 supp, Route: AK, Drug form: SUPP, Daily, Dosing Weight 95.455, kg, PRN Constipation, Start date: 06/12/14 23:28:00, Duration: 30 day, Stop date: 23:27:00 Notes: (Same As: Dulcolax, [place]-Lax) Start Date: 06/12/14 Stop Date: 07/04/14 Status: Discontinued Eliquis 5 mg, 2 tab, Route: PO, Drug form: TAB, BID, Dosing Weight 95.455, kg, Start manoj e: 06/13/14 9:00:00, Duration: 30 day, Stop date: 07/12/14 17:00:00 Notes: Same as: Eliquis Start Date: 06/13/14 Stop Date: 07/04/14 Status: Discontinued ergocalciferol 50,000 intl units oral capsule 50,000 IntlUnit=1 cap, PO, qWeek, # 3 cap, 0 Refill(s) Start Date: 07/04/14 Status: Ordered furosemide 40 mg oral tablet 40 mg, 1 tab, Route: PO, Drug form: TAB, ONCE, Dosing Weight 94.773, kg, Start d ate: 06/28/14 3:40:00, Stop date: 06/28/14 3:40:00 Notes: (Same as: Lasix) May cause GI upset. Give with food or milk. Start Date: 06/28/14 Stop Date: 06/28/14 Status: Completed lactulose 10 g/15 mL oral syrup 10 gm, 15 mL, Route: PO, Drug Form: SYRP, Dosing Weight 95.455, kg, BID, Start d ate: 06/13/14 9:00:00, Duration: 30 day, Stop date: 07/12/14 17:00:00 Notes: (Same as:Chronulac) Start Date: 06/13/14 Stop Date: 07/04/14 Status: Discontinued lactulose 10 g/15 mL oral syrup 10 gm=15 mL, PO, BID, # 300 mL, 0 Refill(s) Start Date: 07/04/14 Status: Ordered Lasix 40 mg oral tablet 40 mg, 1 tab, Route: PO, Drug form: TAB, Daily, Dosing Weight 94.773, kg, Start date: 07/04/14 9:00:00, Duration: 30 day, Stop date: 08/02/14 9:00:00 Notes: (Same as: Lasix) May cause GI upset. Give with food or milk. Start Date: 07/04/14 Stop Date: 07/04/14 Status: Discontinued Lasix 40 mg oral tablet 40 mg, 1 tab, Route: PO, Drug form: TAB, Daily, Dosing Weight 94.773, kg, Start date: 06/28/14 9:00:00, Duration: 30 day, Stop date: 07/27/14 9:00:00 Notes: (Same as: Lasix) May cause GI upset. Give with food or milk. Start Date: 06/28/14 Stop Date: 06/30/14 Status: Discontinued Lasix 40 mg oral tablet 40 mg, 1 tab, Route: PO, Drug form: TAB, ONCE, Dosing Weight 94.773, kg, Priorit y: NOW, Start date: 06/20/14 19:14:00, Stop date: 06/20/14 19:14:00 Notes: (Same as: Lasix) May cause GI upset. Give with food or milk. Start Date: 06/20/14 Stop Date: 06/20/14 Status: Completed Lasix 40 mg oral tablet 20 mg, 1 tab, Route: PO, Drug form: TAB, Daily, Dosing Weight 94.773, kg, Start date: 06/21/14 9:00:00, Stop date: 07/20/14 9:00:00 Notes: (Same as: Lasix) May cause GI upset. Give with food or milk. Start Date: 06/21/14 Stop Date: 06/28/14 Status: Discontinued Lasix 40 mg oral tablet 40 mg=1 tab, PO, Daily, # 30 tab, 0 Refill(s) Start Date: 07/04/14 Status: Ordered Lasix 40 mg oral tablet 40 mg, 1 tab, Route: PO, Drug form: TAB, BID, Dosing Weight 94.773, kg, Start da te: 06/30/14 17:00:00, Duration: 30 day, Stop date: 07/30/14 9:00:00 Notes: (Same as: Lasix) May cause GI upset. Give with food or milk. Start Date: 06/30/14 Stop Date: 07/03/14 Status: Discontinued Lopressor 25 mg, 1 tab, Route: PO, Drug form: TAB, Q6H, Dosing Weight 95.455, kg, Start da te: 06/13/14 0:00:00, Duration: 30 day, Stop date: 07/12/14 18:00:00 Notes: (Same as: Lopressor) Start Date: 06/13/14 Stop Date: 06/15/14 Status: Discontinued metoprolol tartrate 25 mg, 1 tab, Route: PO, Drug form: TAB, [id number], Dosing Weight 94.773, kg, Star t date: 06/15/14 18:00:00, Duration: 30 day, Stop date: 07/15/14 6:00:00 Notes: (Same as: Lopressor) Start Date: 06/15/14 Stop Date: 07/04/14 Status: Discontinued metoprolol tartrate 25 mg oral tablet 25 mg=1 tab, PO, [id number], # 60 tab, 0 Refill(s) Start Date: 07/04/14 Status: Ordered Norvasc 5 mg, 1 tab, Route: PO, Drug form: TAB, Daily, Dosing Weight 95.455, kg, Start d ate: 06/13/14 9:00:00, Duration: 30 day, Stop date: 07/12/14 9:00:00 Notes: (Same as: Norvasc) Start Date: 06/13/14 Stop Date: 07/04/14 Status: Discontinued potassium chloride 40 mEq, 2 tab, Route: PO, Drug form: ERTAB, ONCE, Dosing Weight 94.773, kg, Star t date: 07/02/14 10:00:00, Stop date: 07/02/14 10:00:00 Notes: (Same as: K-Dur 20)"Do Not Crush" With food and full glass of water Start Date: 07/02/14 Stop Date: 07/02/14 Status: Completed potassium chloride 20 mEq oral tablet, extended release 20 mEq, 1 tab, Route: PO, Drug form: ERTAB, Daily, Dosing Weight 94.773, kg, Sta rt date: 07/03/14 9:00:00, Duration: 30 day, Stop date: 08/01/14 9:00:00 Notes: (Same as: K-Dur 20)"Do Not Crush" With food and full glass of water Start Date: 07/03/14 Stop Date: 07/04/14 Status: Discontinued potassium chloride 20 mEq oral tablet, extended release 20 mEq=1 tab, PO, Daily, # 30 tab, 0 Refill(s) Start Date: 07/04/14 Status: Ordered Saline Flush 0.9% 5 ml, Route: IVP, Drug Form: INJ, Dosing Weight 94.773, kg, PRN, PRN Line Flush, Start date: 06/13/14 8:18:00, Duration: 30 day, Stop date: 07/13/14 8:17:00 Notes: (Same as: BD Posiflush) Start Date: 06/13/14 Stop Date: 06/21/14 Status: Discontinued Saline Flush 0.9% 5 ml, Route: IVP, Drug Form: INJ, Dosing Weight 94.773, kg, Q12H, Start date: 9:00:00, Duration: 30 day, Stop date: 07/12/14 21:00:00 Notes: (Same as: BD Posiflush) Start Date: 06/13/14 Stop Date: 06/21/14 Status: Discontinued trazodone 50 mg, 1 tab, Route: PO, Drug form: TAB, Bedtime, Dosing Weight 95.455, kg, PRN Insomnia, Start date: 06/13/14 8:18:00, Duration: 30 day, Stop date: 07/13/14 8: 17:00 Notes: (Same As: Desyrel) Start Date: 06/13/14 Stop Date: 07/04/14 Status: Discontinued Tylenol 650 mg, 2 tab, Route: PO, Drug form: TAB, Q4H, Dosing Weight 95.455, kg, PRN Dyana n, Start date: 06/12/14 23:28:00, Duration: 30 day, Stop date: 07/12/14 23:27:00 Notes: Do not exceed 4 gm/day. (Same as: Tylenol) Start Date: 06/12/14 Stop Date: 07/04/14 Status: Discontinued Vitamin D 50,000 IntlUnit, 1 cap, Route: PO, Drug form: CAP, qWeek, Dosing Weight 94.773, kg, Start date: 06/19/14 15:00:00, Duration: 5 doses or times, Stop date: 9:00:00 Notes: (Same as: Vitamin D) "Do Not Crush" Start Date: 06/19/14 Stop Date: 07/04/14 Status: Discontinued zinc oxide topical 1 appl, Route: TOP, Q12H, Drug form: OINT, Start date: 06/29/14 9:00:00, Duratio n: 30 day, Stop date: 07/28/14 21:00:00 Start Date: 06/29/14 Stop Date: 07/04/14 Status: Discontinued Results ELECTROLYTES 1 2 3 Most recent to oldest [Reference Range]: 140 mEq/L (07/03/14 6:30 AM) 139 mEq/L (07/02/14 6:20 AM) 142 mEq/L (06/29/14 6:23 AM) Sodium Lvl [135-145 mEq/L] 3.3 mEq/L *LOW* (07/03/14 6:30 AM) 3.3 mEq/L *LOW* (07/02/14 6:20 AM) 3.9 mEq/L (06/29/14 6:23 AM) Potassium Lvl [3.5-5.1 mEq/L] 100 mEq/L (07/03/14 6:30 AM) 102 mEq/L (07/02/14 6:20 AM) 102 mEq/L (06/29/14 6:23 AM) Chloride Lvl [95-109 mEq/L] 32 mEq/L (07/03/14 6:30 AM) 30 mEq/L (07/02/14 6:20 AM) 33 mEq/L *HI* (06/29/14 6:23 AM) CO2 [24-32 mEq/L] 11.3 mEq/L (07/03/14 6:30 AM) 10.3 mEq/L (07/02/14 6:20 AM) 10.9 mEq/L (06/29/14 6:23 AM) AGAP [10.0-20.0 mEq/L] CHEM PANEL 1 2 3 Most recent to oldest [Reference Range]: 1.1 mg/dL (07/03/14 6:30 AM) 1.1 mg/dL (07/02/14 6:20 AM) 1.0 mg/dL (06/29/14 6:23 AM) Creatinine Lvl [0.5-1.4 mg/dL] 47 mL/min/1.73m2 1 *NA* (07/03/14 6:30 AM) 47 mL/min/1.73m2 2 *NA* (07/02/14 6:20 AM) 53 mL/min/1.73m2 3 *NA* (06/29/14 6:23 AM) eGFR 15 mg/dL (07/03/14 6:30 AM) 16 mg/dL (07/02/14 6:20 AM) 14 mg/dL (06/29/14 6:23 AM) BUN [7-22 mg/dL] 100 mg/dL 4 *HI* (07/03/14 6:30 AM) 97 mg/dL 5 (07/02/14 6:20 AM) 96 mg/dL 6 (06/29/14 6:23 AM) Glucose Lvl [70-99 mg/dL] 2.7 g/dL *LOW* (06/14/14 3:00 AM) Albumin Lvl [3.5-5.0 g/dL] 9.3 mg/dL (07/03/14 6:30 AM) 9.2 mg/dL (07/02/14 6:20 AM) 9.2 mg/dL (06/29/14 6:23 AM) Calcium Lvl [8.5-10.5 mg/dL] 4.0 mg/dL (06/14/14 3:00 AM) Phosphorus [2.5-4.5 mg/dL] 2.4 mg/dL (06/14/14 3:00 AM) Magnesium Lvl [1.8-2.4 mg/dL] 17 ng/mL 7 *LOW* (06/14/14 3:00 AM) Vitamin D, 25-OH, Total [30-100 ng/mL] 1Result Comment: The eGFR is calculated [...] be mul tiplied by the estimated BMI. 4Interpretive Data: Adult reference range values reflect the clinical guidelines of the [place] [employer]. 5Interpretive Data: Adult reference range values reflect the clinical guidelines of the [place] [employer]. 6Interpretive Data: Adult reference range values reflect the clinical guidelines of the [place] [employer]. 7Interpretive Data: Reference range is based on recommendations in the Endocrine Society Clinical Practice Guideline (J Clin Endocrinol Metab 2011;96:4841-9593) CARDIAC ENZYMES 1 2 3 Most recent to oldest [Reference Range]: 393 pg/mL 8 *HI* (07/03/14 6:30 AM) 427 pg/mL 9 *HI* (06/29/14 6:23 AM) BNP [<=100 pg/mL] 8Interpretive Data: Elevated results are in line with increasing severity of congestive heart failure. Minor elevations between 100 and 300 may be seen with Myocardial Ischemia, Sodium retaining drugs, and compensated/treated heart failure. 9Interpretive Data: Elevated results are in line with increasing severity of congestive heart failure. Minor elevations between 100 and 300 may be seen with Myocardial Ischemia, Sodium retaining drugs, and compensated/treated heart failure. SPECIAL CHEMISTRY 1 2 3 Most recent to oldest [Reference Range]: 6.0 % *HI* (06/14/14 3:00 AM) Hgb A1C [<=5.6 %] THYROID PANEL 1 2 3 Most recent to oldest [Reference Range]: 1.30 ng/dL (06/14/14 3:00 AM) T4 Free [0.76-1.46 ng/dL] 1.550 uIU/mL (06/14/14 3:00 AM) TSH [0.360-3.740 uIU/mL] IMMUNOLOGY 1 2 3 Most recent to oldest [Reference Range]: 18.3 mg/dL (06/29/14 6:23 AM) 17.1 mg/dL *LOW* (06/24/14 4:30 AM) 11.1 mg/dL *LOW* (06/14/14 3:00 AM) Prealbumin [18.0-45.0 mg/dL] HEMATOLOGY 1 2 3 Most recent to oldest [Reference Range]: 5.3 K/CMM (06/29/14 6:23 AM) 5.1 K/CMM (06/27/14 6:27 AM) 5.5 K/CMM (06/24/14 4:30 AM) WBC [3.7-10.4 K/CMM] 4.82 M/CMM (06/29/14 6:23 AM) 4.80 M/CMM (06/27/14 6:27 AM) 4.85 M/CMM (06/24/14 4:30 AM) RBC [4.20-5.40 M/CMM] 14.5 g/dL (06/29/14 6:23 AM) 14.6 g/dL (06/27/14 6:27 AM) 14.9 g/dL (06/24/14 4:30 AM) Hgb [12.0-16.0 g/dL] 44.0 % (06/29/14 6:23 AM) 44.0 % (06/27/14 6:27 AM) 44.3 % (06/24/14 4:30 AM) Hct [36.0-48.0 %] 91.3 fL (06/29/14 6:23 AM) 91.5 fL (06/27/14 6:27 AM) 91.5 fL (06/24/14 4:30 AM) MCV [80.0-98.0 fL] 30.1 pg (06/29/14 6:23 AM) 30.5 pg (06/27/14 6:27 AM) 30.8 pg (06/24/14 4:30 AM) MCH [27.0-31.0 pg] 33.0 g/dL (06/29/14 6:23 AM) 33.3 g/dL (06/27/14 6:27 AM) 33.6 g/dL (06/24/14 4:30 AM) MCHC [32.0-36.0 g/dL] 15.4 % *HI* (06/29/14 6:23 AM) 15.1 % *HI* (06/27/14 6:27 AM) 14.9 % *HI* (06/24/14 4:30 AM) RDW [11.5-14.5 %] 219 K/CMM (06/29/14 6:23 AM) 212 K/CMM (06/27/14 6:27 AM) 228 K/CMM (06/24/14 4:30 AM) Platelet [133-450 K/CMM] 8.5 fL (06/29/14 6:23 AM) 8.3 fL (06/27/14 6:27 AM) 8.2 fL (06/24/14 4:30 AM) MPV [7.4-10.4 fL] 55.3 % (06/29/14 6:23 AM) 57.5 % (06/27/14 6:27 AM) 58.5 % (06/24/14 4:30 AM) Segs [45.0-75.0 %] 33.2 % (06/29/14 6:23 AM) 30.3 % (06/27/14 6:27 AM) 29.7 % (06/24/14 4:30 AM) Lymphocytes [20.0-40.0 %] 5.7 % (06/29/14 6:23 AM) 6.4 % (06/27/14 6:27 AM) 6.4 % (06/24/14 4:30 AM) Monocytes [2.0-12.0 %] 4.6 % *HI* (06/29/14 6:23 AM) 4.7 % *HI* (06/27/14 6:27 AM) 4.1 % *HI* (06/24/14 4:30 AM) Eosinophils [0.0-4.0 %] 1.2 % *HI* (06/29/14 6:23 AM) 1.1 % *HI* (06/27/14 6:27 AM) 1.3 % *HI* (06/24/14 4:30 AM) Basophils [0.0-1.0 %] 2.9 K/CMM (06/29/14 6:23 AM) 2.9 K/CMM (06/27/14 6:27 AM) 3.2 K/CMM (06/24/14 4:30 AM) Segs-Bands # [1.5-8.1 K/CMM] 1.7 K/CMM (06/29/14 6:23 AM) 1.5 K/CMM (06/27/14 6:27 AM) 1.6 K/CMM (06/24/14 4:30 AM) Lymphocytes # [1.0-5.5 K/CMM] 0.3 K/CMM (06/29/14 6:23 AM) 0.3 K/CMM (06/27/14 6:27 AM) 0.4 K/CMM (06/24/14 4:30 AM) Monocytes # [0.0-0.8 K/CMM] 0.2 K/CMM (06/29/14 6:23 AM) 0.2 K/CMM (06/27/14 6:27 AM) 0.2 K/CMM (06/24/14 4:30 AM) Eosinophils # [0.0-0.5 K/CMM] 0.1 K/CMM (06/29/14 6:23 AM) 0.1 K/CMM (06/27/14 6:27 AM) 0.1 K/CMM (06/24/14 4:30 AM) Basophils # [0.0-0.2 K/CMM] 21.9 seconds *HI* (06/16/14 3:00 AM) 22.6 seconds *HI* (06/15/14 3:45 AM) 20.9 seconds *HI* (06/14/14 3:00 AM) PT [12.0-14.7 seconds] 1.86 10 *HI* (06/16/14 3:00 AM) 1.94 11 *HI* (06/15/14 3:45 AM) 1.76 12 *HI* (06/14/14 3:00 AM) INR [0.85-1.17] 32.5 seconds 13 (06/14/14 3:00 AM) PTT [22.9-35.8 seconds] 10Interpretive Data: RECOMMENDED RANGES FOR PROTIME INR: 2.0-3.0 for most medical and surgical thromboembolic states. 2.5-3.5 for artificial heart valves and recurrent embolism. INR SHOULD BE USED ONLY FOR PATIENTS ON STABLE ANTICOAGULANT THERAPY. 11Interpretive Data: RECOMMENDED RANGES FOR PROTIME INR: 2.0-3.0 for most medical and surgical thromboembolic states. 2.5-3.5 for artificial heart valves and recurrent embolism. INR SHOULD BE USED ONLY FOR PATIENTS ON STABLE ANTICOAGULANT THERAPY. 12Interpretive Data: RECOMMENDED RANGES FOR PROTIME INR: 2.0-3.0 for most medical and surgical thromboembolic states. 2.5-3.5 for artificial heart valves and recurrent embolism. INR SHOULD BE USED ONLY FOR PATIENTS ON STABLE ANTICOAGULANT THERAPY. 13Interpretive Data: Heparin Therapeutic Range: 57 - 92 Seconds Medications Administered During Your Visit No data available for this section Immunizations No data available for this section Social History Social History Type Response Alcohol Use: Never, Has alcohol use interfered with work or home life? No, Do you ever drink more than intended? No, Has anyone been hurt or at risk by your drinking? No, Ready to change: No, Concerns about alcohol use in household: No Smoking Status Never smoker, Previous treatment: None, Ready to change: No, Concerns about tobacco use in household: No, Exposure to Tobacco Smoke None, Cigarette Smoking Last 365 Days No, Reg Smoking Cessation Counseling No Assessment and Plan Extracted from: Title: Clinical Document Author: Earnest Azul MD Date: 07/03/14 PHYSICAL MEDICINE AND REHABILITATION FOLLOW UP CHIEF COMPLAINT IDENTIFICATION: An 83-year-old lady being seen for ongoing rehabilitation needs after an acute stroke. INTERVAL EVENTS AND SUBJECTIVE: All interval events reviewed. Denies fevers, chills, nausea, vomiting, shortness of breath, chest pain, palpitations, headaches, dizziness. Pain is not limiting therapies. No bowel or bladder complaints. Ambulation improving, more steady. No other strength or sensation changes. Her came dwn to therapies over the weekend and was very impressed by her progress. PHYSICAL EXAMINATION: Vitals and Temp: VitalsTmp(F)[id number] 07/03 08:[id number]------ 07/02 20:[id number]--- 07/02 16:[id number]--- 07/02 08:[id number]/95--92--- 07/01 19:[id number]--- 24 Hr Tmax: 97.9F (36.61c) at 07/03 08:17Vital Signs are the last 5 in the past 48 hours. GENERAL: NAD seen in room PSYCH: She is alert, oriented, appropriate. Pleasant. HEENT: Pupils equal, round, reactive to light. Extraocular muscles intact. Moist mucous membranes. CARDIOVASCULAR: Strong pulses 2+. Regular rhythm. Edema minimal. HEENT: Pupils equal, round, react to light. PULMONARY: Respirations unlabored, no conversational dyspnea. Mild crackles in bases, and possibly slight pleural rub. ABDOMEN: Doughy, nontender, nondistended. GENITOURINARY: No Toribio. SKIN: No new breakdown. Left thoracic incision c/d/i NEUROMUSCULOSKELETAL: No changes in strength, sensation, coordination or cranial nerve exam. Standing steadily in the walker, working with exercise bike, and now able to maintain conversational speech. LABORATORY DATA: Labs (Last four charted values) WBC 5.3(JUN 29)5.1(JUN 27)5.5(JUN 24)6.3(JUN 20) Hgb 14.5(JUN 29)14.6(JUN 27)14.9(JUN 24)13.9(JUN 20) Hct 44.0(JUN 29)44.0(JUN 27)44.3(JUN 24)40.0(JUN 20) Plt 219(JUN 29)212(JUN 09)228(JUN 24)258(JUN 02) Na 140(JUL 03)139(JUN 14)142(JUN 11)140(JUN 09) K L 3.3(JUL 03)L 3.3(JUL 02)3.9(JUN 29)3.6(JUN 27) CO2 32(JUL 03)30(JUN 14)H 33(JUN 11)30(JUN 09) Cl 100(JUN 15)102(JUN 14)102(JUN 11)104(JUN 09) Cr 1.1(JUL 03)1.1(JUL 02)1.0(JUN 29)1.0(JUN 09) BUN 15(JUN 15)16(JUN 14)14(SEP 11)12(JUN 09) Glucose Random H 100(JUN 15)97(JUN 14)96(JUN 11)H 102(JUN 09) Mg 2.4(JUN 14) Phos 4.0(JUN 14) Ca 9.3(SEP 15)9.2(SEP 14)9.2(SEP 11)9.3(JUN 27) PT H 21.9(JUN 16)H 22.6(JUN 15)H 20.9(JUN 14) INR H 1.86(JUN 16)H 1.94(JUN 15)H 1.76(JUN 14) PTT 32.5(JUN 14) IMAGING DIAGNOSTIC STUDIES: No new imaging. ASSESSMENT AND PLAN: This is an 83-year-old lady with: 1. 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 -continue post-stroke medical risk reduction. She is currently on Eliquis and aspirin. Cholesterol levels have been within target ranges. -We will continue post-stroke therapies as below. -Continue stroke education. 2. Pulmonary Congestion with pulmonary arterial hypertension -stable. -BNP responded to Lasix. -Will decrease to Qday Lasix. -Potassium supplementation for Lasix induced hypokalemia. 3. Hypertension-now controlled -BP's are in target ranges -Cont. the amlodipine. -Cont. metoprolol Q12 Hours. -Dr. Houser following. 4. Atrial fibrillation status post symptomatic bradycardia and now with pacemaker placement: -Cont weight bearing below 90 degrees with left arm. -Stable rhythm. 5. Right Wrist Pain and Postoperative arm pain with hypertonicity and muscle strain: -Stable. -Cont. stretching and splinting. -Arm protection 6. Rehabilitation for deficits in her mobility, ADLs, IADLs, cognition, and communication related to right hemiparesis, incoordination, ataxia and dysarthria secondary to the stroke: -All interval therapy notes reviewed. -Tolerating therapy well. -FIMS reviewed. -Home health ordered. Basic ADL Grid Eating : Setup Grooming : Setup Bathing : Rehab Minimal assistance UE Dressing : Setup LE Dressing : Close supervision Bed Mobility : Close supervision -Min assist x 300 feet with FWW. Eqpt: Rolling walker, and MWC with cushion. bedside commode. Has the shower chair. 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 Current Status Severity Level Comprehension: Standby prompting Performed: 06/28/14 10:09 Comprehension Mode: Auditory Performed: 06/28/14 10:09 Expression: Standby prompting Performed: 06/28/14 10:09 Expression Mode: Vocal Performed: 06/28/14 10:09 Memory: Minimal prompting Performed: 06/28/14 10:09 Problem Solving: Minimal prompting Performed: 06/28/14 10:09 Social Interaction: Standby prompting Performed: 06/28/14 10:09 PT Current Status PT Treatment Recommendations PT Treatment Recommendations: Good rehab potential to return home with assistance for household mobility at a w/c level and limited amb with RW. Pt will benefit from skilled PT to progress for safe return home with spouse. Performed: 06/13/14 14:29 Mobility Transfer Bed to and From Chair: Moderate assistance Performed: 06/16/14 11:12 Transfer Toilet Type: Stand pivot Performed: 07/03/14 15:24 Toilet Transfer Device Type: Walker, rolling, Other: 3 in 1 commode over toilet Performed: 07/03/14 15:24 Tub, Shower Transfer: Close S Performed: 07/03/14 15:24 Tub/Shower Transfer Type: Stand pivot Performed: 07/03/14 15:24 Tub/Shower Transfer Device Type: Other: tub bench and sliding board Performed: 07/03/14 15:24 Ambulation Level Surfaces Ambulation Device: Walker, rolling Performed: 07/03/14 11:41 Ambulation Distance: 300 ft Performed: 07/03/14 11:41 Ambulation Level Surfaces: Min A Performed: 07/03/14 11:41 Ambulation Uneven Surfaces Locomotion Walk: 4 Performed: 07/03/14 11:41 Stairs Technique: Step to Performed: 07/03/14 11:41 Stairs Device: None Performed: 07/03/14 11:41 Stairs Ambulation Assist: Total assistance Performed: 07/03/14 11:41 Number of Stairs Performed: 1 Performed: 07/03/14 11:41 Locomotion Stair: 1 Performed: 07/03/14 11:41 Bed,Chair,Wheelchair: Minimal assistance Performed: 07/03/14 11:41 Wheelchair Mobility Level Surfaces Wheelchair Mobility Level Surfaces: Minimal assistance Performed: 07/03/14 11:41 Wheelchair Mobility Level Distance: 150 ft Performed: 07/03/14 11:41 OT Current Status OT Treatment Recommendations OT Treatment Recommendations: Skilled OT services recommended to assist patient to reach her highest level of independence in ADLS safely with the goal of returning home with family support Performed: 06/13/14 15:06 ADL Eating: Setup Performed: 07/03/14 15:24 Grooming: Setup Performed: 07/03/14 15:24 Grooming Descriptors: Wheelchair Performed: 06/28/14 10:09 Bathing: Min A Performed: 07/03/14 15:24 Upper Extremity Dressing: Setup Performed: 07/03/14 15:24 Lower Extremity Dressing: Close S Performed: 07/03/14 15:24 Dressing Descriptors: Unsupported short sit Performed: 06/28/14 10:09 Dressing Equipment: Sanitarian Inspector, Sock aide Performed: 06/28/14 10:09 Toileting: Close S Performed: 07/03/14 15:24 Toileting Descriptors: Standing with device Performed: 06/28/14 10:09 Toilet Transfer: Close S Performed: 07/03/14 15:24 Tub Transfer: Close S Performed: 07/03/14 15:24 Shower Transfer: Min A Performed: 07/01/14 13:58 Extracted from: Title: Clinical Document Author: Cassandra Olea DO Date: 06/14/14 [facility] Cardiology Consultation Report OUTPATIENT PRIMARY CARE PHYSICIAN: Dr. Vishnu Lew. 1930 HPI INSURANCE APPROVED INPATIENT REHAB FOR HER STROKE 2ND TO AFIB ALSO WILL NEED HELP 2ND TO REQUIRING A PACER FOR SSS. ON ANTICOAG WITH MARIA ESTHER ELDERLY HAS BEEN STAYING AT THE [facility]. TRIED TO DISCUSS WITH HIM THAT THIS ISN'T HELPING MATTIE. RIGHT NOW HIS BACK IS HURTING HIM FROM SLEEPING IN THE CHAIR. DR STARR ALSO TALKED TO HER ABOUT TELLING THE TO GO HOME & REST ONLY SHOULD COME UP FOR A COUPLE OF HRS A DAY. 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 atrial fib noncompliance with her warfarin. 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 VitalsTmp(F)Tmp(C)YdpzgUCOWXPmvyoAEMhY2TJI1OITR2 06/14 08:[id number]/70---[id number]------ 06/14 06:57 5 32%--- 06/13 21:44 2093------ 06/13 21:43 93 3.0L/m--- 06/13 21:0997.436.23pbhw234/73---[id number]------ 24 Hr Tmax: 98.3F (36.83c) at 06/14 08:00Vital Signs are the last 5 in the past 48 hours. 24 Hr Tmin: 97.4F (36.33c) at 06/13 21:09Weights are the last 5 in 60 days, plus initial. DateWt(kg)Wt(lb)Ht(cm)Ht(in)MethodBMI 06/12 (initial) 94.77 208.50Measured 31.8 72.72 68.00Stated Most Recent Scores: 06/14/14Pain Intensity NRS (0-10)0 06/14/14Glasgow Coma Score15 06/13/14Braden Score16 Lines, Tubes, and Drains: 06/13/2014 20:00 Peripheral Lines: Forearm Right Over the needle catheter 20 gauge (no surgical procedures documented) I&ORecordInOutBal 05/2724hr Tot 35 0 35 4hr Tot 40 0 40 24hr Labs 06/14 0300 Albumin Lvl2.7 L Glucose Csc557 H BUN17 Creatinine Lvl1.2 Sodium Jwo566 Potassium Lvl4.2 Chloride Zsi563 CO230 AGAP8.2 L Calcium Lvl9.2 eGFR42 Magnesium Lvl2.4 Phosphorus4.0 TSH1.550 T4 Free1.30 Hgb A1C6.0 H WBC8.5 RBC4.77 Hgb14.6 Hct43.6 MCV91.3 MCH30.6 MCHC33.5 RDW14.6 H Ylqgchgl109 MPV8.3 Segs73.1 Monocytes7.5 Ncteskpghyg71.9 L Eosinophils2.4 Basophils1.1 H Segs-Bands #6.2 Lymphocytes #1.4 Monocytes #0.6 Eosinophils #0.2 Basophils #0.1 PT20.9 H INR1.76 H PTT32.5 Scheduled Meds (9): DME Prescriptions (Compression Stockings) 1 ea TOP Daily [eMAR Schedule: (06/14/14) 09:00] [Future Dose: 06/15/14 09:00] amLODIPine (Norvasc) 5 mg PO Daily [eMAR Schedule: (06/14/14) 09:00] [Future Dose: 06/15/14 09:00] apixaban (Eliquis) 5 mg PO BID [eMAR Schedule: (06/14/14) 09:00, 17:00] aspirin (aspirin 81 mg tablet, enteric coated) 81 mg PO Daily [eMAR Schedule: (06/14/14) 09:00] [Future Dose: 06/15/14 09:00] ciprofloxacin (Cipro) 500 mg PO [id number] [eMAR Schedule: (06/14/14) 04:00, 16:00] cloNIDine (cloNIDine 0.3 mg/24 hr transdermal film, extended release) 1 patch TOP Q7D [Future Dose: 06/19/14 09:00] lactulose (lactulose 10 g/15 mL oral syrup) 10 gm PO BID [eMAR Schedule: (06/14/14) 09:00, 17:00] metoprolol (Lopressor) 25 mg PO Q6H [eMAR Schedule: (06/14/14) 00:00, 06:00, 12:00, 18:00; (06/15/14) 00:00] sodium chloride (Saline Flush 0.9%) 5 ml IVP Q12H [eMAR Schedule: (06/14/14) 09:00, 21:00] Unscheduled Meds: None PRN Meds (6): acetaminophen-hydrocodone (acetaminophen-hydrocodone 325 mg-5 mg oral tablet) 1 tab PO Q4H acetaminophen 650 mg PO Q4H acetaminophen (Tylenol) 650 mg PO Q4H bisacodyl (Dulcolax Laxative) 10 mg AK Daily sodium chloride (Saline Flush 0.9%) 5 ml IVP PRN trazodone 50 mg PO Bedtime One Time Meds: None Continuous Infusions: None Bowel Movement Type: None Type of Bladder Control: Voluntary Type of Urinary Elimination: Incontinent
--- OUTSIDE RECORDS SUMMARY | 2019-01-19 15:14 | XMS REPORT | Summary of Care ---
Author Author [facility] [place] Organization [facility] [place] Address Unknown Phone Unavailable Encounter [facility] [place](FIN) [id number] Date(s): 07/21/16 - 07/21/16 [facility] [address] [place] [phone] Discharge Disposition: Home or Self Care Attending Physician: Vishnu Lew MD Vital Signs No data available for this section Problem List Condition Effective Dates Status Health [...] Medications No data available for this section Results No data available for this section Immunizations No data available for this section Procedures No data available for this section Social History Social History Type Response Alcohol Never, 0 Drinks/Episode average. 0.00 Drinks/Episode maximum. Alcohol use interferes with work or home: No. Drinks more than intended: No. Others hurt by drinking: No. Ready to change: No. Household alcohol concerns: No. Smoking Status Previous treatment: None; Ready to change: No; Concerns about tobacco use in household: No; Exposure to Tobacco Smoke None; Cigarette Smoking Last 365 Days No; Reg Smoking Cessation Counseling No; Never smoker; Tobacco use per day: 0; Number of years: 0; Total pack years: 0; Started at age: 2.0; Stopped at age: 2 Assessment and Plan No data available for this section
--- OUTSIDE RECORDS SUMMARY | 2019-01-19 15:14 | XMS REPORT | Summary of Care ---
Author Organization Unknown Address Unknown Phone Unavailable Encounter [facility](DEEPA) [id number] Date(s): 05/30/14 - 06/12/14 [facility] [id number] Discharge Disposition: DC/DISC TO REHAB Physician Attending: Oscar Wyman MD Physician Admitting: Oscar Wyman MD Reason for Visit CVA Vital Signs 1 2 3 Most recent to oldest [Reference Range]: 172.72 cm (05/30/14 7:53 PM) 172.72 cm (05/30/14 12:56 PM) Height 98.8 DegF (06/12/14 8:22 PM) 98.8 DegF (06/12/14 8:15 PM) 98.1 DegF (06/12/14 4:00 PM) Temperature Oral [96.4-99.1 DegF] 116 mmHg (06/12/14 8:22 PM) 116 mmHg (06/12/14 8:15 PM) 134 mmHg (06/12/14 4:00 PM) Systolic Blood Pressure [90-140 mmHg] 74 mmHg (06/12/14 8:22 PM) 74 mmHg (06/12/14 8:15 PM) 90 mmHg (06/12/14 4:00 PM) Diastolic Blood Pressure [60-90 mmHg] 18 BRMIN (06/12/14 8:22 PM) 18 BRMIN (06/12/14 8:15 PM) 16 BRMIN (06/12/14 4:00 PM) Respiratory Rate [14-20 BRMIN] 64 bpm (06/12/14 8:22 PM) 64 bpm (06/12/14 8:15 PM) 79 bpm (06/12/14 4:00 PM) Peripheral Pulse Rate [60-100 bpm] 95.455 kg (05/30/14 7:53 PM) 95.455 kg (8/12/14 12:56 PM) Weight 32 m2 (05/30/14 7:53 PM) 32 m2 (05/30/14 12:56 PM) Body Mass Index Problem List Condition Effective Dates Status Health Status Informant Atrial Active fibrillation(Confirm ed) Bradycardia, severe Active sinus(Confirmed) Hemiparesis, Active right(Confirmed) HTN Active (hypertension)(Confi rmed) 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) SSS (sick sinus Active syndrome)(Confirmed) Temporary cardiac Active pacemaker procedure(Confirmed) Allergies, Adverse Reactions, Alerts Substance Reaction Severity Status codeine Active Demerol Active morphine Active Medications acetaminophen 325 mg oral tablet 650 mg=2 tab, PO, Q4H, Pain, # 1 tab, 0 Refill(s), given to patient Start Date: 06/12/14 Status: Suspended amLODIPine 5 mg, 1 tab, Route: PO, Drug form: TAB, Daily, Dosing Weight 95.455, kg, Start d ate: 06/01/14 9:00:00, Duration: 30 day, Stop date: 06/30/14 9:00:00 Notes: (Same as: Kathic) Start Date: 06/01/14 Stop Date: 05/31/14 Status: Discontinued amLODIPine 5 mg, 1 tab, Route: PO, Drug form: TAB, Daily, Dosing Weight 95.455, kg, Start d ate: 06/01/14 9:00:00, Duration: 30 day, Stop date: 06/30/14 9:00:00 Notes: (Same as: Norvasc) Start Date: 06/01/14 Stop Date: 06/12/14 Status: Discontinued amLODIPine 5 mg, PO, Daily Start Date: 05/30/14 Status: Suspended apixaban 2.5 mg oral tablet 5 mg=2 tab, PO, BID, # 1 tab, 0 Refill(s), given to patient Start Date: 06/12/14 Status: Suspended aspirin 81 mg, 1 tab, Route: PO, Drug form: ECTAB, Daily, Dosing Weight 95.455, kg, Star t date: 05/31/14 18:00:00, Duration: 30 day, Stop date: 06/30/14 9:00:00 Notes: Do not crush or chew.(Same As: Ecotrin) Start Date: 05/31/14 Stop Date: 06/12/14 Status: Discontinued aspirin 81 mg tablet, enteric coated 81 mg=1 tab, PO, Daily, # 1 tab, 0 Refill(s), given to patient Start Date: 06/12/14 Status: Suspended atropine 1 mg, Route: IVP, PRN, Dosing Weight 95.455, kg, PRN Bradycardia, Start date: 17:15:00, Stop date: 07/04/14 17:14:00 Start Date: 06/04/14 Stop Date: 06/04/14 Status: Discontinued atropine 0.5 mg, 5 mL, Route: IVP, Drug form: INJ, PRN, Dosing Weight 95.455, kg, PRN Bra dycardia, Start date: 06/04/14 17:15:00, Stop date: 07/04/14 17:14:00 Start Date: 06/04/14 Stop Date: 06/12/14 Status: Discontinued atropine 1 mg, 10 mL, Route: IVP, Drug form: INJ, Q5Min, Dosing Weight 95.455, kg, Start date: 06/04/14 19:50:00, Duration: 3 doses or times, Stop date: 06/04/14 20:00:0 0 Start Date: 06/04/14 Stop Date: 06/04/14 Status: Completed bisacodyl 10 mg rectal suppository 10 mg=1 supp, AL, Daily, Constipation, # 1 supp, 0 Refill(s), given to patient Start Date: 06/12/14 Status: Suspended Cipro 500 mg, 1 tab, Route: PO, Drug form: TAB, [id number], Dosing Weight 95.455, kg, Sta rt date: 06/07/14 14:00:00, Stop date: 07/06/14 14:00:00 Notes: May interfere w/enteral feedings - Take 1 hr before or 2 hrs after anta cids, dairy pdt & minerals. On empty stomach. Start Date: 06/07/14 Stop Date: 06/12/14 Status: Discontinued ciprofloxacin 500 mg oral tablet 500 mg=1 tab, PO, [id number], # 1 tab, 0 Refill(s), given to patient Start Date: 06/12/14 Status: Suspended cloNIDine 0.3 mg/24 hr transdermal film, extended release 1 patch, Route: TOP, Drug Form: ERFILM, Dosing Weight 95.455, kg, Q7D, Start manoj e: 06/05/14 0:00:00, Duration: 30 day, Stop date: 07/03/14 9:00:00 Notes: Patch delivers 0.3 mg/24 hours; Patch is applied weekly. [id number]. "Remove old patch before application of new patch" Start Date: 06/05/14 Stop Date: 06/12/14 Status: Discontinued cloNIDine 0.3 mg/24 hr transdermal film, extended release 1 patch, TOP, Q7D, # 1 patch, 0 Refill(s), given to patient Start Date: 06/12/14 Status: Suspended Coumadin 2 mg, 1 tab, Route: PO, Drug form: TAB, Bedtime, Dosing Weight 95.455, kg, Start date: 05/31/14 21:00:00, Duration: 30 day, Stop date: 06/29/14 21:00:00 Notes: Nurse to ensure documentation of patient education per anticoagulation po licy.Avoid large intake of vitamin-K containing foods diet.(Same As: Coumadin) Start Date: 05/31/14 Stop Date: 05/31/14 Status: Canceled Dulcolax Laxative 10 mg, 1 supp, Route: AL, Drug form: SUPP, Daily, Dosing Weight 95.455, kg, PRN Constipation, Start date: 06/02/14 15:25:00, Duration: 30 day, Stop date: 15:24:00 Notes: (Same As: Dulcolax, Bisco-Lax) Start Date: 06/02/14 Stop Date: 06/12/14 Status: Discontinued Eliquis 5 mg, 2 tab, Route: PO, Drug form: TAB, BID, Dosing Weight 95.455, kg, Start manoj e: 06/12/14 17:00:00, Duration: 30 day, Stop date: 07/12/14 9:00:00 Notes: Same as: Eliquis Start Date: 06/12/14 Stop Date: 06/12/14 Status: Discontinued enalaprilat 1.25 mg, 1 mL, Route: IV, Drug form: INJ, Q6H, Dosing Weight 95.455, kg, PRN Lina vated BP, Start date: 05/30/14 23:05:00, Duration: 30 day, Stop date: 06/29/14 2 3:04:00, for SBP > 180 Notes: (Same as: Vasotec-IV) Start Date: 05/30/14 Stop Date: 06/04/14 Status: Discontinued ergocalciferol 50,000 IntlUnit, 1 cap, Route: PO, Drug form: CAP, Daily, Dosing Weight 95.455, kg, Start date: 06/03/14 9:00:00, Duration: 7 day, Stop date: 06/09/14 9:00:00 Notes: (Same as: Vitamin D) "Do Not Crush" Start Date: 06/03/14 Stop Date: 06/04/14 Status: Discontinued furosemide 10 mg, 1 mL, Route: IV, Drug form: INJ, ONCE, Dosing Weight 95.455, kg, Start da te: 06/04/14 18:58:00, Stop date: 06/04/14 18:58:00 Notes: (Same as: Lasix) Start Date: 06/04/14 Stop Date: 06/05/14 Status: Completed furosemide 80 mg, PO, Daily Start Date: 05/30/14 Stop Date: 06/12/14 Status: Discontinued furosemide 80 mg, 2 tab, Route: PO, Drug form: TAB, Daily, Dosing Weight 95.455, kg, Start date: 06/01/14 9:00:00, Duration: 30 day, Stop date: 06/30/14 9:00:00 Notes: (Same as: Lasix) May cause GI upset. Give with food or milk. Start Date: 06/01/14 Stop Date: 06/02/14 Status: Discontinued furosemide 40 mg oral tablet 80 mg, 2 tab, Route: PO, Drug form: TAB, After Lunch, Dosing Weight 95.455, kg, Start date: 06/03/14 12:30:00, Duration: 30 day, Stop date: 07/02/14 12:30:00 Notes: (Same as: Lasix) May cause GI upset. Give with food or milk. Start Date: 06/03/14 Stop Date: 06/04/14 Status: Discontinued heparin 5,000 unit, 1 mL, Route: SUB-Q, Drug form: INJ, Q12H, Dosing Weight 95.455, kg, Start date: 06/02/14 21:00:00, Stop date: 06/06/14 16:00:00 Notes: porcine heparin Start Date: 06/02/14 Stop Date: 06/06/14 Status: Completed hydrALAZINE 20 mg, 1 mL, Route: IV, Drug form: INJ, Q2H, Dosing Weight 95.455, kg, PRN See Harrison holcomb's Notes, Start date: 06/04/14 23:51:00, Duration: 30 day, Stop date: 23:50:00, sbp >170 Notes: (Same as: Apresoline)Push over 5 minutes Start Date: 06/04/14 Stop Date: 06/12/14 Status: Discontinued hydrALAZINE 10 mg, 0.5 mL, Route: IV, Drug form: INJ, Q4H, Dosing Weight 95.455, kg, PRN Lina vated BP, sbp>160, Start date: 06/01/14 9:07:00, Duration: 30 day, Stop date: 07/01/14 9:06:00, sbp>160 Notes: (Same as: Apresoline)Push over 5 minutes Start Date: 06/01/14 Stop Date: 06/11/14 Status: Discontinued hydrALAZINE 50 mg oral tablet 50 mg, 1 tab, Route: PO, Drug form: TAB, Q6H, Dosing Weight 95.455, kg, Start da te: 06/01/14 18:00:00, Duration: 30 day, Stop date: 07/01/14 12:00:00 Notes: (Same as: Apresoline) May interfere w/enteral feedings Take With Food Start Date: 06/01/14 Stop Date: 06/07/14 Status: Discontinued labetalol 5 mg, 1 mL, Route: IV, Drug form: INJ, Q2H, Dosing Weight 95.455, kg, PRN Elevat ed BP, Start date: 05/30/14 23:02:00, Duration: 30 day, Stop date: 06/29/14 23:0 1:00, For SBP > 180 Notes: (Same as: Normodyne, Trandate)Push over 2 minutes Give bolus over 2-3 mi nutes. Start Date: 05/30/14 Stop Date: 06/01/14 Status: Discontinued lactulose 10 g/15 mL oral syrup 10 gm, 15 mL, Route: PO, Drug Form: SYRP, Dosing Weight 95.455, kg, BID, Start d ate: 06/04/14 17:00:00, Duration: 30 day, Stop date: 07/04/14 9:00:00 Notes: (Same as:Chronulac) Start Date: 06/04/14 Stop Date: 06/12/14 Status: Discontinued lactulose 10 g/15 mL oral syrup 10 gm=15 mL, PO, BID, # 1 mL, 0 Refill(s), given to patient Start Date: 06/12/14 Status: Suspended magnesium citrate 150 ml, Route: PO, Drug Form: LIQ, Dosing Weight 95.455, kg, ONCE, Start date: 0 06/03/14 13:07:00, Stop date: 06/03/14 13:07:00 Notes: (Same as: Citrate of Magnesia) Start Date: 06/03/14 Stop Date: 06/03/14 Status: Completed metoprolol 5 mg/5 ml INJ Route: IV, Drug form: INJ, Q2H, Dosing Weight 95.455, kg, PRN Elevated BP, Start date: 06/01/14 9:14:00, Duration: 30 day, Stop date: 07/01/14 9:13:00, pulse > 120 Notes: (Same as: Lopressor)Push over 2 minutes Start Date: 06/01/14 Stop Date: 06/12/14 Status: Discontinued metoprolol tartrate 25 mg, 1 tab, Route: PO, Drug form: TAB, Q6H, Dosing Weight 95.455, kg, Start da te: 06/09/14 12:00:00, Duration: 30 day, Stop date: 07/09/14 6:00:00 Notes: (Same as: Lopressor) Start Date: 06/09/14 Stop Date: 06/12/14 Status: Discontinued metoprolol tartrate 25 mg oral tablet 25 mg=1 tab, PO, Q6H, # 1 tab, 0 Refill(s), given to patient Start Date: 06/12/14 Status: Suspended [place] 5/325 oral tablet 1 tab, Route: PO, Drug Form: TAB, Dosing Weight 95.455, kg, Q4H, PRN Pain, Start date: 06/02/14 0:45:00, Duration: 30 day, Stop date: 07/02/14 0:44:00 Notes: (Same as: Columbia 325/5) Do not exceed 4gm/day of acetaminophen. Start Date: 06/02/14 Stop Date: 06/12/14 Status: Discontinued Columbia 5/325 oral tablet 1 tab, PO, Q4H, Pain, # 1 tab, 0 Refill(s), given to patient Start Date: 06/12/14 Status: Suspended ondansetron 4 mg, 2 mL, Route: IVP, Drug form: INJ, Q8H, Dosing Weight 95.455, kg, PRN Nause a & Vomiting, Start date: 05/30/14 20:38:00, Duration: 30 day, Stop date: 06/29/14 20:37:00 Notes: (Same as: Leonidesan) Start Date: 05/30/14 Stop Date: 06/12/14 Status: Discontinued potassium chloride 40 mEq, 2 tab, Route: PO, Drug form: ERTAB, ONCE, Dosing Weight 95.455, kg, Star t date: 05/31/14 4:48:00, Stop date: 05/31/14 4:48:00 Notes: (Same as: K-Dur 20)"Do Not Crush" With food and full glass of water Start Date: 05/31/14 Stop Date: 05/31/14 Status: Completed potassium chloride 20 mEq oral tablet, extended release 20 mEq, 1 tab, Route: PO, Drug form: ERTAB, BID, Dosing Weight 95.455, kg, Start date: 06/03/14 9:00:00, Duration: 30 day, Stop date: 07/02/14 17:00:00 Notes: (Same as: K-Dur 20)"Do Not Crush" With food and full glass of water Start Date: 06/03/14 Stop Date: 06/04/14 Status: Discontinued potassium chloride 20 mEq oral tablet, extended release 20 mEq, 1 tab, Route: PO, Drug form: ERTAB, Daily, Dosing Weight 95.455, kg, Sta rt date: 06/02/14 20:00:00, Duration: 30 day, Stop date: 07/02/14 9:00:00 Notes: (Same as: K-Dur 20)"Do Not Crush" With food and full glass of water Start Date: 06/02/14 Stop Date: 06/02/14 Status: Discontinued propafenone 150 mg, 1 tab, Route: PO, Drug form: TAB, Q8H, Dosing Weight 95.455, kg, Start d ate: 06/01/14 16:00:00, Duration: 30 day, Stop date: 07/01/14 8:00:00 Notes: (Same as: Rythmol) Start Date: 06/01/14 Stop Date: 06/04/14 Status: Discontinued terbutaline 5 mg, 1 tab, Route: PO, Drug form: TAB, Q6H, Dosing Weight 95.455, kg, PRN Sabino cardia, Start date: 06/04/14 17:41:00, Duration: 30 day, Stop date: 07/04/14 17: 40:00 Notes: DO NOT USE IN GRAVEL ROOFER AREA(Same As: Winifred) Non-Formulary Start Date: 06/04/14 Stop Date: 06/04/14 Status: Discontinued Tylenol 650 mg, 2 tab, Route: PO, Drug form: TAB, Q4H, Dosing Weight 95.455, kg, PRN Dyana n, Start date: 06/02/14 16:21:00, Duration: 30 day, Stop date: 07/02/14 16:20:00 Notes: Do not exceed 4 gm/day. (Same as: Tylenol) Start Date: 06/02/14 Stop Date: 06/12/14 Status: Discontinued vancomycin 1 gm, 200 mL, Route: IVPB, Drug form: INJ, ONCE, Dosing Weight 95.455, kg, Start date: 06/07/14 12:55:00, Stop date: 06/07/14 12:55:00 Start Date: 06/07/14 Stop Date: 06/08/14 Status: Completed Vitamin K1 + Sodium Chloride 0.9% IV 50 mL 10 mg, 1 mL, Route: IVPB, Drug form: INJ, ONCE, Dosing Weight 95.455, kg, Priori ty: STAT, Start date: 06/05/14 8:44:00, Stop date: 06/05/14 8:44:00 Notes: (Same as: Aqua-Mephyton, Vitamin K) Start Date: 06/05/14 Stop Date: 06/05/14 Status: Completed warfarin 2 mg, 1 tab, Route: PO, Drug form: TAB, QWeekday, Dosing Weight 95.455, kg, Star t date: 06/12/14 17:00:00, Duration: 30 day, Stop date: 07/11/14 17:00:00 Notes: Nurse to ensure documentation of patient education per anticoagulation po licy.Avoid large intake of vitamin-K containing foods diet.(Same As: Coumadin) Start Date: 06/12/14 Stop Date: 06/12/14 Status: Canceled warfarin 5 mg, 1 tab, Route: PO, Drug form: TAB, Q5PM, Dosing Weight 95.455, kg, Start da te: 06/03/14 17:00:00, Duration: 1 doses or times, Stop date: 06/03/14 17:00:00 Notes: Nurse to ensure documentation of patient education per anticoagulation po licy.Avoid large intake of vitamin-K containing foods diet.(Same As: Coumadin) Start Date: 06/03/14 Stop Date: 06/03/14 Status: Completed warfarin 2 mg, 1 tab, Route: PO, Drug form: TAB, QWeekday, Dosing Weight 95.455, kg, Star t date: 06/01/14 17:00:00, Duration: 30 day, Stop date: 06/30/14 17:00:00 Notes: Nurse to ensure documentation of patient education per anticoagulation po licy.Avoid large intake of vitamin-K containing foods diet.(Same As: Coumadin) Start Date: 06/01/14 Stop Date: 06/02/14 Status: Discontinued warfarin 4 mg, 2 tab, Route: PO, Drug form: TAB, Q-Sa and Head, Dosing Weight 95.455, kg, S tart date: 06/03/14 17:00:00, Duration: 30 day, Stop date: 07/02/14 17:00:00 Notes: Nurse to ensure documentation of patient education per anticoagulation po licy.Avoid large intake of vitamin-K containing foods diet.(Same As: Coumadin) Start Date: 06/03/14 Stop Date: 06/02/14 Status: Canceled warfarin 4 mg, 2 tab, Route: PO, Drug form: TAB, Q-Sa and Head, Dosing Weight 95.455, kg, S tart date: 06/10/14 17:00:00, Duration: 30 day, Stop date: 07/09/14 17:00:00 Notes: Nurse to ensure documentation of patient education per anticoagulation po licy.Avoid large intake of vitamin-K containing foods diet.(Same As: Coumadin) Start Date: 06/10/14 Stop Date: 06/12/14 Status: Discontinued warfarin 4 mg, 2 tab, Route: PO, Drug form: TAB, Q5PM, Dosing Weight 95.455, kg, Start da te: 06/09/14 17:00:00, Duration: 1 doses or times, Stop date: 06/09/14 17:00:00 Notes: Nurse to ensure documentation of patient education per anticoagulation po licy.Avoid large intake of vitamin-K containing foods diet.(Same As: Coumadin) Start Date: 06/09/14 Stop Date: 06/09/14 Status: Completed warfarin 2 mg oral tablet 2 mg=1 tab, PO, QWeekday Start Date: 05/30/14 Stop Date: 06/12/14 Status: Discontinued warfarin 4 mg oral tablet 4 mg=1 tab, PO, Q-Sa and Head Start Date: 05/30/14 Stop Date: 06/12/14 Status: Discontinued Results ELECTROLYTES 1 2 3 Most recent to oldest [Reference Range]: 135 mEq/L (06/08/14 7:15 AM) 138 mEq/L (06/07/14 9:51 PM) 135 mEq/L (06/04/14 6:29 PM) Sodium Lvl [135-145 mEq/L] 4.3 mEq/L (06/08/14 7:15 AM) 4.1 mEq/L (06/07/14 9:51 PM) 5.1 mEq/L (06/04/14 6:29 PM) Potassium Lvl [3.5-5.1 mEq/L] 99 mEq/L (06/08/14 7:15 AM) 100 mEq/L (06/07/14 9:51 PM) 98 mEq/L (06/04/14 6:29 PM) Chloride Lvl [95-109 mEq/L] 30 mEq/L (06/08/14 7:15 AM) 30 mEq/L (06/07/14 9:51 PM) 28 mEq/L (06/04/14 6:29 PM) CO2 [24-32 mEq/L] 10.3 mEq/L (06/08/14 7:15 AM) 12.1 mEq/L (06/07/14 9:51 PM) 14.1 mEq/L (06/04/14 6:29 PM) AGAP [10.0-20.0 mEq/L] CHEM PANEL 1 2 3 Most recent to oldest [Reference Range]: 1.3 mg/dL (06/08/14 7:15 AM) 1.5 mg/dL *HI* (06/07/14 9:51 PM) 2.0 mg/dL *HI* (06/04/14 6:29 PM) Creatinine Lvl [0.5-1.4 mg/dL] 39 mL/min/1.73m2 1 *NA* (06/08/14 7:15 AM) 32 mL/min/1.73m2 2 *NA* (06/07/14 9:51 PM) 23 mL/min/1.73m2 3 *NA* (06/04/14 6:29 PM) eGFR 33 mg/dL *HI* (06/08/14 7:15 AM) 33 mg/dL *HI* (06/07/14 9:51 PM) 32 mg/dL *HI* (06/04/14 6:29 PM) BUN [7-22 mg/dL] 22 (06/07/14 9:51 PM) 16 (06/04/14 6:29 PM) 11 (05/31/14 2:21 AM) B/C Ratio [6-25] 96 mg/dL 4 (06/08/14 7:15 AM) 102 mg/dL 5 *HI* (06/07/14 9:51 PM) 162 mg/dL 6 *HI* (06/04/14 6:29 PM) Glucose Lvl [70-99 mg/dL] 5.8 g/dL *LOW* (06/07/14 9:51 PM) 7.3 g/dL (06/04/14 6:29 PM) 7.1 g/dL (05/31/14 2:21 AM) Total Protein [6.4-8.4 g/dL] 2.7 g/dL *LOW* (06/07/14 9:51 PM) 3.4 g/dL *LOW* (06/04/14 6:29 PM) 3.4 g/dL *LOW* (05/31/14 2:21 AM) Albumin Lvl [3.5-5.0 g/dL] 3.1 g/dL (06/07/14 9:51 PM) 3.9 g/dL (06/04/14 6:29 PM) 3.7 g/dL (05/31/14 2:21 AM) Globulin [2.0-4.0 g/dL] 0.9 (06/07/14 9:51 PM) 0.9 (06/04/14 6:29 PM) 0.9 (05/31/14 2:21 AM) A/G Ratio [0.7-1.6] 9.3 mg/dL (06/08/14 7:15 AM) 9.0 mg/dL (06/07/14 9:51 PM) 9.4 mg/dL (06/04/14 6:29 PM) Calcium Lvl [8.5-10.5 mg/dL] 3.6 mg/dL (06/08/14 7:15 AM) 3.8 mg/dL (06/07/14 9:51 PM) 3.7 mg/dL (06/04/14 6:29 PM) Phosphorus [2.5-4.5 mg/dL] 2.5 mg/dL *HI* (06/08/14 7:15 AM) 2.5 mg/dL *HI* (06/07/14 9:51 PM) 3.0 mg/dL *HI* (06/04/14 6:29 PM) Magnesium Lvl [1.8-2.4 mg/dL] 19 unit/L (06/07/14 9:51 PM) 30 unit/L (06/04/14 6:29 PM) 20 unit/L (05/31/14 2:21 AM) ALT [0-65 unit/L] 16 unit/L (06/07/14 9:51 PM) 35 unit/L (06/04/14 6:29 PM) 17 unit/L (05/31/14 2:21 AM) AST [0-37 unit/L] 85 unit/L (06/07/14 9:51 PM) 112 unit/L (06/04/14 6:29 PM) 105 unit/L (05/31/14 2:21 AM) Alk Phos [39-136 unit/L] 0.6 mg/dL (06/07/14 9:51 PM) 0.6 mg/dL (06/04/14 6:29 PM) 0.8 mg/dL (05/31/14 2:21 AM) Bili Total [0.2-1.3 mg/dL] 24 ng/mL 7 *LOW* (06/01/14 6:24 AM) Vitamin D, 25-OH, Total [30-100 ng/mL] [...] values reflect the clinical guidelines of the [place] [employer]. 5Interpretive Data: Adult reference range values reflect the clinical guidelines of the [place] [employer]. 6Interpretive Data: Adult reference range values reflect the clinical guidelines of the [place] [employer]. 7Interpretive Data: Reference range is based on recommendations in the Endocrine Society Clinical Practice Guideline (J Clin Endocrinol Metab 2011;96:9747-9814) CARDIAC ENZYMES 1 2 3 Most recent to oldest [Reference Range]: 80 unit/L (05/31/14 8:18 AM) 79 unit/L (05/31/14 2:21 AM) 74 unit/L (05/30/14 10:06 PM) Total CK [12-191 unit/L] 2.1 ng/mL (05/31/14 8:18 AM) 2.0 ng/mL (05/31/14 2:21 AM) 2.1 ng/mL (05/30/14 10:06 PM) CK MB [0.5-3.6 ng/mL] 2.6 *HI* (05/31/14 8:18 AM) 2.5 (05/31/14 2:21 AM) 2.8 *HI* (05/30/14 10:06 PM) CK MB Index [0.0-2.5] 0.05 ng/mL (05/31/14 8:18 AM) 0.05 ng/mL (05/31/14 2:21 AM) 0.05 ng/mL (05/30/14 10:06 PM) Troponin-I [0.00-0.40 ng/mL] 317 pg/mL 8 *HI* (06/07/14 9:51 PM) 480 pg/mL 9 *HI* (05/30/14 3:05 PM) BNP [<=100 pg/mL] 8Interpretive Data: Elevated results [...] Sodium retaining drugs, and compensated/treated heart failure. LIPIDS 1 2 3 Most recent to oldest [Reference Range]: 3.81 *LOW* (05/31/14 4:15 AM) CHD Risk [3.90-5.80] 141 mg/dL (05/31/14 4:15 AM) Chol [<=199 mg/dL] 102 mg/dL (05/31/14 4:15 AM) Trig [<=149 mg/dL] 37 mg/dL *LOW* (05/31/14 4:15 AM) HDL [>=61 mg/dL] 84 mg/dL (05/31/14 4:15 AM) LDL (Calculated) [<=99 mg/dL] 20 *NA* (05/31/14 4:15 AM) VLDL SPECIAL CHEMISTRY 1 2 3 Most recent to oldest [Reference Range]: 5.6 % (05/31/14 4:15 AM) Hgb A1C [<=5.6 %] HEMATOLOGY 1 2 3 Most recent to oldest [Reference Range]: 6.2 K/CMM (06/08/14 7:15 AM) 6.6 K/CMM (06/07/14 9:51 PM) 10.4 K/CMM (06/04/14 6:29 PM) WBC [3.7-10.4 K/CMM] 4.82 M/CMM (06/08/14 7:15 AM) 4.53 M/CMM (06/07/14 9:51 PM) 5.25 M/CMM (06/04/14 6:29 PM) RBC [4.20-5.40 M/CMM] 14.5 g/dL (06/08/14 7:15 AM) 13.6 g/dL (06/07/14 9:51 PM) 16.0 g/dL (06/04/14 6:29 PM) Hgb [12.0-16.0 g/dL] 44.6 % (06/08/14 7:15 AM) 41.5 % (06/07/14 9:51 PM) 48.2 % *HI* (06/04/14 6:29 PM) Hct [36.0-48.0 %] 92.6 fL (06/08/14 7:15 AM) 91.6 fL (06/07/14 9:51 PM) MCV [80.0-98.0 fL] 91.8 fL (06/04/14 6:29 PM) MCV [81.0-99.0 fL] 30.1 pg (06/08/14 7:15 AM) 30.1 pg (06/07/14 9:51 PM) 30.5 pg (06/04/14 6:29 PM) MCH [27.0-31.0 pg] 32.5 g/dL (06/08/14 7:15 AM) 32.9 g/dL (06/07/14 9:51 PM) 33.2 g/dL (06/04/14 6:29 PM) MCHC [32.0-36.0 g/dL] 14.2 % (06/08/14 7:15 AM) 14.3 % (06/07/14 9:51 PM) 14.7 % *HI* (06/04/14 6:29 PM) RDW [11.5-14.5 %] 184 K/CMM (06/08/14 7:15 AM) 172 K/CMM (06/07/14 9:51 PM) 240 K/CMM (06/04/14 6:29 PM) Platelet [133-450 K/CMM] 8.8 fL (06/08/14 7:15 AM) 8.6 fL (06/07/14 9:51 PM) 9.0 fL (06/04/14 6:29 PM) MPV [7.4-10.4 fL] 65.4 % (06/08/14 7:15 AM) 69.6 % (06/07/14 9:51 PM) 67.9 % (06/04/14 6:29 PM) Segs [45.0-75.0 %] 22.6 % (06/08/14 7:15 AM) 19.1 % *LOW* (06/07/14 9:51 PM) 19.9 % *LOW* (06/04/14 6:29 PM) Lymphocytes [20.0-40.0 %] 7.7 % (06/08/14 7:15 AM) 7.5 % (06/07/14 9:51 PM) 8.8 % (06/04/14 6:29 PM) Monocytes [2.0-12.0 %] 3.4 % (06/08/14 7:15 AM) 2.8 % (06/07/14 9:51 PM) 2.4 % (06/04/14 6:29 PM) Eosinophils [0.0-4.0 %] 0.9 % (06/08/14 7:15 AM) 1.0 % (06/07/14 9:51 PM) 1.0 % (06/04/14 6:29 PM) Basophils [0.0-1.0 %] 4.1 K/CMM (06/08/14 7:15 AM) 4.6 K/CMM (06/07/14 9:51 PM) 7.1 K/CMM (06/04/14 6:29 PM) Segs-Bands # [1.5-8.1 K/CMM] 1.4 K/CMM (06/08/14 7:15 AM) 1.3 K/CMM (06/07/14 9:51 PM) 2.1 K/CMM (06/04/14 6:29 PM) Lymphocytes # [1.0-5.5 K/CMM] 0.5 K/CMM (06/08/14 7:15 AM) 0.5 K/CMM (06/07/14 9:51 PM) 0.9 K/CMM *HI* (06/04/14 6:29 PM) Monocytes # [0.0-0.8 K/CMM] 0.2 K/CMM (06/08/14 7:15 AM) 0.2 K/CMM (06/07/14 9:51 PM) 0.2 K/CMM (06/04/14 6:29 PM) Eosinophils # [0.0-0.5 K/CMM] 0.1 K/CMM (06/08/14 7:15 AM) 0.1 K/CMM (06/07/14 9:51 PM) 0.1 K/CMM (06/04/14 6:29 PM) Basophils # [0.0-0.2 K/CMM] 16.3 seconds *HI* (06/12/14 3:29 AM) 15.3 seconds *HI* (06/11/14 3:53 AM) 14.2 seconds (06/10/14 4:15 AM) PT [12.0-14.7 seconds] 1.33 10 *HI* (06/12/14 3:29 AM) 1.22 11 *HI* (06/11/14 3:53 AM) 1.11 12 (06/10/14 4:15 AM) INR [0.85-1.17] 25.1 seconds 13 (06/06/14 5:21 PM) 22.8 seconds 14 *LOW* (05/30/14 3:05 PM) PTT [22.9-35.8 seconds] 10Interpretive Data: RECOMMENDED RANGES [...] Heparin Therapeutic Range: 57 - 92 Seconds 14Interpretive Data: Heparin Therapeutic Range: 57 - [...] Clinical Document Author: Earnest Azul MD Date: 06/12/14 PHYSICAL MEDICINE AND REHABILITATION FOLLOW UP CHIEF COMPLAINT IDENTIFICATION: An 83-year-old lady being seen for ongoing rehabilitation needs after an acute stroke. INTERVAL EVENTS AND SUBJECTIVE: All interval events reviewed. Denies fevers, chills, nausea, vomiting, shortness of breath, chest pain, palpitations, headaches, dizziness. Pain is not limiting therapies. No bowel or bladder complaints. No strength or sensation changes. Ready to come to acute inpatient rehab. Therapy progress reviewed. PHYSICAL EXAMINATION: Vitals and Temp: VitalsTmp(F)[id number] 06/12 12:[id number] 2.0L/m 06/12 08:[id number] 2.0L/m 06/12 04:[id number]--- 06/12 00:[id number]--- 06/11 23:11 1696 21% 24 Hr Tmax: 98.4F (36.89c) at 06/12 12:00Vital Signs are the last 5 in the past 48 hours. GENERAL: NAD lying in bed. PSYCH: She is alert, oriented, appropriate. Pleasant. HEENT: Pupils equal, round, reactive to light. Extraocular muscles intact. Moist mucous membranes. CARDIOVASCULAR: Strong pulses 2+. Regular rhythm. HEENT: Pupils equal, round, react to light. PULMONARY: Respirations unlabored, no conversational dyspnea. ABDOMEN: Doughy, nontender, nondistended. GENITOURINARY: No Toribio. SKIN: No new breakdown. NEUROMUSCULOSKELETAL: right Shoulder elevation, elbow flexion, elbow extension 3/5, wrist extension 4/5, finger flexion 4+/5. Fast and fine finger movements are delayed on the right side in comparison to the left side. Right hip flexion 1/5, knee extension 2/5, ankle dorsiflexion, 4-/5 great toe extension 4-/5. Left-sided strength is 5/5. There is no significant facial droop. LABORATORY DATA: Labs (Last four charted values) WBC 6.2(JUN 08)6.6(JUN 07)10.4(JUN 04)7.9(JUN 01) Hgb 14.5(JUN 08)13.6(JUN 07)16.0(JUN 04)15.9(JUN 01) Hct 44.6(JUN 08)41.5(JUN 07)H 48.2(JUN 04)47.6(JUN 01) Plt 184(JUN 08)172(JUN 07)240(JUN 04)190(JUN 01) Na 135(JUN 08)138(JUN 07)135(JUN 04)138(JUN 01) K 4.3(JUN 08)4.1(JUN 07)5.1(JUN 04)L 3.2(JUN 01) CO2 30(JUN 08)30(JUN 07)28(JUN 04)28(JUN 01) Cl 99(JUN 08)100(JUN 07)98(JUN 04)102(JUN 01) Cr 1.3(JUN 08)H 1.5(JUN 07)H 2.0(JUN 04)1.4(JUN 01) BUN H 33(JUN 08)H 33(JUN 07)H 32(JUN 04)18(JUN 01) Glucose Random 96(JUN 08)H 102(JUN 07)H 162(JUN 04)H 107(JUN 01) Mg H 2.5(JUN 08)H 2.5(JUN 07)H 3.0(JUN 04)2.4(JUN 01) Phos 3.6(JUN 08)3.8(JUN 07)3.7(JUN 04)4.1(JUN 01) Ca 9.3(JUN 08)9.0(JUN 07)9.4(JUN 04)9.0(JUN 01) PT H 16.3(JUN 12)H 15.3(JUN 11)14.2(JUN 10)H 14.9(JUN 09) INR H 1.33(JUN 12)H 1.22(JUN 11)1.11(JUN 10)H 1.18(JUN 09) PTT 25.1(JUN 06)L 22.8(MAY 30) Troponin 0.05(MAY 31)0.05(MAY 31)0.05(MAY 30)0.04(MAY 30) CK MB 2.1(MAY 31)2.0(MAY 31)2.1(MAY 30)1.9(MAY 30) Total CK 80(MAY 31)79(MAY 31)74(MAY 30)73(MAY 30) IMAGING DIAGNOSTIC STUDIES: No new imaging. ASSESSMENT AND PLAN: This is an 83-year-old lady with: 1. 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 -Cont. post-stroke medical risk reduction. -ongoing daily stroke education. Today we discussed modifiable risk factors -Cont. therapies as below. 2. Malignant hypertension, atrial fibrillation, acute renal insufficiency: -Stabilized. -on Pacemaker precautions until Thursday and then can begin weight bearing. -Started on apixaban by Dr. Houser, and tolerating -Blood pressures within target ranges. 3. Rehabilitation for deficits including incomplete right hemiparesis, dysarthria, resulting in altered mobility, ADLs, IADLs: The patient can participate in 3 hours of therapy per day and demonstrates appropriate carryover, and is appropriate for inpatient rehabilitation admission. The pt is medically stable with no further medical/surgical interventions planned, but has complex rehab needs requiring intensive therapy intervention. I anticipate that the patient will meet the following criteria: 1) able to make a meaningful amount of functional progress in a reasonable amount of time. 2) The patient is willing and able to participate in rehabilitation therapies based on progress during acute care. 3) The patient will require 24 hours supervision from rehabilitation physicians and nursing. 4) Rehabilitation goals cannot be achieved at a lower level of care. 5) Patient requires a minimum of the 3 hours of intensive therapy per day. -Rehab stay expected to be approx 21 days. -48 hour preadmission screen completed. -Rehab orders written. -Will see her once she transfers to rehab facility. Thank you very much for allowing me to participate in her care.
[2019-01-19 18:18] LABS: BILIRUBIN,URINE 2+ (NEGATIVE); CLARITY,URINE SL CLOUDY (CLEAR); COLOR,URINE YELLOW (YELLOW); KETONES,URINE 1+ (NEGATIVE); LEUKOCYTE ESTERASE ,URINE TRACE (NEGATIVE); NITRITE,URINE NEGATIVE (NEGATIVE); PROTEIN,URINE DIPSTICK 1+ (NEGATIVE); URINE UROBILINOGEN 1 mg/dL (0.2 - 1)
[2019-01-19 18:34] LABS: BACTERIA,URINE MANY /HPF; EPITHELIAL CELLS,URINE RARE /LPF
[2019-01-19 20:33] VITALS: BP 126/92
== END 2019-01-19 20:43 | disposition home or self-care (01) ==
LOC: ER 15:08
DX: R30.0 Dysuria (principal); N30.90 Cystitis, unspecified without hematuria; B37.3 Candidiasis of vulva and vagina
CPT/HCPCS: 81001; 99283

== ENCOUNTER 2019-08-21 01:12 | Emergency (ER) | payer MEDICARE ==
[~2019-08-21] VITALS: Ht 170.2 cm; Wt 63.5 kg
[2019-08-21 01:18] LABS: BILIRUBIN,URINE SMALL (NEGATIVE); CLARITY,URINE SL CLOUDY (CLEAR); COLOR,URINE YELLOW (YELLOW); KETONES,URINE TRACE (NEGATIVE); LEUKOCYTE ESTERASE ,URINE NEGATIVE (NEGATIVE); NITRITE,URINE NEGATIVE (NEGATIVE); PROTEIN,URINE DIPSTICK 1+ (NEGATIVE); URINE UROBILINOGEN 0.2 mg/dL (0.2 - 1)
[2019-08-21] MEDS ORDERED: HYDROCODONE/APAP 5MG-325MG TAB PO ONE (01:30)
[2019-08-21 01:32] LABS: BACTERIA,URINE MANY /HPF
[2019-08-21] MEDS ORDERED: CLOTRIMAZOLE-BE15 GM TOP (01:32)
[2019-08-21] MEDS ORDERED: NYSTATIN15 G2 TP (01:32)
[2019-08-21 01:33] LABS: EPITHELIAL CELLS,URINE FEW /LPF; MUCUS,URINE MODERATE (RARE)
[2019-08-21] MEDS ORDERED: MEMANTINE PO (02:50)
[2019-08-21] MEDS ORDERED: COZAAR100 MG PO (02:50)
[2019-08-21] MEDS ORDERED: ALDACTONE25 MG PO (02:50)
--- NOTE | 2019-08-21 02:53 | Diagnostic Imaging Report ---
X-RAY HIPS BILAT 3-4VWS (+/- PELVIS) - 3 VIEWS HISTORY: Pain. COMPARISON: Abdominal radiograph 08/02/2018 FINDINGS: The pelvic osseous structures are partially obscured by bowel gas. Degenerative changes in the lower lumbar spine. Bones: No acute displaced fracture. Osseous alignment is within normal limits. Joints: Degenerative changes in the hips with subchondral cystic and sclerotic changes. Osteophytes of the sacroiliac joints. Normal joint alignment. Soft tissues: Vascular calcifications. Gluteal subcutaneous calcified granulomas. IMPRESSION: No acute displaced fracture. Exam unchanged compared to abdominal radiograph on 07/23/2018. In the setting of low bone mineral density, a nondisplaced hip fracture can be radiographically occult. If there is high clinical suspicion for hip fracture, consider hip MRI without contrast. Advanced degenerative changes in the spine hips and pelvis. Signed by: Georges Aldrich DO on 08/21/2019 2:49 AM
[2019-08-21 06:17] VITALS: BP 109/77
--- NOTE | 2019-08-21 06:30 | NUR ---
SPOKE TO PTS DAUGHTER IN LAW, BENNIE JACOBS ([phone]), INFORMED THAT PT IS READY FOR DC AND THAT STAFF MEMBER FROM [facility] WILL BE IN CONTACT; FAMILY WILL ARRIVE BY 0800 AM TO [facility] [facility]; FAMILY DENIES ANY FURTHER NEEDS OR CONCERNS.
--- NOTE | 2019-08-21 06:55 | NUR ---
received report from off going nurse. patient waiting for transportation home for departure. was informed that family was planning on being here around 8am to retrieve patient. patient in room in bed resting quietly with eyes closed. arroused easily. no s/s of acute distress. resp even and nonlabored.
--- NOTE | 2019-08-21 08:25 | NUR ---
called and spoke with family member. was informed that they would be here at 1000 because she is waiting for another family member to show up to help get patient from car back into home.
== END 2019-08-21 10:47 | disposition home or self-care (01) ==
LOC: ER 01:12
DX: M25.552 Pain in left hip (principal); M25.551 Pain in right hip; S39.012A Strain of muscle, fascia and tendon of lower back, initial encounter; W10.8XXA Fall (on) (from) other stairs and steps, initial encounter; Y92.008 Other place in unspecified non-institutional (private) residence as the place of occurrence of the external cause; L20.9 Atopic dermatitis, unspecified; B35.6 Tinea cruris; L20.82 Flexural eczema
CPT/HCPCS: 73522; 81001; 99283

== ENCOUNTER 2021-01-25 18:04 | Emergency (ER) | payer MEDICARE ==
[~2021-01-25] VITALS: Ht 170.2 cm; Wt 63.5 kg
[~2021-01-25 18:04] MED LIST: ALDACTONE25 MG PO; CLOTRIMAZOLE-BE15 GM TOP; COZAAR100 MG PO; MEMANTINE PO; NYSTATIN15 G2 TP
[2021-01-25 19:32] VITALS: BP 145/75
== END 2021-01-25 20:02 | disposition home or self-care (01) ==
LOC: ER 18:15
DX: R60.9 Edema, unspecified (principal); B35.1 Tinea unguium; F03.90 Unspecified dementia, unspecified severity, without behavioral disturbance, psychotic disturbance, mood disturbance, and anxiety; I10 Essential (primary) hypertension; I50.9 Heart failure, unspecified; I25.10 Atherosclerotic heart disease of native coronary artery without angina pectoris; I48.91 Unspecified atrial fibrillation; Z86.73 Personal history of transient ischemic attack (TIA), and cerebral infarction without residual deficits; Z95.810 Presence of automatic (implantable) cardiac defibrillator
CPT/HCPCS: 93971; 99283